=== PATIENT | male | born 1950 | race Caucasian/White ===

== ENCOUNTER 2021-12-21 00:11 | Day surgery (SDC) | payer OTHER, SELFPAY ==
[2021-12-12 15:06] VITALS: BMI 26.6
--- NOTE | 2021-12-12 15:17 | PC.NURSE ---
Report to the Outpatient Waiting Room, entrance under the green pavilion located off [facility], at time _0800_ on date _12/21/21_. OR Time: _1000_. - You and your visitor will be asked a series of questions to screen for COVID 19 for your protection. - A mask is required within the hospital. Preoperative COVID Testing Requirements: NONE Patients may have clear liquids (water, carbonated beverages, clear teas, apple juice) until 3 hours prior to surgery (0700 AM) with a maximum of 20 ounces. - No food from midnight until time of surgery Take the following medications with a SIP of water the morning of surgery: __PAIN PILL IF NEEDED__ Medications to discontinue per ANESTHESIA - _BALANCE OF NATURE 3 DAYS PRIOR TO SURGERY, Date to take last dose_12/17/21__ Please deodorant, or body powder the day of surgery. No jewelry (including any body piercings) or valuables the day of surgery, leave them at home. Please take a shower or bath the night before, or the morning of, surgery with an antibacterial soap. Wear comfortable, loose fitting clothing. - Jewelry must be removed prior to entering the operating room. Rings and piercings that are not removed may be cut off. - The hospital will not accept responsibility for valuables. - Please leave all valuables, including medications, at home the day of surgery. If you are going home after surgery, a licensed gravel truck driver must drive you home. - NO public transportation without another adult. - We recommend that an adult stay with you for 24 hours following discharge. - We also recommend that you do not drive, make important decision, drink alcoholic beverages, or take any drugs that were not prescribed by your health care provider for at least 24 hours after your discharge time. FOLLOW ALL INSTRUCTIONS GIVEN TO YOU BY DR. BURNS One visitor will be allowed to accompany the patient into the hospital. Patients visitor will be instructed to remain with patient at all times or leave the building. We will allow the visitor to come back to the postoperative area when patient is ready. VISITING HOURS 10AM-7PM, ONE VISITOR PER PT PER DAY, VISITORS MUST REMAIN IN PT'S ROOM WHILE VISITING. Telephone instructions given to ____PT and asked if any additional questions and then verbalized understanding. Patient advised to call surgeon office or pre surgery nurse liaisonVANESA [phone] if any additional questions.
--- NOTE | 2021-12-18 07:05 | P.HP_ITS ---
H&P: HPI History of Present Illness Date/Time: 12/18/21 07:05 pleasant 71-year-old male who has been in our practice since November 2019. He has seen an outside urologist in previously undergone [facility] laser prostatectomy. Despite that he continues to have both obstructive and irritable voiding symptoms. He had little response to medical therapy initially. His urinary frequency and urgency have improved with the addition of oxybutynin but he then developed progressive obstructive voiding symptoms. Recent outpatient cystoscopy shows a piece of residual hyperplastic tissue in the right lateral lobe of his prostate that is serving to cause significant outlet obstruction. After discussion of options he has elected to proceed with resection of that area prostate tissue. He is aware of the risk this including, but not limited to, persistent irritable or obstructive voiding symptoms, hematuria, retrograde ejaculation. Chief Complaint: Enlarged prostate Review of Systems Cardiovascular: Cardiovascular: Denies chest pain, Denies lightheadedness, Denies palpitations and Denies dyspnea Respiratory: Respiratory: Denies dyspnea Gastrointestinal: Gastrointestinal: Denies diarrhea, Denies nausea and Denies vomiting Genitourinary: Genitourinary: Denies hematuria and Denies dysuria Endocrine: Endocrine: Denies palpitations PMFSH Social History Social History Smoking packs per day: 0.5 Smoking cigarettes per day: 10.0 Years smoked: 51 Smoking pack-years: 25.50 Smoking status: Current every day smoker Tobacco type: cigarettes Second hand tobacco smoke exposure: Yes Alcohol intake: never Drinks per week: 6 Substance use: current Substance use type: marijuana Other substance usage details: STATES SMOKING AND EDIBLES 4-5 X WEEK Last use: 12/11/21 Living arrangements: with family Spiritual care concerns: No Meds Home Medications and Allergies Home Medications Medication Instructions Recorded Confirmed Type Balance Of Nature 6 tab-cap DAILY 12/12/21 12/12/21 History alprazolam 0.5 mg HS 12/12/21 12/12/21 History diclofenac sodium 75 mg PO QAM 12/12/21 12/12/21 History hydrocodone-acetaminophen 1 tablet Q4H PRN 12/12/21 12/12/21 History vibegron [Gemtesa] 75 mg PO QAM 12/12/21 12/12/21 History Allergies Allergy/AdvReac Type Severity Reaction Status Date / Time No Known Allergies Allergy Verified 12/12/21 15:01 Exam Const: General: no acute distress Resp: Effort & Inspection: normal respiratory effort GI: Inspection: non-distended GI Palp: No abdominal tenderness and No Guarding due to palpation present (GI) Auscultation: normal bowel sounds Assessment and Plan Assessment and plan (1) BPH loc w urin obs/LUTS: Code(s): N40.1 - Benign prostatic hyperplasia with lower urinary tract symptoms Status: Acute Assessment and Plan: * TURP (residual prostate tissue following laser prostatectomy)
[2021-12-21] VITALS (13 sets, daily range): BP systolic 120–155; BP diastolic 50–96; PULSE 75–89; RESP 10–20; TEMP 36.4–37.6; O2SAT 89–100
--- NOTE | 2021-12-21 06:44 | WPDHPUPDATE1 ---
History and Physical Update Update Date/Time: 12/21/21 06:44 History and Physical has been reviewed, including an updated exam of the patient. There are NO changes in the patient's condition. Risks, benefits, and alternatives have been discussed and questions answered. Patient agrees to proceed with procedure.
[2021-12-21] MEDS: LACTATED RINGERS 1,000 ML 30 ML IV CONT ×2 (08:13→09:52)
--- NOTE | 2021-12-21 08:26 | P.PNAN_ITS ---
Anes - Initial Pre Proc Eval Procedure: Operation Date: 12/21/21 10:00 Proposed Procedures p Mini Trans Urethral Resection Prostate - Nomi Crouch MD Date/Time: 12/21/21 08:26 Surgeon: Nomi Crouch MD Pre Op Diagnosis: BPH Patient Data Age: 71 Gender: M Height: 1.73 m Weight: 82 kg Last Vital Signs Temp 36.8 C 12/21/21 07:57 Pulse 84 12/21/21 07:57 Resp 16 12/21/21 07:57 BP 138/72 12/21/21 07:57 Pulse Ox 97 12/21/21 07:57 Allergies Allergy/AdvReac Type Severity Reaction Status Date / Time No Known Allergies Allergy Verified 12/21/21 08:01 Home Medications Medication Instructions Recorded Confirmed Type Balance Of Nature 6 tab-cap DAILY 12/12/21 12/21/21 History alprazolam 0.5 mg HS 12/12/21 12/12/21 History diclofenac sodium 75 mg PO QAM 12/12/21 12/21/21 History hydrocodone-acetaminophen 1 tablet Q4H PRN 12/12/21 12/21/21 History vibegron [Gemtesa] 75 mg PO QAM 12/12/21 12/21/21 History Patient hx anesthesia problems: none Family hx anesthesia problems: none Results Review: All pre-operative results and documents have been reviewed as part of the pre-operative evaluation. [facility] Past Medical History Medical History Anxiety Chronic back pain Marijuana smoker Overweight Smoker Surgical History Surgical History (Updated 12/21/21 @ 08:30 by Jm Escobar MD) H/O lumbosacral spine surgery History of total hip arthroplasty Social History Social History Smoking packs per day: 0.5 Smoking cigarettes per day: 10.0 Years smoked: 51 Smoking pack-years: 25.50 Smoking status: Current every day smoker Tobacco type: cigarettes Second hand tobacco smoke exposure: Yes Alcohol intake: never Drinks per week: 6 Substance use: current Substance use type: marijuana Other substance usage details: STATES SMOKING AND EDIBLES 4-5 X WEEK Last use: 12/11/21 Living arrangements: with family Spiritual care concerns: No Anes - Eval Final PreProcedure Day of Procedure 12/21/21 08:26 Patient weight: overweight Heart: regular rate and rhythm Lungs: clear to auscultation Airway: Mallampati scale class II Neurological: alert and oriented Last oral intake: >/= 8 hours ASA classification: III Emergent: no Anesthetic plan: proceed Anesthesia type and monitoring: general LMA and standard monitoring Results Review: All pre-operative results and documents have been reviewed as part of the pre-operative evaluation. Informed Consent: The patient's anesthetic plan and its attendant risks and benefits were discussed with the patient/family/POA. Questions were solicited and answers provided to the satisfaction of the patient/family/POA.
[2021-12-21] MEDS: ceFAZolin 2 GM/D5W 50 ML 2 GM/50 ML BAG IVPB (09:03)
[2021-12-21] MEDS: LIDOCAINE HCL 2% GEL UROJET 10 ML PKG MUCOUS MEM (09:19)
[2021-12-21] MEDS: fentaNYL CITRATE INJ (*CRX) 100 MCG/2 ML VIAL 25 MCG IV PUSH ×4 (10:27→11:05)
--- NOTE | 2021-12-21 11:41 | ADMGEN ---
This patient, Terry Cherry, was admitted to [facility] Surgery-9. Patient/family oriented to hospital policies and general routines including ID bracelet, bed and alarms, visiting hours, pain management, procedures, bathroom and other care routines, personal items, smoking policy, room service/diet, and visiting hours. Information on how to activate the Rapid Response Team has been discussed. Patient/Family are encouraged to report perceived risks to care and to ask questions if they do not understand what they are told or what they should do.
[2021-12-21] MEDS: DEXTROSE 5%/LACTATED RINGERS 1,000 ML 125 ML IV CONT (11:56)
[2021-12-21] MEDS: DOCUSATE SODIUM 100 MG CAPSULE PO (16:54)
[2021-12-21] MEDS: ALPRAZolam (*CRX) 0.5 MG TABLET PO (20:58)
[2021-12-21] MEDS: HYDROcodone/acetaminophen (*CRX) 5-325 MG TABLET 1 TAB PO (22:24)
[2021-12-22 01:09] VITALS: RESP 20
[2021-12-22 05:00] VITALS: BP 134/71; PULSE 91; RESP 20; TEMP 36.8; O2SAT 95
[2021-12-22] MEDS: HYDROcodone/acetaminophen (*CRX) 5-325 MG TABLET 1 TAB PO (05:58)
[2021-12-22 06:02] LABS: Hematocrit 45.9 % (42.0-52.0); Hemoglobin 15.7 g/dL (14.0-18.0)
[2021-12-22 06:38] LABS: Anion Gap 8 mmol/L (8-16); Blood Urea Nitrogen 14 mg/dL (9-20); Carbon Dioxide 23 mmol/L (22-30); Chloride 106 mmol/L (98-107); Estimated CRCL calculation 51 ml/min; Estimated Glomerular Filt Rate > 60; Glucose 115 mg/dL (65-110); Potassium 4.2 mmol/L (3.4-5.0); Sodium 137 mmol/L (137-145)
--- NOTE | 2021-12-22 07:21 | WPDUROPN2 ---
Progress Note: A&P Assessment and Plan (1) BPH loc w urin obs/LUTS: Code(s): N40.1 - Benign prostatic hyperplasia with lower urinary tract symptoms Status: Acute Assessment and Plan: Doing well POD #1 Stop CBI now / voiding trial later this moring. Anticipate discharge midday. Subjective Subjective Date/Time Seen: 12/22/21 07:21 Comfortable, no complaints. Review of Systems Cardiovascular: Cardiovascular: Denies chest pain, Denies lightheadedness, Denies palpitations and Denies dyspnea Respiratory: Respiratory: Denies dyspnea Gastrointestinal: Gastrointestinal: Denies diarrhea, Denies nausea and Denies vomiting Genitourinary: Genitourinary: Denies hematuria and Denies dysuria Endocrine: Endocrine: Denies palpitations Exam Const: General: no acute distress Resp: Effort & Inspection: normal respiratory effort GI: Inspection: non-distended GI Palp: No abdominal tenderness and No Guarding due to palpation present (GI) Auscultation: normal bowel sounds Objective Data Vital Signs Vital Signs: Vital Signs - 24 hr 12/21/21 07:57 12/21/21 09:58 12/21/21 10:13 Temperature 98.2 F 97.9 F Pulse Rate 84 79 83 Respiratory Rate 16 12 10 L Blood Pressure 138/72 120/78 155/96 H Pulse Oximetry 97 100 100 12/21/21 10:28 12/21/21 10:43 12/21/21 10:58 Temperature Pulse Rate 84 87 75 Respiratory Rate 12 12 12 Blood Pressure 153/88 H 147/76 H 137/91 H Pulse Oximetry 93 92 92 12/21/21 11:13 12/21/21 11:23 12/21/21 11:38 Temperature 97.6 F 97.5 F L Pulse Rate 79 84 80 Respiratory Rate 14 16 14 Blood Pressure 149/79 H 134/65 133/70 Pulse Oximetry 92 93 92 12/21/21 12:08 12/21/21 13:08 12/21/21 17:08 Temperature 97.9 F 99.5 F 98.3 F Pulse Rate 87 88 80 Respiratory Rate 14 16 14 Blood Pressure 132/83 135/76 127/65 Pulse Oximetry 94 94 94 12/21/21 21:00 12/22/21 01:09 12/22/21 05:00 Temperature 99.6 F 98.3 F Pulse Rate 89 91 Respiratory Rate 20 20 20 Blood Pressure 122/50 L 134/71 Pulse Oximetry 89 L 95 Intake/Output Intake/Output: Intake & Output 12/19/21 12/20/21 12/21/21 12/22/21 23:59 23:59 23:59 23:59 Intake Total 2304 6050 Output Total 5775 6000 Balance -3471 50 Meds/Results Medications: Active Medications Generic Name Dose Route Start Last Admin Trade Name Freq PRN Reason Stop Dose Admin Hydrocodone Bitart/Acetaminophen 1 tab 12/21/21 11:23 12/22/21 05:58 Hydrocodone/Acetaminophen (*Crx) 5-325 Mg Tablet PO 1 tab Q4H PRN Administration Pain Rated 1-6 Alprazolam 0.5 mg 12/21/21 21:00 12/21/21 20:58 Alprazolam (*Crx) 0.5 Mg Tablet PO 0.5 mg HS VALENTINA Administration Cephalexin HCl 500 mg 12/22/21 09:00 Cephalexin 500 Mg Capsule PO QID VALENTINA Docusate Sodium 100 mg 12/21/21 17:00 12/21/21 16:54 Docusate Sodium 100 Mg Capsule PO 100 mg BID VALENTINA Administration Hyoscyamine 0.125 mg 12/21/21 11:23 Hyoscyamine Sulfate 0.125 Mg Tablet SUBLINGUAL Q6H PRN Bladder Spasm Morphine Sulfate 2 mg 12/21/21 11:23 Morphine Sulfate (*Crx) 2 Mg/Ml Inj IV PUSH Q2H PRN Pain Rated 7-10 Naloxone HCl 0.1 mg 12/21/21 11:23 Naloxone Hcl 0.4 Mg/Ml Vial IV PUSH Q2M PRN Opiate Reversal Ondansetron HCl 4 mg 12/21/21 11:23 Ondansetron Inj 4 Mg/2 Ml Vial IV PUSH Q12H PRN Nausea And Vomiting Labs Labs: Laboratory Results - last 24 hr 12/22/21 12/22/21 05:51 05:51 Hgb 15.7 Hct 45.9 Sodium 137 Potassium 4.2 Chloride 106 Carbon Dioxide 23 Anion Gap 8 BUN 14 Creatinine 1.10 Estim Creat Clear Calc 51 Estimated GFR > 60 Glucose 115 H Calcium 9.0
[2021-12-22 08:00] VITALS: PULSE 91; RESP 20; O2SAT 95
[2021-12-22] MEDS: DOCUSATE SODIUM 100 MG CAPSULE PO (08:37)
[2021-12-22] MEDS: CEPHALEXIN 500 MG CAPSULE PO (08:37)
[2021-12-22 08:51] VITALS: BP 148/83; PULSE 68; RESP 17; TEMP 37.2; O2SAT 98
--- NOTE | 2021-12-22 11:05 | P.DS_ITS ---
DS: Admitting Diagnosis Discharge Date 12/22/2021 Admitting Diagnosis BPH DS: Discharge Diagnosis Discharge Diagnosis (1) BPH loc w urin obs/LUTS: Code(s): N40.1 - Benign prostatic hyperplasia with lower urinary tract symptoms Status: Acute DS: Summary Hospital Course Hospital Course: This patient with longstanding prostatism refractory for medical management was admitted on the morning of his planned TURP. The procedure was undertaken on that same day in an uneventful fashion. His post- operative course was, likewise, uneventful. On the evening of the procedure he was tolerating a diet. On POD#1 his urine was clear on CBI. The urine remained clear and, therefore, the catheter was removed late morning. The patient was observed for several hours, until he demonstrated he could void effectively without significant hematuria. He was discharged with careful instruction on limiting physical activity x2 weeks and plans to f/ in 2-3 weeks. At discharge he was comfortable and tolerating a diet. Time Spent with Patient Time attestation: Total time spent providing and/or coordinating discharge services: Exam Const: General: no acute distress Resp: Effort & Inspection: normal respiratory effort GI: Inspection: non-distended GI Palp: No abdominal tenderness and No Guarding due to palpation present (GI) Auscultation: normal bowel sounds DS: Data Data Completed and Pending Pending studies at discharge: Pending at discharge 12/21/21 09:34 Surgical [PTH] Routine Labs on day of discharge: Labs from last 24 hours 12/22/21 12/22/21 05:51 05:51 Hgb 15.7 Hct 45.9 Sodium 137 Potassium 4.2 Chloride 106 Carbon Dioxide 23 Anion Gap 8 BUN 14 Creatinine 1.10 Estim Creat Clear Calc 51 Estimated GFR > 60 Glucose 115 H Calcium 9.0 Discharge Plan Discharge Patient Disposition: Home, Self-Care Discharge Instructions: 1) Activity: No lifting/straining >15lbs. x2 weeks. 2) Diet: Resume normal pre-admission diet. 3) Follow-up: 2-3 weeks / call office for appointment ([phone]). Stand Alone Forms: General Discharge Instructions Discharge Orders: Discharge Order (Routine); Ordered 12/22/21 Ordered By: Nomi Crouch Discharge Medications: New sulfamethoxazole-trimethoprim 800-160 mg tablet 1 tablet PO Q12H Qty: 6 RF: 0 hydrocodone-acetaminophen 7.5-325 mg tablet 1 tablet PO Q6H PRN (Reason: pain) Qty: 12 RF: 0 docusate sodium [Colace] 100 mg capsule 100 mg PO DAILY Qty: 30 RF: 0 Continued alprazolam 0.5 mg tablet 0.5 mg HS RF: 0 hydrocodone-acetaminophen 7.5-325 mg tablet 1 tablet Q4H PRN (Reason: Pain) RF: 0 Balance Of Nature 6 tab-cap DAILY RF: 0 Held diclofenac sodium 75 mg tablet,delayed release (DR/EC) 75 mg PO QAM RF: 0 Hold Instructions: Resume on 12/25/21. Discontinued Gemtesa 75 mg Tablet 75 mg PO QAM RF: 0
--- NOTE | 2021-12-27 11:05 | P.OP_ITS ---
Procedure Note - Detailed Date of Procedure 12/27/21 Pre-op Diagnosis BPH Post-op Diagnosis same Procedure Performed TURP Surgeon Nomi Crouch MD Anesthesia general Description of Procedure The patient was brought to the operative suite where he is prepped and draped in routine sterile fashion while in the dorsal lithotomy position after the uneventful induction of a general LMA anesthetic. A 27 Malian resectoscope sheath was placed into his bladder. He had no urethral strictures. The patient had bilobar hyperplasia with no median lobe. The bladder itself was endoscopically normal, showing no mucosal hyperemia, intravesical neoplasm or foreign bodies. There was a single, orthotopic ureteral orifice bilaterally. These orifices were identified and preserved throughout the remainder of the procedure. He patient has evidence of prior laser prostatectomy but a moderate amount of residual tissue that is obstructing the prostatic urethra. The left lateral lobe was resected starting at the 6 o'clock position, working counter clockwise to the 12 o'clock position. Again, resection was carried out from the bladder neck to the verumontanum until the capsular fibers of the prostate were identified. The right lateral lobe was resected in a similar fashion starting at the 6 o'clock position working clockwise to the 12 o'clock position and carried out until the capsular fibers of the prostate were identified. Apical tissue was then circumferentially resected. All chips were evacuated from the bladder using an [employer] evacuator. Hemostasis was obtained with electric cautery. The ureteral orifices were again inspected and found to be without injury. Estimated blood loss throughout this procedure was []cc. The patient was taken to recovery room having tolerated this well. Estimated Blood Loss 50 Urine Output 200 Drains Yes Packing No Pathology yes Complications No immediate complications Condition stable Disposition PACU
== END 2021-12-22 12:05 | disposition home or self-care (01) ==
LOC: ANHSURGERY 10:15 → ANHSUROVER 11:27
PROVIDERS: PCP Internal Medicine; Visit Provider Urology
PROC: 0VT08ZZ Resection of Prostate, Via Natural or Artificial Opening Endoscopic (ICD-10-PCS; CPT 52601; principal; 2021-12-21 10:00)
DX: N40.1 Benign prostatic hyperplasia with lower urinary tract symptoms (principal); R33.8 Other retention of urine; F17.210 Nicotine dependence, cigarettes, uncomplicated; F12.90 Cannabis use, unspecified, uncomplicated; F41.9 Anxiety disorder, unspecified
CPT/HCPCS: 52601; 36415; 80048; 85014; 85018; 88305; A9270; C1758; J0690; J1100; J2250; J2405; J2704; J3010; J7120; J7121

== ENCOUNTER 2023-08-23 00:59 | Day surgery (SDC) | payer OTHER, SELFPAY ==
[2023-08-13 14:50] VITALS: BMI 26.6
--- NOTE | 2023-08-22 16:34 | PM.HPGS ---
History of Present Illness History of Present Illness Consent: Risks, benefits, and alternatives have been discussed and questions answered. Patient agrees to proceed with procedure. Chief complaint: HX colon polyps Narrative: Terry Cherry is a 72 year old male The history of colon polyps referred for colon cancer screening. Review of Systems Review of Systems: All systems reviewed & are unremarkable except as noted in HPI and below PMFSH Past Medical History Medical History Anxiety Chronic back pain Marijuana smoker Overweight Smoker Surgical History Surgical History H/O lumbosacral spine surgery History of total hip arthroplasty Social History Social History Smoking packs per day: 1 Smoking cigarettes per day: 20.0 Years smoked: 53 Smoking pack-years: 53.00 Smoking status: Former smoker Tobacco type: cigarettes Second hand tobacco smoke exposure: Yes Alcohol intake: current Drinks per week: 10 Alcohol use details: BEERS Substance use: current Substance use type: marijuana Other substance usage details: SMOKES AND GUMMIES Last use: 12/20/21 Living arrangements: with family Spiritual care concerns: No Meds Home Medications and Allergies Home Medications Medication Instructions Recorded Confirmed Type Balance Of Nature 6 tab-cap PO DAILY 12/12/21 08/23/23 History alprazolam 0.5 mg tablet 0.5 mg PO TID PRN Anxiety 12/12/21 08/23/23 History diclofenac sodium 75 mg 75 mg PO BID 12/12/21 08/23/23 History tablet,delayed release hydrocodone 7.5 mg-acetaminophen 1 tablet PO Q6H PRN pain #12 tabs 12/21/21 08/23/23 Rx 325 mg tablet Metamucil 2 gummy PO BID 08/13/23 08/23/23 History atorvastatin 40 mg tablet 40 mg PO DAILY 08/13/23 08/23/23 History carvedilol 3.125 mg tablet 3.125 mg PO BID 08/13/23 08/23/23 History nitroglycerin 0.4 mg sublingual 0.4 mg sublingual DIRECTED 08/13/23 08/23/23 History tablet oxybutynin chloride 10 mg 10 mg PO DAILY 08/13/23 08/23/23 History tablet,extended release 24 hr sacubitril 24 mg-valsartan 26 mg 1 tablet PO BID 08/13/23 08/23/23 History tablet (Entresto) spironolactone 25 mg tablet 12.5 mg PO DAILY 08/13/23 08/23/23 History Allergies Allergy/AdvReac Type Severity Reaction Status Date / Time No Known Allergies Allergy Verified 08/23/23 06:11 Exam Const: General: alert Orientation/consciousness: patient oriented x3 Resp: Auscultation: clear to auscultation bilaterally Cardio: Rhythm: regular rhythm GI: GI Palp: Yes Soft to palpation and No Tenderness to palpation present (GI) Neuro: General: patient oriented x3 Assessment and Plan Assessment and plan (1) Colon cancer screening: Code(s): Z12.11 - Encounter for screening for malignant neoplasm of colon Status: Acute Assessment and Plan: Colonoscopy with possible biopsy or polypectomy or cautery or injection of substances.
[2023-08-23 06:12] VITALS: BP 109/70; PULSE 90; RESP 18; TEMP 36.4; O2SAT 98
[2023-08-23] MEDS: LACTATED RINGERS 1,000 ML 150 ML IV CONT (06:14)
--- NOTE | 2023-08-23 07:20 | WPDANESEPPF ---
Anes - Initial Pre Proc Eval Procedure: Operation Date: 08/23/23 07:30 Proposed Procedures p Colonoscopy - Turner Ko MD Date/Time: 08/23/23 07:20 Surgeon: Turner Ko MD Pre Op Diagnosis: HX colon polyps Patient Data Age: 72 Gender: M Height: 1.73 m Weight: 82.2 kg Last Vital Signs Temp 97.6 F 08/23/23 06:12 Pulse 90 08/23/23 06:12 Resp 18 08/23/23 06:12 BP 109/70 08/23/23 06:12 Pulse Ox 98 08/23/23 06:12 O2 Del Method Room Air 08/23/23 06:12 Allergies Allergy/AdvReac Type Severity Reaction Status Date / Time No Known Allergies Allergy Verified 08/23/23 06:11 Home Medications Medication Instructions Recorded Confirmed Type Balance Of Nature 6 tab-cap PO DAILY 12/12/21 08/23/23 History alprazolam 0.5 mg tablet 0.5 mg PO TID PRN Anxiety 12/12/21 08/23/23 History diclofenac sodium 75 mg 75 mg PO BID 12/12/21 08/23/23 History tablet,delayed release hydrocodone 7.5 mg-acetaminophen 1 tablet PO Q6H PRN pain #12 tabs 12/21/21 08/23/23 Rx 325 mg tablet Metamucil 2 gummy PO BID 08/13/23 08/23/23 History atorvastatin 40 mg tablet 40 mg PO DAILY 08/13/23 08/23/23 History carvedilol 3.125 mg tablet 3.125 mg PO BID 08/13/23 08/23/23 History nitroglycerin 0.4 mg sublingual 0.4 mg sublingual DIRECTED 08/13/23 08/23/23 History tablet oxybutynin chloride 10 mg 10 mg PO DAILY 08/13/23 08/23/23 History tablet,extended release 24 hr sacubitril 24 mg-valsartan 26 mg 1 tablet PO BID 08/13/23 08/23/23 History tablet (Entresto) spironolactone 25 mg tablet 12.5 mg PO DAILY 08/13/23 08/23/23 History Patient hx anesthesia problems: none Family hx anesthesia problems: none Results Review: All pre-operative results and documents have been reviewed as part of the pre-operative evaluation. [facility] Past Medical History Medical History Anxiety Chronic back pain Marijuana smoker Overweight Smoker Surgical History Surgical History H/O lumbosacral spine surgery History of total hip arthroplasty Social History Social History Smoking packs per day: 1 Smoking cigarettes per day: 20.0 Years smoked: 53 Smoking pack-years: 53.00 Smoking status: Former smoker Tobacco type: cigarettes Second hand tobacco smoke exposure: Yes Alcohol intake: current Drinks per week: 10 Alcohol use details: BEERS Substance use: current Substance use type: marijuana Other substance usage details: SMOKES AND GUMMIES Last use: 12/20/21 Living arrangements: with family Spiritual care concerns: No Anes - Eval Final PreProcedure Day of Procedure 08/23/23 07:20 Patient weight: normal Heart: regular rate and rhythm Lungs: clear to auscultation Airway: Mallampati scale class II Neurological: alert and oriented Last oral intake: >/= 8 hours ASA classification: III Emergent: no Anesthetic plan: proceed Anesthesia type and monitoring: general GIVS and standard monitoring Results Review: All pre-operative results and documents have been reviewed as part of the pre-operative evaluation. Informed Consent: The patient's anesthetic plan and its attendant risks and benefits were discussed with the patient/family/POA. Questions were solicited and answers provided to the satisfaction of the patient/family/POA.
[2023-08-23 07:40] VITALS: BP 106/64; PULSE 79; RESP 21; O2SAT 94
[2023-08-23 07:50] VITALS: BP 97/64; PULSE 76; RESP 25; O2SAT 96
[2023-08-23 08:00] VITALS: BP 118/69; PULSE 74; RESP 23; O2SAT 94
== END 2023-08-23 08:05 | disposition home or self-care (01) ==
PROVIDERS: PCP Internal Medicine; Visit Provider Internal Medicine Gastroenterology
PROC: 0DJD8ZZ Inspection of Lower Intestinal Tract, Via Natural or Artificial Opening Endoscopic (ICD-10-PCS; CPT 45378; principal; 2023-08-23 07:30)
DX: Z12.11 Encounter for screening for malignant neoplasm of colon (principal); K57.30 Diverticulosis of large intestine without perforation or abscess without bleeding; K64.8 Other hemorrhoids; Z86.010 Personal history of colon polyps; F41.9 Anxiety disorder, unspecified; M54.9 Dorsalgia, unspecified; G89.29 Other chronic pain; F12.90 Cannabis use, unspecified, uncomplicated; Z87.891 Personal history of nicotine dependence; Z79.891 Long term (current) use of opiate analgesic
CPT/HCPCS: 45378; J2704; J7120

== ENCOUNTER 2024-05-01 14:38 | Outpatient (CLI) | payer OTHER, SELFPAY ==
--- NOTE | ~2024-05-01 | US_ITS ---
EXAMINATION: US carotid duplex BI DATE: 05/01/2024 15:30 INDICATION: Amaurosis fugax TECHNIQUE: Grayscale, color Doppler, and pulsed Doppler images of the cervical carotid arteries were obtained. The degree of vessel stenosis is placed in one of the following categories: normal, <50%, 5 0-69%, >=70% but less than near-occlusion, near-occlusion, or total occlusion. Note that percent sten osis relative to normal distal artery lumen diameter is indirectly measured from velocity measurement s as described by Deondre, et al. Radiology 2003; 229:340-346. COMPARISON: None. FINDINGS: RIGHT: The right common carotid artery (CCA) peak systolic velocity (PSV) is 56 cm/s. The right internal car otid artery (ICA) PSV is 64 cm/s. The right ICA end-diastolic velocity (EDV) is 22 cm/s. The right IC A/CCA PSV ratio is 1.1. Grayscale and color Doppler images yield an estimate of <50% diameter reducti on from plaque in the ICA. The external carotid artery (ECA) PSV is 94 cm/s. There is antegrade flow in the right vertebral artery. LEFT: The left CCA PSV is 65 cm/s. The left ICA PSV is 70 cm/s. The left ICA EDV is 25 cm/s. The left ICA/C CA PSV ratio is 1.1. Grayscale and color Doppler images yield an estimate of <50% diameter reduction from plaque in the ICA. The ECA PSV is 58 cm/s. There is antegrade flow in the left vertebral artery. IMPRESSION: 1. <50% stenosis in the right internal carotid artery. 2. <50% stenosis in the left internal carotid artery. 3. Cardiac arrhythmia is present. Correlate with EKG. Reviewed, dictated and finalized at location B.
== END 2024-05-01 14:39 | disposition home or self-care (01) ==
PROVIDERS: PCP Internal Medicine; Visit Provider Internal Medicine
DX: I65.23 Occlusion and stenosis of bilateral carotid arteries (principal)
CPT/HCPCS: 93880

== ENCOUNTER 2025-01-06 00:41 | Day surgery (SDC) | payer OTHER, SELFPAY ==
[2024-12-30 11:00] VITALS: BMI 28.1
--- OUTSIDE RECORDS SUMMARY | 2025-01-06 00:43 | XMS_ITS ---
Author Organization Unknown Medications Medication Instructions Effective Dates (start - stop) Status sacubitril 24 MG / valsartan 26 MG Oral Tablet [Entresto] - Completed spironolactone 25 MG Oral Tablet T00:00:00Z - Completed carvedilol 3.125 MG Oral Tablet 2023-06-29 6T00:00:00Z - Completed 60 ACTUAT testosterone 30 MG/ACTUAT Topical Solution - Completed alprazolam 0.5 MG Oral Tablet 2024-04-27 00:00:00Z - Completed carvedilol 3.125 MG Oral Tablet 2023-10-29 0T00:00:00Z - Completed sacubitril 24 MG / valsartan 26 MG Oral Tablet [Entresto] - Completed acetaminophen 325 MG / hydro codone bitartrate 7.5 MG Oral Tablet - Complet ed sacubitril 24 MG / valsartan 26 MG Oral Tablet [Entresto] - Completed atorvastatin 20 MG Oral Tablet 2024-04-08 T00:00:00Z - Completed 24 HR tolterodine tartrate 4 MG Extended Release Oral Capsule - Complet ed carvedilol 3.125 MG Oral Tablet 2023-05-29 5T00:00:00Z - Completed carvedilol 3.125 MG Oral Tablet 2024-02-26 5T00:00:00Z - Completed alprazolam 0.5 MG Oral Tablet 2023-10-23 00:00:00Z - Completed spironolactone 25 MG Oral Tablet T00:00:00Z - Completed sildenafil 100 MG Oral Tablet 2024-03-15 00:00:00Z - Completed 60 ACTUAT testosterone 30 MG/ACTUAT Topical Solution - Completed 24 HR oxybutynin chloride 10 MG Extended Release Oral Tablet - Complete d carvedilol 3.125 MG Oral Tablet 2024-01-27 5T00:00:00Z - Completed diclofenac sodium 75 MG Claudette yed Release Oral Tablet - Completed sildenafil 100 MG Oral Tablet 2024-04-25 00:00:00Z - Completed pantoprazole 40 MG Delayed R elease Oral Tablet - Completed diclofenac sodium 75 MG Claudette yed Release Oral Tablet - Completed acetaminophen 325 MG / hydro codone bitartrate 7.5 MG Oral Tablet - Complet ed diclofenac sodium 75 MG Claudette yed Release Oral Tablet - Completed 60 ACTUAT testosterone 30 MG/ACTUAT Topical Solution - Completed atorvastatin 40 MG Oral Tablet 2023-08-21 T00:00:00Z - Completed acetaminophen 325 MG / hydro codone bitartrate 7.5 MG Oral Tablet - Complet ed sacubitril 24 MG / valsartan 26 MG Oral Tablet [Entresto] - Completed sacubitril 24 MG / valsartan 26 MG Oral Tablet [Entresto] - Completed diclofenac sodium 75 MG Claudette yed Release Oral Tablet - Completed carvedilol 3.125 MG Oral Tablet 2023-07-29 5T00:00:00Z - Completed 60 ACTUAT testosterone 30 MG/ACTUAT Topical Solution - Completed carvedilol 3.125 MG Oral Tablet 2024-03-28 2T00:00:00Z - Completed sacubitril 24 MG / valsartan 26 MG Oral Tablet [Entresto] - Completed sacubitril 24 MG / valsartan 26 MG Oral Tablet [Entresto] - Completed spironolactone 25 MG Oral Tablet T00:00:00Z - Completed atorvastatin 20 MG Oral Tablet 2023-10-18 T00:00:00Z - Completed alprazolam 0.5 MG Oral Tablet 2023-12-26 00:00:00Z - Completed diclofenac sodium 75 MG Claudette yed Release Oral Tablet - Completed alprazolam 0.5 MG Oral Tablet 2023-06-21 00:00:00Z - Completed sacubitril 24 MG / valsartan 26 MG Oral Tablet [Entresto] - Completed spironolactone 25 MG Oral Tablet 00:00:00Z - Completed 60 ACTUAT testosterone 30 MG/ACTUAT Topical Solution - Completed carvedilol 3.125 MG Oral Tablet 2023-11-28 7T00:00:00Z - Completed 24 HR oxybutynin chloride 10 MG Extended Release Oral Tablet - Complete d alprazolam 0.5 MG Oral Tablet 2024-03-26 00:00:00Z - Completed 60 ACTUAT testosterone 30 MG/ACTUAT Topical Solution - Completed carvedilol 3.125 MG Oral Tablet 2023-08-29 2T00:00:00Z - Completed 24 HR oxybutynin chloride 10 MG Extended Release Oral Tablet - Complete d trazodone hydrochloride 50 M G Oral Tablet - Completed carvedilol 3.125 MG Oral Tablet 2023-12-27 6T00:00:00Z - Completed acetaminophen 325 MG / hydro codone bitartrate 7.5 MG Oral Tablet - Complet ed spironolactone 25 MG Oral Tablet 00:00:00Z - Completed sacubitril 24 MG / valsartan 26 MG Oral Tablet [Entresto] - Completed atorvastatin 20 MG Oral Tablet 2024-01-11 T00:00:00Z - Completed acetaminophen 325 MG / hydro codone bitartrate 7.5 MG Oral Tablet - Complet ed diclofenac sodium 75 MG Claudette yed Release Oral Tablet - Completed trazodone hydrochloride 50 M G Oral Tablet - Completed acetaminophen 325 MG / hydro codone bitartrate 7.5 MG Oral Tablet - Complet ed spironolactone 25 MG Oral Tablet :00:00Z - Completed alprazolam 0.5 MG Oral Tablet 2023-07-23 00:00:00Z - Completed diclofenac sodium 75 MG Claudette yed Release Oral Tablet - Completed acetaminophen 325 MG / hydro codone bitartrate 7.5 MG Oral Tablet - Complet ed diclofenac sodium 75 MG Claudette yed Release Oral Tablet - Completed pantoprazole 40 MG Delayed R elease Oral Tablet - Completed acetaminophen 325 MG / hydro codone bitartrate 7.5 MG Oral Tablet - Complet ed atorvastatin 40 MG Oral Tablet 2023-12-21 T00:00:00Z - Completed carvedilol 3.125 MG Oral Tablet 2023-09-28 1T00:00:00Z - Completed carvedilol 3.125 MG Oral Tablet 9T00:00:00Z - Completed trazodone hydrochloride 50 M G Oral Tablet - Completed sacubitril 24 MG / valsartan 26 MG Oral Tablet [Entresto] - Completed alprazolam 0.5 MG Oral Tablet 2023-09-23 00:00:00Z - Completed 60 ACTUAT testosterone 30 MG/ACTUAT Topical Solution - Completed 60 ACTUAT testosterone 30 MG/ACTUAT Topical Solution - Completed acetaminophen 325 MG / hydro codone bitartrate 7.5 MG Oral Tablet - Complet ed trazodone hydrochloride 50 M G Oral Tablet - Completed sacubitril 24 MG / valsartan 26 MG Oral Tablet [Entresto] - Completed atorvastatin 40 MG Oral Tablet 2024-03-15 T00:00:00Z - Completed acetaminophen 325 MG / hydro codone bitartrate 7.5 MG Oral Tablet - Complet ed 60 ACTUAT testosterone 30 MG/ACTUAT Topical Solution - Completed 60 ACTUAT testosterone 30 MG/ACTUAT Topical Solution - Completed 60 ACTUAT testosterone 30 MG/ACTUAT Topical Solution - Completed pantoprazole 40 MG Delayed R elease Oral Tablet - Completed diclofenac sodium 75 MG Claudette yed Release Oral Tablet - Completed sildenafil 100 MG Oral Tablet 2024-01-03 00:00:00Z - Completed diclofenac sodium 75 MG Claudette yed Release Oral Tablet - Completed alprazolam 0.5 MG Oral Tablet 2023-08-21 00:00:00Z - Completed Patient Care team information Name Category Status Period Participants - - Proposed period not known -
--- OUTSIDE RECORDS SUMMARY | 2025-01-06 00:44 | XMS_ITS ---
Author Organization [facility] Address [address] [place] [address] Phone Care Team Providers Care Transportation Design Engineer Name Role Phone REMA FERRARI Primary Care Provider Plan of Treatment Findings Encounter Date Discussed the importance of supportive shoe gear and limited barefoot walking. Discussed conservative management and potential for formal PT. Discussed possible steroid injection. Injection series:_ Discussed possible oral steroids if patient is not diabetic, otherwise use of NSAIDS if no history of GERD or stomach upset. Recommend cryotherapy/icing. Discussed the importance of rest and the need for immobilization. Rx: for patient to have _ dispensed from Physical therapy department written this date. Recommend use of compression stockings vs. ELIGIO wrap to control edema/swelling. Discussed potential need to order MRI if conservative management fails to resolve symptoms. Discussed potential need for surgical intervention if conservative management fails to resolve symptoms. Discussed potential need for surgical intervention if conservative management fails to resolve symptoms. Clinical findings were discussed with the patient and the proposed surgical treatment was a first MPJ fusion with second metatarsal head resection and PIPJ arthroplasty with possible pinning to the second toe. We discussed the recovery time would be approximately 6 to 8 weeks. Patient reports that he thinks it would be easier to just remove the second toe and would like to proceed with a right second toe amputation as he says most of his troubles from his second toe rubbing in the shoe. Patient would like to proceed with this once the weather warms up because he relies on use of firewood to heat his home and his has cancer and requires him to do most of the moving avoid. In the meantime I have dispensed a silicone toe pad to help with the rubbing to see if this gives him some relief. We also discussed cutting the end of the insert to make a little more room in his shoe. Patient is going to proceed with these options in the meantime. We will plan for surgery when patient calls back in the spring unless patient is doing well then he can just continue with conservative methods CHECK UP with ALEXEI DA SILVA DPM 12/04/2022 Last Documented On 3 10:28AM ; [facility] Discussed the importance of supportive shoe gear and limited barefoot walking. Discussed conservative management and potential for formal PT. Discussed possible steroid injection. Injection series:_ Discussed possible oral steroids if patient is not diabetic, otherwise use of NSAIDS if no history of GERD or stomach upset. Recommend cryotherapy/icing. Discussed the importance of rest and the need for immobilization. Rx: for patient to have _ dispensed from Physical therapy department written this date. Recommend use of compression stockings vs. ELIGIO wrap to control edema/swelling. Discussed potential need to order MRI if conservative management fails to resolve symptoms. Discussed potential need for surgical intervention if conservative management fails to resolve symptoms. Discussed potential need for surgical intervention if conservative management fails to resolve symptoms. Patient elects to try new inserts and new shoes at this time. Patient will give this a try and return to clinic in 6 to 8 weeks for reevaluation CHECK UP with ALEXEI DA SILVA DPM 11/06/2022 Last Documented On 3 8:42AM ; [facility] Instructions to patient Intervention and counseling on cessation of tobacco use Last Documented On 3 11:14AM ; [facility] Intervention and counseling on cessation of tobacco use Last Documented On 3 1:45PM ; [facility] Intervention and counseling on cessation of tobacco use Last Documented On 2 1:00PM ; [facility] Assessments Includes: Assessments for all patient encounters Findings Encounter Date [M20.40 - Other hammer toe(s ) (acquired), unspecified foot] hammer toe CHECK UP with ALEXEI DA SILVA DPM 12/04/2022 Last Documented On 3 10:28AM ; [facility] Arthralgia of right foot CHECK UP with ALEXEI DA SILVA DPM 12/04/2022 Last Documented On 3 10:28AM ; [facility] Bunion of the right foot CHECK UP with ALEXEI DA SILVA DPM 12/04/2022 Last Documented On 3 10:28AM ; [facility] [M20.40 - Other hammer toe(s ) (acquired), unspecified foot] hammer toe CHECK UP with ALEXEI DA SILVA DPM 11/06/2022 Last Documented On 3 8:42AM ; [facility] Arthralgia of right foot CHECK UP with ALEXEI BASILIOY DPM 11/06/2022 Last Documented On 3 8:42AM ; [facility] Bunion of the right foot CHECK UP with ALEXEI BASILIOY DPM 11/06/2022 Last Documented On 3 8:42AM ; [facility] [M79.674 - Pain in right toe (s)] pain in right toe CHECK UP with ALEXEI BASILIOY DPM 07/24/2022 Last Documented On 2 1:33PM ; [facility] Ingrowing nail CHECK UP with ALEXEI DA SILVA DPM 07/24/2022 Last Documented On 2 1:33PM ; [facility] [L03.031 - Cellulitis of rig ht toe] paronychia PODIATRY CONSULTATION- ESTABLISHED PATIENT with ALEXEI DA SILVA DPM 07/10/2022 Last Documented On 2 10:06AM ; [facility] [M79.674 - Pain in right toe (s)] pain in right toe PODIATRY CONSULTATION- ESTABLISHED PATIENT with ALEXEI BASILIOY DPM 07/10/2022 Last Documented On 2 10:06AM ; [facility] Ingrowing nail PODIATRY CONSULTATIO N- ESTABLISHED PATIENT with ALEXEI BASILIOY DPM 07/10/2022 Last Documented On 2 10:06AM ; [facility] Instructions Includes: Instructions for all patient encounters Instructions to patient Intervention and counseling on cessation of tobacco use Last Documented On 3 11:14AM ; [facility] Intervention and counseling on cessation of tobacco use Last Documented On 3 1:45PM ; [facility] Intervention and counseling on cessation of tobacco use Last Documented On 2 1:00PM ; [facility] Medical Equipment - Implanted Devices Includes: Current and historical Devices No Medical Equipment Recorded Medications Includes: Current and historical Medications Current Medications (continue as prescribed) Testosterone 30 MG/ACT Transdermal Solution 11/12/2022 Provider: GRECIA FERRARI Diagnosis: Last Documented On 3 11:13AM By Zahida RUIZ ; [facility] Atorvastatin Calcium 20 MG Oral Tablet 11/11/2022 Pr ovider: GRECIA FERRARI Diagnosis: Last Documented On 3 11:13AM By Zahida RUIZ ; [facility] Oxybutynin Chloride ER 10 MG Oral Tablet Extended Release 24 Hour 11/04/2022 Provider: Diagnosis: Last Documented On 3 1:43PM By Zahida RUIZ ; [facility] ALPRAZolam 0.5 MG Oral Tablet 07/13/2022 Provider: GRECIA FERRARI Diagnosis: Last Documented On 07/24/2022 12:59PM By Johnny RUIZ ; [facility] HYDROcodone-Acetaminophen 7.5-325 MG Oral Tablet 07/13 Provider: GRECIA FERRARI Diagnosis: Last Documented On 07/24/2022 12:59PM By Johnny RUIZ ; [facility] Testosterone 30 MG/ACT Transdermal Solution 07/12/2022 Provider: GRECIA FERRARI Diagnosis: Last Documented On 07/24/2022 12:59PM By Johnny RUIZ ; [facility] Diclofenac Sodium 75 MG Oral Tablet Delayed Release 07/09/2022 Provider: GRECIA FERRARI Diagnosis: Last Documented On 07/24/2022 12:59PM By Johnny RUIZ ; [facility] traZODone HCl 50 MG Oral Tablet 06/29/2022 Provider: GRECIA FERRARI Diagnosis: Last Documented On 07/24/2022 12:59PM By Johnny RUIZ ; [facility] Medications Administered Includes: Administered Medications in patient's chart No Administered Medications Recorded Results Includes: Results from 01/07/2024 through 01/06/2025 No Results Recorded For Specified Dates History of Present Illness History of Present Illness not supported for this document type No History of Present Illness Recorded Social History Description Last Updated Current smoker 11/06/2022 Last Documented On 3 8:42AM ; [facility] Not a job-related injury 07/10/2022 Last Documented On 2 10:06AM ; [facility] Smoking Status Unknown Medical History Includes: Medical History in patient's chart Description Last Updated Pain/condition occurs when weight-bearin g 07/10/2022 Last Documented On 2 10:06AM ; [facility] Family History Includes: Family History in patient's chart No Family History Recorded Review of Systems Review of Systems not supported for this document type No Review of Systems Recorded Mental Status No Mental Status Recorded Functional Status No Functional Status Recorded Physical Exam Physical Exam not supported for this document type No Physical Exam Recorded Allergies Includes: Active, inactive, and resolved Allergies No Known Allergies Insurance Includes: Active Insurance Policies Plan Name Member ID Group # Subscriber Relationship Effect elia Dates 1 - [facility] [id number] PEPITO MONGE Self Clinical Notes Includes: Signed Clinical Notes starting from 11/16/2022 No Clinical Notes Recorded
--- OUTSIDE RECORDS SUMMARY | 2025-01-06 00:44 | XMS_ITS | CONTINUITY OF CARE DOCUMENT ---
Author Name marcelokashkarina Address Unknown Organization [facility] Address [address] [place] [address] Phone [phone] Care Team Providers Care Professional Wrestler Name Role Phone Gabriela WHEELER, Beni Unavailable VEGA WHEELER, GRECIA Unavailable GRECIA FERRARI MD Unavailable PROBLEMS Condition Status Date Provider Notes Hypertension active Beni Ochoa MD Abnormal nuclear stress test active Go Garcia medkirstin Cardiomyopathy active Go Tapia CAD active Go Tapia Hyperglycemia active Beni Ochoa MD Elevated blood pressure active Beni mahoney MD Former smoker active Beni Ochoa MD Dyspnea on exertion active Beni lacey MD Fatigue active Beni Ochoa MD Chest pain active Beni Ochoa MD COPD active Beni Ochoa MD Hyperlipidemia active Beni Ochoa MD ENCOUNTERS Date Type Provider Location Encounter Diag nosis 6 - 6 In-person encounter Office Visit Beni Ochoa MD [facility] 8 - 1 In-person encounter Office Visit Beni Ochoa MD [facility] 9 - 9 In-person encounter Office Visit Beni Ochoa MD [facility] Abnormal nuclear stress testCADCardiomyopathy 1 - 2 In-person encounter Office Visit Beni Ochoa MD [facility] HyperlipidemiaCOPDChest painFatigueDyspnea on exertionFormer smokerElevated blood pressureHypertensionHyperglycemia VITAL SIGNS Date Observation Value Provider Body Mass Index (Ratio) 30.10 kg/m2 Seamus as Justyn blood pressure, cuff size regular Ke rri Gruenenfelder blood pressure, diastolic 96 mm[Hg] Ke rri Gruenenfelder blood pressure, systolic 156 mm[Hg] Ker ri Gruenenfelder oxygen saturation, oximetry 96 % Alexa Gruenenfelder pulse rate 78 /min Alexa Gruenenfe lder weight E&M 198 [lb_av] Alexa Gruenenfe lder height E&M 68 [in_i] Alexa Gruenenfe lder Body Mass Index (Ratio) 28.28 kg/m2 Go Ahmedzai blood pressure, cuff size regular Ke rri Gruenenfelder blood pressure, diastolic 72 mm[Hg] Ke rri Gruenenfelder blood pressure, systolic 122 mm[Hg] Ker ri Gruenenfelder oxygen saturation, oximetry 96 % Alexa Gruenenfelder respiratory rate E&M 12 /min Alexa G ruenenfelder pulse rate 66 /min Alexa Gruenenfe lder weight E&M 186 [lb_av] Alexa Gruenenfe lder height E&M 68 [in_i] Alexa Gruenenfe lder Body Mass Index (Ratio) 29.19 kg/m2 Go Ahmedzai blood pressure, cuff size regular Ke rri Gruenenfelder blood pressure, diastolic 80 mm[Hg] Ke rri Gruenenfelder blood pressure, systolic 122 mm[Hg] Nathalia ri Gruenenfelder oxygen saturation, oximetry 95 % Alexa Grhieunekendraelder respiratory rate E&M 12 /min Alexa G ruenenfelder pulse rate 75 /min Alexa Grbesse lder weight E&M 192 [lb_av] Alexa Grhieunenfe lder height E&M 68 [in_i] Alexa Rosa Iselanenfe lder Body Mass Index (Ratio) 29.80 kg/m2 Robert Ochoa MD blood pressure, cuff size regular Ke rri Gruenenfelder blood pressure, diastolic 76 mm[Hg] Ke rri Gruenenfelder blood pressure, systolic 164 mm[Hg] Nathalia ri Silvestreuenekendraelder oxygen saturation, oximetry 96 % Alexa Shaheenelder respiratory rate E&M 14 /min Alexa G brandienenfelder pulse rate 73 /min Alexa Shaheene lder weight E&M 196 [lb_av] Alexa Shaheene lder height E&M 68 [in_i] Alexa Rosa Iselanenfe er ALLERGIES No Known Drug Allergies HISTORY OF MEDICATION USE Medication Status Instructions Dates Provider Indications Com ments spironolactone 25 mg tablet active TAKE 1/2 TABLET BY MOUTH EVERY DAY Alexa Ruben carvedilol 3.125 mg tablet active TAKE 1 TABLET BY MOUTH TWICE A DAY [place] Entresto 24-26 mg tablet active TAKE 1 TABLET BY MOUTH TWICE A DAY Alejandro carvedilol 3.125 mg tablet completed Take 1 tablet by mouth twice a day - Alejandro spironolactone 25 mg tablet completed Take 1/2 tablet by mouth once a day - [place] Entresto 24-26 mg tablet completed 1 tablet by mouth twice a day - Gabby Robert nitroglycerin 0.4 mg tablet, sublingual active 1 tablet under tongue as directed as needed 1 tablet under tongue for chest pain. May repeat every 5 minutes if still having chest pain- to max of 3 tablets per episode.If no relief after 3rd dose, go to ER Go Tapia alprazolam 0.5 mg tablet active DAILY Jo-Ann Moreira NP diclofenac sodium 75 mg tablet,delayed release (DR/EC) active twice a day Jo-Ann Moreira NP testosterone 30 mg/actuation (1.5 mL) solution in metered pump w/robby active Alexa Miranda omeprazole 20 mg capsule,delayed release(DR/EC) completed - Jo-Ann Moreira NP trazodone 50 mg tablet active AT BEDTIME Jo-Ann Moreira NP atorvastatin 40 mg tablet active Take 1 tablet by mouth every evening Jo-Ann Moreira NP hydrocodone-aceta minophen 7.5-325 mg tablet active DAILY NEEDED Jo-Ann Moreira NP SOCIAL HISTORY Date Observation Value Provider smoking, year quit 2021 Jo-Ann Moreira NP number of years as a smoker 53 a Jo-Ann Moreira NP smoking history, tot al pack/day 2 ppd Jo-Ann Moreira NP cigarette use yes 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 Go Medinabrenda social history reviewed E&M revi ewed - no changes required Go Medinabrenda number of years as a smoker 53 a Alexa Miranda smoking history, tot al pack/day 2 ppd Alexa Miranda smoking, year quit 2021 Alexa robertser cigarette use yes Alexa eagle smoking status Former smoker Alexa geiger FUNCTIONAL STATUS Date Observation Value Provider HRA, CV Assess/Plan, Angina (inactive) Management Plan continue current therapy Jo-Ann Moreiar NP HRA, CV Assess/Plan, Angina (inactive) Management Plan continue current therapy Goodalys Medinabrenda HRA, CV Assess/Plan, Angina (inactive) Management Plan continue current therapy Go Tapia INSURANCE PROVIDERS Payer name Policy type / Coverage type [place] [employer] Other [id number] ADVANCE DIRECTIVES Name Date DISCUSSED - NO DECISION MADE TREATMENT PLAN Date Name Performer [id number],C, R educed EF 30-35% by cath on 02/2023, he has been started on Entresto and is tolerating. optimize medical therapy Go Carolbrenda [id number],C, n o chest pain n on obstructive CAD Go Carolbrenda [id number],C,m ultifactorial, likely due to cardiomypathy, CHF, his EF is 30-35, will optimize medical therapy Go Carolbrenda [id number],C, B P today: 122/72 P rior BP: 122/80 (03/15/2023) Go Carolbrenda [id number],C, M ild to moderate three vessel CAD with no significant obstructive disease by cath 02/2023 I reviewed the importance of lifestyle and dietary modification with the patient. o ptimize medical therapy [facility] [id number],C,R educed EF 30-35% by cath on 02/2023, he has been started on Entresto and is tolerating. optimize medical therapy W ill start Carvedilol 3.125 mg BID S tart Spironolactone 12.5 mg [facility] [id number],C,l ikley multifactorial, most likely due to cardiomypathy, possible CHF, his EF is 30-35, will optimize medical therapy [facility] [id number],S,non obstructi ve CAD [facility] [id number],C,B P is satisfactory. BP today: 122/80 P rior BP: 164/76 (02/15/2023) [facility] [id number],C,M ild to moderate three vessel CAD with no significant obstructive disease by cath 02/2023 I reviewed the importance of lifestyle and dietary modification with the patient. o ptimize medical therapy [facility] [id number],C, Beni mahoney MD [id number],C, Beni mahoney MD [id number],C, H is updated medication list for this problem includes: Atorvastatin 20 Mg Tablet (Atorvastatin) [facility] [id number],W, will check echo and stress nuclear to rule out ischemia. 20512 HIGH 60-74 min (CPT-99708) [facility] [id number],W, will check echo and stress nuclear to rule out ischemia. Take Nitro as needed for your chest pain O rders: C omplete Echo (CPT-96070) S tress Regadenoson (CPT-53516) C OMPREHENSIVE METABOLIC PANEL, W/EGFR (23378) L IPID PANEL (8090) H EMOGLOBIN A1c (496) C BC (INCLUDES DIFF/PLT) (6399) T SH, free T4, total T3 (7444) 9 9205 HIGH 60-74 min (CPT-77376) Go jakeyi [id number],N,c omplains of exertional chest pain, increased fatigue and exertional SOB, he has noticed a decrease in his exertional capapcity, will check echo and stress nuclear to rule out ischemia. Take Nitro as needed for your chest pain O rders: C omplete Echo (CPT-42096) S tress Regadenoson (CPT-58585) C OMPREHENSIVE METABOLIC PANEL, W/EGFR (84247) L IPID PANEL (7600) H EMOGLOBIN A1c (496) C BC (INCLUDES DIFF/PLT) (6399) T SH, free T4, total T3 (7444) 9 9205 HIGH 60-74 min (CPT-73227) Go tobias [id number],C,B P is elevated today but better at home, will have him monitor for now. Go tobias [facility]: n o chest pain n on obstructive CAD [facility]: H is updated medication list for this problem includes: Carvedilol 3.125 Mg Tablet (Carvedilol) ..... Take 1 tablet by mouth twice a day Spironolactone 25 Mg Tablet (Spironolactone) ..... Take 1/2 tablet by mouth every day [facility]: R educed EF 30-35% by cath on 02/2023, he has been started on Entresto and is tolerating. optimize medical therapy ECHO: 08/28/24 impaired LV relaxation, EF 45%, mild-mod MR, mild TR [facility]: M ild to moderate three vessel CAD with no significant obstructive disease by cath 02/2023 His updated medication list for this problem includes: Carvedilol 3.125 Mg Tablet (Carvedilol) ..... Take 1 tablet by mouth twice a day Nitroglycerin 0.4 Mg Tablet, Sublingual (Nitroglycerin) ..... 1 tablet under tongue as directed as needed 1 tablet under tongue for chest pain. may repeat every 5 minutes if still having chest pain- to max of 3 tablets per episode.if no relief after 3rd dose, go to er Go Tapia Electrophysiology: H is updated medication list for this problem includes: Atorvastatin 40 Mg Tablet (Atorvastatin) ..... Take 1 tablet by mouth every evening Jo-Ann Moreira NP Electrophysiology: B P today: 156/96 P rior BP: 122/72 (06/14/2023) His updated medication list for this problem includes: Spironolactone 25 Mg Tablet (Spironolactone) ..... Take 1/2 tablet by mouth every day Carvedilol 3.125 Mg Tablet (Carvedilol) ..... Take 1 tablet by mouth twice a day Jo-Ann Moreira NP Electrophysiology:cath 02/2023 se e #2 Jo-Ann Moreira NP Electrophysiology: M ild to moderate three vessel CAD with no significant obstructive disease by cath 02/2023 I reviewed the importance of lifestyle and dietary modification with the patient. o ptimize medical therapy Jo-Ann Moreira NP Electrophysiology: R educed EF 30-35% by cath on 02/2023, he has been started on Entresto and is tolerating. optimize medical therapy ECHO: 08/28/24 impaired LV relaxation, EF 45%, mild-mod MR, mild TR will repeat ECHO in 1 year Jo-Ann Moreira NP Electrophysiology: R educed EF 30-35% by cath on 02/2023, he has been started on Entresto and is tolerating. optimize medical therapy [facility] Elect[facility]: n o chest pain n on obstructive CAD [facility] Electrophysiology:mu ltifactorial, likely due to cardiomypathy, CHF, his EF is 30-35, will optimize medical therapy Goodalys Tapia Electrophysiology: B P today: 122/72 P rior BP: 122/80 (03/15/2023) [facility] Electrophysiology: M ild to moderate three vessel CAD with no significant obstructive disease by cath 02/2023 I reviewed the importance of lifestyle and dietary modification with the patient. o ptimize medical therapy [facility] Electrophysiology:Re duced EF 30-35% by cath on 02/2023, he has been started on Entresto and is tolerating. optimize medical therapy W ill start Carvedilol 3.125 mg BID S tart Spironolactone 12.5 mg [facility] Electrophysiology:jackie russell multifactorial, most likely due to cardiomypathy, possible CHF, his EF is 30-35, will optimize medical [facility] Electrophys[facility]:non obstructiv e CAD [facility] Electrophysiology:BP is satisfactory. BP today: 122/80 P rior BP: 164/76 (02/15/2023) [facility] Elect[facility]:Mi ld to moderate three vessel CAD with no significant obstructive disease by cath 02/2023 I reviewed the importance of lifestyle and dietary modification with the patient. o ptimize medical therapy Go [facility] Cardiology Beni lacey MD Cardiology Beni lacey MD Cardiology: H is updated medication list for this problem includes: Atorvastatin 20 Mg Tablet (Atorvastatin) Beni Ochoa MD Cardiology: will se ck echo and stress nuclear to rule out ischemia. 74043 HIGH 60-74 min (CPT-58325) Beni Ochoa MD Cardiology: will se ck echo and stress nuclear to rule out ischemia. Take Nitro as needed for your chest pain O rders: C omplete Echo (CPT-74200) S tress Regadenoson (CPT-42640) C OMPREHENSIVE METABOLIC PANEL, W/EGFR (22787) L IPID PANEL (7600) H EMOGLOBIN A1c (496) C BC (INCLUDES DIFF/PLT) (6399) T SH, free T4, total T3 (7444) 9 9205 HIGH 60-74 min (CPT-85698) Beni Ochoa MD Cardiology:complains of exertional chest pain, increased fatigue and exertional SOB, he has noticed a decrease in his exertional capapcity, will check echo and stress nuclear to rule out ischemia. T reid Nitro as needed for your chest pain O rders: C omplete Echo (CPT-85899) S tress Regadenoson (CPT-44863) C OMPREHENSIVE METABOLIC PANEL, W/EGFR (13071) L IPID PANEL (7600) HEMOGLOBIN A1c (496) C BC (INCLUDES DIFF/PLT) (6399) T SH, free T4, total T3 (7444) 9 9205 HIGH 60-74 min (CPT-19332) Beni Ochoa MD Cardiology:BP is chey[place] vated today but better at home, will have him monitor for now. Goodalys Tapia Date Name RPM (remote patient monitoring) Complete Echo Carotid Duplex Bilat eral Complete Echo Aorta Duplex Ultraso und TSH, free T4, total T3 CBC (INCLUDES DIFF/P LT) HEMOGLOBIN A1c LIPID PANEL COMPREHENSIVE METABO LIC PANEL, W/EGFR Stress Regadenoson Complete Echo HISTORY OF PROCEDURES Procedure Date Procedure Name Provider Procedure Notes S tatus Schedule Followup Beni Ochoa MD 1 YEAR Lamont OCHOA completed EKG Beni Ochoa MD comp leted EKG Beni Ochoa MD comp leted EKG Beni Ochoa MD comp leted
--- OUTSIDE RECORDS SUMMARY | 2025-01-06 00:44 | XMS_ITS | Clinical Summary ---
Author Organization [facility] Address [address] [place] [address] Phone Care Team Providers Care Board Certified Arts Therapist Name Role Phone REMA FERRARI A Primary Care Provider Reason for Visit and Chief Complaint The Chief Complaint is: F/U FOOT PAIN, PT STATES HES STILL IN PAIN AND CAN ONLY BE ON HIS FEET FOR ABOUT 3 OR 4 HOURS Plan of Treatment Discussed the importance of supportive shoe gear [...] then he can just continue with conservative methods. - Last Documented On 12/09/2022 10:28AM ; [facility] X-rays were reviewed and patient does reveal subchondral sclerosis to the first MPJ as well as some mild osteophyte from formation at the level of the first MPJ. There is decreased joint space noted. There is an increased intermetatarsal angle appreciated to the right foot. There is hammertoe contractures evident on the lateral view of the lesser digits. - Last Documented On 12/09/2022 10:28AM ; [facility] The patient has been advised of the approximate disability involved for these procedures. In addition, the patient has been advised as to the alternatives of care, including continued conservative care as well as surgical procedures. The patient has failed all conservative treatment at this point. The patient understands that if surgical procedures are performed, there are risks and complications that could occur, including but not limited to: hematoma formation, damage to the nervous system, seroma formation, development of a DVT or phlebitis, infection, painful scar tissue formation, stiffness, limited motion, delayed-union, non-union, mal- union, impaired healing, increased chance of swelling, swelling, reaction to implanted biomaterials, over-correction, under-correction with recurrence of the deformities, continued pain, loss of limb, loss of life, and the possibility that future surgery may need to be performed. The patient was given the opportunity to ask questions which were answered. The patient voiced no concerns and will consider all these options. Patient desires surgical intervention. No guarantees were given or implied. Pt consented freely to surgical intervention. I spent approximately 30 minutes discussing the surgical procedures at length. I reviewed in detail the procedure to be performed, postoperative course, disability to be expected, healing time, prognosis and the importance of their following the recommended postoperative care. Possible complications discussed included but not limited to recurrence of deformity, postoperative pain, swelling, stiffness, rejection of the implant if utilized, return to surgery, infection, residual pain, possible blood clot formation, bleeding, etc. Possible complications relating to over activity and limitations during the postoperative period were reviewed. The patient has responsibilities to help insure successful outcome of the surgery. Postoperative oral and written instructions were reviewed and postoperative course of treatment discussed in detail. Management of postoperative pain was discussed. All questions related to preoperative, operative and postoperative course of treatment were answered to their understanding and satisfaction. RTO and follow up after surgery is necessary and expected and agreed to by the patient. The patient acknowledged understanding of the above and agrees to follow all instructions and protocols. No guarantee or warranty was given or implied as to the results of the surgery. Consent was reviewed. - Last Documented On 12/09/2022 10:28AM ; [facility] Instructions to patient Intervention and counseling on cessation of tobacco use Last Documented On 3 11:14AM ; [facility] Assessments Includes: Assessments from this encounter Findings - [M25.571 - Pain in right ankle and joints of right foot] Arthralgia of right foot - Last Documented On 12/09/2022 10:28AM ; [facility] - [M21.611 - Bunion of right foot] Bunion of the right foot - Last Documented On 12/09/2022 10:28AM ; [facility] - [M20.40 - Other hammer toe(s) (acquired), unspecified foot] Hammer toe - Last Documented On 12/09/2022 10:28AM ; [facility] Instructions Includes: Instructions from this encounter Instructions to patient Intervention and counseling on cessation of tobacco use Last Documented On 3 11:14AM ; [facility] Medical Equipment - Implanted Devices Includes: Current Devices No Medical Equipment Recorded Medications Includes: Medications discussed during this encounter and other current Medications Current Medications (continue as prescribed) Testosterone 30 MG/ACT Transdermal Solution 11/12/2022 Provider: GRECIA FERRARI Diagnosis: Last Documented On 3 11:13AM By Zahida RUIZ ; [facility] Atorvastatin Calcium 20 MG Oral Tablet 11/11/2022 Pr ovider: GRECIA FERRARI Diagnosis: Last Documented On 3 11:13AM By Zahida RUIZ ; [facility] Oxybutynin Chloride ER 10 MG Oral Tablet Extended Release 24 Hour 11/04/2022 Provider: Diagnosis: Last Documented On 3 1:43PM By Zahida RUIZ ; [facility] ALPRAZolam 0.5 MG Oral Tablet 07/13/2022 Provider: GRECIA FERRARI Diagnosis: Last Documented On 07/24/2022 12:59PM By Johnny RUIZ ; [facility] HYDROcodone-Acetaminophen 7.5-325 MG Oral Tablet 07/13 Provider: GRECIA FERRARI Diagnosis: Last Documented On 07/24/2022 12:59PM By Johnny RUIZ ; [facility] Testosterone 30 MG/ACT Transdermal Solution 07/12/2022 Provider: GRECIA FERRARI Diagnosis: Last Documented On 07/24/2022 12:59PM By Johnny RUIZ ; [facility] Diclofenac Sodium 75 MG Oral Tablet Delayed Release 07/09/2022 Provider: GRECIA FERRARI Diagnosis: Last Documented On 07/24/2022 12:59PM By Johnny RUIZ ; [facility] traZODone HCl 50 MG Oral Tablet 06/29/2022 Provider: GRECIA FERRARI Diagnosis: Last Documented On 07/24/2022 12:59PM By Johnny RUIZ ; [facility] Medications Administered Includes: Administered Medications from this encounter No Administered Medications Recorded Vital Signs Includes: Vital Signs from this encounter Vital Name 12/04/2022 11:14A Blood Pressure Sitting R 138/84 Pulse Rate-Sitting (bpm) 63 Respiration Rate (breaths/min) 20 Height (in) 69 Weight (lb) 198 Body Mass Index 29.2 Body Surface Area 2.1 Oxygen Saturation (%) 95 Last Documented: On 12/04/2022 11:15A M ; [facility] Results Includes: Results discussed during this encounter No Results Recorded For Specified Dates History of Present Illness Includes: History of Present Illness from this encounter VERONICA MONGE is a 72 year old male. - Allergy list reviewed - Problem list reviewed - Medication reconciliation performed - Medication list reviewed - Primary Care Provider: GRECIA FERRARI - Sharp pain - Stabbing - Pain lasts for hours - Pain is shooting - Foot or ankle problem is new - Right foot pain dorsal aspect over the forefoot pain/condition location: toe pain/condition started gradually - Pain/condition started months ago Patient is a pleasant 72-year-old male that presents to clinic today For evaluation of his bunion pain as well as ball the foot pain to the right foot. He reports that he does like the insert for his left foot however he feels that he cannot have enough room in the right shoe to accommodate this and notices that the left second toe is rubbing on the top of his shoe causing him significant discomfort. Social History Description Last Updated Current smoker 11/06/2022 Last Documented On 3 11:13AM ; [facility] Smoking Status Unknown Procedures and Surgical History Includes: Procedures from this encounter Procedures Code Diagnosis Performing Provider Service L ocation Service Date intervention and counseling on cessation of tobacco use 4000F Last Documented On 3 11:14AM ; [facility] use of tobacco assessment performed 1000F Last Documented On 3 10:27AM ; [facility] patient screened for future fall risk: documentation of any fall with injury in past year 1100F Last Documented On 3 11:14AM ; [facility] review of medications documented 1160F Last Documented On 3 10:27AM ; [facility] encouragement to exercise Last Documented On 3 10:27AM ; [facility] Clinical summary provided to patient Last Documented On 3 10:27AM ; [facility] Medical History Includes: Medical History addressed during this encounter Description Last Updated Pain/condition occurs when weight-bearin g 07/10/2022 Last Documented On 3 11:13AM ; [facility] Family History Includes: Family History addressed during this encounter No Family History Recorded Review of Systems Includes: Review of Systems from this encounter Neurological: No ataxia. Psychological: No fear of falling. Past Medical: No fall in the past 6 months. Mental Status Includes: Mental Status from this encounter No Mental Status Recorded Functional Status Includes: Functional Status from this encounter No Functional Status Recorded Physical Exam Includes: Physical Exam from this encounter Allergies Includes: Active Allergies No Known Allergies Encounters Encounter Provider Location Date Check-In Time Check-Out Time Diagnosis CHECK UP ALEXEI DA SILVA DPM [facility] 3 11:02AM 11:23AM Bunion Right,Acquire d Deformity of Toe - Hammer Toe,Arthralgi a - Right Foot Insurance Includes: Active Insurance Policies Plan Name Member ID Group # Subscriber Relationship Effect elia Dates 1 - [employer] [id number] PEPITO MONGE Self Clinical Notes Includes: Clinical Notes from this encounter * Progress note Date Encounter Last Documented by 12/04/2022 CHECK UP Last documented on 12/09/2022; 10:28 AM, ALEXEI DA SILVA DPM; [facility] Chief Complaint The Chief Complaint is: F/U FOOT PAIN, PT STATES HES STILL IN PAIN AND CAN ONLY BE ON HIS FEET FOR ABOUT 3 OR 4 HOURS. History of Present Illness PEPITO MONGE is a 72 year old male. - Allergy list reviewed - Problem list reviewed - Medication reconciliation performed - Medication list reviewed - Primary Care Provider: GRECIA FERRARI - Sharp pain - Stabbing - Pain lasts for hours - Pain is shooting - Foot or ankle problem is new - Right foot pain dorsal aspect over the forefoot pain/condition location: toe pain/condition started gradually - Pain/condition started months ago Patient is a pleasant 72-year-old male that presents to clinic today For evaluation of his bunion pain as well as ball the foot pain to the right foot. He reports that he does like the insert for his left foot however he feels that he cannot have enough room in the right shoe to accommodate this and notices that the left second toe is rubbing on the top of his shoe causing him significant discomfort. Current Medication - ALPRAZolam 0.5 MG Oral Tablet 30 days, 0 refills - Atorvastatin Calcium 20 MG Oral Tablet 90 days, 0 refills - Diclofenac Sodium 75 MG Oral Tablet Delayed Release 30 days, 0 refills - HYDROcodone-Acetaminophen 7.5-325 MG Oral Tablet 30 days, 0 refills - Oxybutynin Chloride ER 10 MG Oral Tablet Extended Release 24 Hour 90 days, 0 refills - Testosterone 30 MG/ACT Transdermal Solution 30 days, 0 refills - Testosterone 30 MG/ACT Transdermal Solution 30 days, 0 refills - traZODone HCl 50 MG Oral Tablet 30 days, 0 refills Past Medical/Surgical History Reported: Medical: Pain/condition occurs when weight-bearing. Social History Tobacco use: Current smoker. Allergies - No Known Allergies Review Of Systems Neurological: No ataxia. Psychological: No fear of falling. Past Medical: No fall in the past 6 months. Physical Findings - Vitals taken 12/04/2022 11:14 am BP-Sitting R 138/84 mmHg Pulse Rate-Sitting 63 bpm Respiration Rate 20 per min Height 69 in Weight 198 lbs Body Mass Index 29.2 kg/m2 Body Surface Area 2.1 m2 Oxygen Saturation 95 % Constitution: Well-developed and well-nourished. Gait appears normal. No apparent distress. Alert and oriented to person, place, and time. Integument: There are no varicosities. Skin appears moist, warm, and supple with positive hair growth. There are no color changes. No open lesions. No macerations, No Hyperkeratotic lesions. Vascular: Dorsalis pedis and posterior tibial pulses are strong bilaterally with capillary filling time less than 3 seconds to all digits. There is no peripheral edema. Neurological: Grossly intact to sharp/dull. Vibratory: Intact. Musculoskeletal: minimal pain on palpation to the second metatarsal head, right foot. There is a negative anterior drawer to the right second digit. He does have lateral deviation to the right hallux with a significant medial prominence noted. There is no erythema noted to the bunion. There is decreased range of motion appreciated to the first MPJ without crepitus evident. There is mild pain with end range of motion mostly in plantarflexion, right. Pain mostly with the dorsal aspect of the left second toe. Assessment - [M25.571 - Pain in right ankle and joints of right foot] Arthralgia of right foot - [M21.611 - Bunion of right foot] Bunion of the right foot - [M20.40 - Other hammer toe(s) (acquired), unspecified foot] Hammer toe Therapy - Encouragement to exercise. - Intervention and counseling on cessation of tobacco use. - Clinical summary provided to patient. Plan Discussed the importance of supportive shoe gear [...] then he can just continue with conservative methods. X-rays were reviewed and patient does reveal subchondral sclerosis to the first MPJ as well as some mild osteophyte from formation at the level of the first MPJ. There is decreased joint space noted. There is an increased intermetatarsal angle appreciated to the right foot. There is hammertoe contractures evident on the lateral view of the lesser digits. The patient has been advised of the approximate disability involved for these procedures. In addition, the patient has been advised as to the alternatives of care, including continued conservative care as well as surgical procedures. The patient has failed all conservative treatment at this point. The patient understands that if surgical procedures are performed, there are risks and complications that could occur, including but not limited to: hematoma formation, damage to the nervous system, seroma formation, development of a DVT or phlebitis, infection, painful scar tissue formation, stiffness, limited motion, delayed-union, non-union, mal- union, impaired healing, increased chance of swelling, swelling, reaction to implanted biomaterials, over-correction, under-correction with recurrence of the deformities, continued pain, loss of limb, loss of life, and the possibility that future surgery may need to be performed. The patient was given the opportunity to ask questions which were answered. The patient voiced no concerns and will consider all these options. Patient desires surgical intervention. No guarantees were given or implied. Pt consented freely to surgical intervention. I spent approximately 30 minutes discussing the surgical procedures at length. I reviewed in detail the procedure to be performed, postoperative course, disability to be expected, healing time, prognosis and the importance of their following the recommended postoperative care. Possible complications discussed included but not limited to recurrence of deformity, postoperative pain, swelling, stiffness, rejection of the implant if utilized, return to surgery, infection, residual pain, possible blood clot formation, bleeding, etc. Possible complications relating to over activity and limitations during the postoperative period were reviewed. The patient has responsibilities to help insure successful outcome of the surgery. Postoperative oral and written instructions were reviewed and postoperative course of treatment discussed in detail. Management of postoperative pain was discussed. All questions related to preoperative, operative and postoperative course of treatment were answered to their understanding and satisfaction. RTO and follow up after surgery is necessary and expected and agreed to by the patient. The patient acknowledged understanding of the above and agrees to follow all instructions and protocols. No guarantee or warranty was given or implied as to the results of the surgery. Consent was reviewed. Practice Management Use of tobacco assessment performed and patient screened for future fall risk documentation of any fall with injury in past year Review of medications documented. Health Reminders - Assess BMI satisfied 12/04/2022. - Assess Screening for Fall Risk satisfied 12/04/2022. - Assess Tobacco Use satisfied 12/09/2022. - Smoking & Tobacco Cessation Intervention and Counseling satisfied 12/04/2022.
--- OUTSIDE RECORDS SUMMARY | 2025-01-06 00:44 | XMS_ITS ---
Care Plan - [facility] Created on: January 06, 2025 PEPITO MONGE : 1950 Sex: Male Author Organization [facility] Address [address] [place] [address] Phone Care Team Providers Care Associate Faculty Name Role Phone REMA FERRARI Primary Care Provider [phone]
--- OUTSIDE RECORDS SUMMARY | 2025-01-06 00:44 | XMS_ITS | Clinical Summary ---
Author Organization [facility] Address [address] [place] [address] Phone Care Team Providers Care Dental Therapist Name Role Phone FERRARIREMA A Primary Care Provider Reason for Visit and Chief Complaint visit for: right foot pain - The Chief Complaint is: PT C/O RIGHT FOOT PAIN IN THE BALL OF THE FOOT Plan of Treatment Discussed the importance of [...] clinic in 6 to 8 weeks for reevaluation. - Last Documented On 11/09/2022 8:42AM ; [facility] Patient seen and evaluated. Clinical and radiographic findings were discussed. Ultimately we discussed treatment for bunion options including conservative and surgical means. Patient would like to proceed conservatively at this time. X-rays were reviewed and patient does reveal subchondral sclerosis to the first MPJ as well as some mild osteophyte from formation at the level of the first MPJ. There is decreased joint space noted. There is an increased intermetatarsal angle appreciated to the right foot. There is hammertoe contractures evident on the lateral view of the lesser digits. - Last Documented On 11/09/2022 8:42AM ; [facility] Instructions to patient Intervention and counseling on cessation of tobacco use Last Documented On 3 1:45PM ; [facility] Assessments Includes: Assessments from this encounter Findings - [M25.571 - Pain in right ankle and joints of right foot] Arthralgia of right foot - Last Documented On 11/09/2022 8:42AM ; [facility] - [M21.611 - Bunion of right foot] Bunion of the right foot - Last Documented On 11/09/2022 8:42AM ; [facility] - [M20.40 - Other hammer toe(s) (acquired), unspecified foot] Hammer toe - Last Documented On 11/09/2022 8:42AM ; [facility] Instructions Includes: Instructions from this encounter Instructions to patient Intervention and counseling on cessation of tobacco use Last Documented On 3 1:45PM ; [facility] Medical Equipment - Implanted Devices Includes: Current Devices No Medical Equipment Recorded Medications Includes: Medications discussed during this encounter and other current Medications Current Medications (continue as prescribed) Testosterone 30 MG/ACT Transdermal Solution 11/12/2022 Provider: GRECIA FERRARI Diagnosis: Last Documented On 3 11:13AM By Zahida RUIZ ; [facility] Atorvastatin Calcium 20 MG Oral Tablet 11/11/2022 Pr ovider: GRECIA FERRARI Diagnosis: Last Documented On 3 11:13AM By Zahida RUIZ ; [facility] Oxybutynin Chloride ER 10 MG Oral Tablet Extended Release 24 Hour 11/04/2022 Provider: Diagnosis: Last Documented On 3 1:43PM By Zahida RUIZ ; [facility] ALPRAZolam 0.5 MG Oral Tablet 07/13/2022 Provider: GRECIA FERRARI Diagnosis: Last Documented On 07/24/2022 12:59PM By Johnny RUIZ ; [facility] HYDROcodone-Acetaminophen 7.5-325 MG Oral Tablet 07/13 Provider: GRECIA FERRARI Diagnosis: Last Documented On 07/24/2022 12:59PM By Johnny RUIZ ; [facility] Testosterone 30 MG/ACT Transdermal Solution 07/12/2022 Provider: GRECIA FERRARI Diagnosis: Last Documented On 07/24/2022 12:59PM By Johnny RUIZ ; [facility] Diclofenac Sodium 75 MG Oral Tablet Delayed Release 07/09/2022 Provider: GRECIA FERRARI Diagnosis: Last Documented On 07/24/2022 12:59PM By Johnny RUIZ ; [facility] traZODone HCl 50 MG Oral Tablet 06/29/2022 Provider: GRECIA FERRARI Diagnosis: Last Documented On 07/24/2022 12:59PM By Johnny RUIZ ; [facility] Medications Administered Includes: Administered Medications from this encounter No Administered Medications Recorded Vital Signs Includes: Vital Signs from this encounter Vital Name 11/06/2022 01:45P Blood Pressure Sitting R 158/100 Pulse Rate-Sitting (bpm) 87 Respiration Rate (breaths/min) 20 Height (in) 69 Weight (lb) 192 Body Mass Index 28.4 Body Surface Area (m2) 2.0 Oxygen Saturation (%) 95 Last Documented: On 11/06/2022 1:52PM ; [facility] Results Includes: Results discussed during this encounter No Results Recorded For Specified Dates History of Present Illness Includes: History of Present Illness from this encounter VERONICA MONGE is a 71 year old male. - Allergy list reviewed - Allergy list reviewed - Problem list [...] started months ago Patient is a pleasant 71-year-old male that presents to clinic today For evaluation of his bunion pain as well as ball the foot pain to the right foot. He reports that his shoes have been getting old and he has been noticing more discomfort. He reports that he does have a hard time finding shoes because his bunion makes his foot so wide. He denies any history of trauma or injury. Social History Description Last Updated Current smoker 11/06/2022 Last Documented On 3 8:42AM ; [facility] Smoking Status Unknown Procedures and Surgical History Includes: Procedures from this encounter Procedures Code Diagnosis Performing Provider Service L ocation Service Date intervention and counseling on cessation of tobacco use 4000F Last Documented On 3 1:45PM ; [facility] use of tobacco assessment performed 1000F Last Documented On 3 8:41AM ; [facility] review of medications documented 1160F Last Documented On 3 8:41AM ; [facility] encouragement to exercise Last Documented On 3 8:41AM ; [facility] Clinical summary provided to patient Last Documented On 3 8:41AM ; [facility] Medical History Includes: Medical History addressed during this encounter Description Last Updated Pain/condition occurs when weight-bearin g 07/10/2022 Last Documented On 3 1:44PM ; [facility] Family History Includes: Family History addressed during [...] Diagnosis CHECK UP ALEXEI DA SILVA DPM [facility] 3 1:35PM 1:53PM Bunion Right,Acquire d Deformity of Toe - Hammer Toe,Arthralgi a - Right Foot Insurance Includes: Active Insurance Policies Plan Name Member ID Group # Subscriber Relationship Effect elia Dates 1 - [employer] [id number] PEPITO MONGE Self Clinical Notes Includes: Clinical Notes from this encounter No Clinical Notes Recorded
--- OUTSIDE RECORDS SUMMARY | 2025-01-06 00:44 | XMS_ITS | Clinical Summary ---
Author Organization [facility] Address [address] [place] [address] Phone Care Team Providers Care Hay Baler Name Role Phone REMA FERRARI Primary Care Provider Reason for Visit and Chief Complaint The Chief Complaint is: Ingrown F/U Plan of Treatment Healing well. No further care needed RTC PRN - Last Documented On 07/24/2022 1:33PM ; [facility] Instructions to patient Intervention and counseling on cessation of tobacco use Last Documented On 2 1:00PM ; [facility] Assessments Includes: Assessments from this encounter Findings - [L60.0 - Ingrowing nail] Ingrowing nail - Last Documented On 07/24/2022 1:33PM ; [facility] - [M79.674 - Pain in right toe(s)] Pain in right toe - Last Documented On 07/24/2022 1:33PM ; [facility] Instructions Includes: Instructions from this encounter Instructions to patient Intervention and counseling on cessation of tobacco use Last Documented On 2 1:00PM ; [facility] Medical Equipment - Implanted Devices Includes: Current Devices No Medical Equipment Recorded Medications Includes: Medications discussed during this encounter and other current Medications Current Medications (continue as prescribed) Testosterone 30 MG/ACT Transdermal Solution 11/12/2022 Provider: GRECIA FERRARI Diagnosis: Last Documented On 3 11:13AM By Zahida RUIZ ; [facility] Atorvastatin Calcium 20 MG Oral Tablet 11/11/2022 Pr ovider: GRECIA FERRARI Diagnosis: Last Documented On 3 11:13AM By Zahida RUIZ ; [facility] Oxybutynin Chloride ER 10 MG Oral Tablet Extended Release 24 Hour 11/04/2022 Provider: Diagnosis: Last Documented On 1:43PM By Zahida RUIZ ; [facility] ALPRAZolam 0.5 MG Oral Tablet 07/13/2022 Provider: GRECIA FERRARI Diagnosis: Last Documented On 07/24/2022 12:59PM By Johnny RUIZ ; [facility] HYDROcodone-Acetaminophen 7.5-325 MG Oral Tablet 07/13 Provider: GRECIA FERRARI Diagnosis: Last Documented On 07/24/2022 12:59PM By Johnny RUIZ ; [facility] Testosterone 30 MG/ACT Transdermal Solution 07/12/2022 Provider: GRECIA FERRARI Diagnosis: Last Documented On 07/24/2022 12:59PM By Johnny RUIZ ; [facility] Diclofenac Sodium 75 MG Oral Tablet Delayed Release 07/09/2022 Provider: GRECIA FERRARI Diagnosis: Last Documented On 07/24/2022 12:59PM By Johnny RUIZ ; [facility] traZODone HCl 50 MG Oral Tablet 06/29/2022 Provider: GRECIA FERRARI Diagnosis: Last Documented On 07/24/2022 12:59PM By Johnny RUIZ ; [facility] Medications Administered Includes: Administered Medications from this encounter No Administered Medications Recorded Vital Signs Includes: Vital Signs from this encounter Vital Name 07/24/2022 01:00P Blood Pressure Sitting L 126/80 BP Cuff Size Large Pulse Rate-Sitting (bpm) 21 Respiration Rate (breaths/min) 21 Temp-Tympanic (F) 96.4 Oxygen Saturation (%) 97 Last Documented: On 07/24/2022 1:00PM ; [facility] Results Includes: Results discussed during this encounter No Results Recorded For Specified Dates History of Present Illness Includes: History of Present Illness from this encounter VERONICA MONGE is a 71 year old male. - Allergy list reviewed - Allergy list reviewed - Problem list reviewed - Medication reconciliation performed - Medication list reviewed - Sharp pain - Stabbing - Pain lasts for hours - Pain is shooting - Foot or ankle problem is new - Right foot pain dorsal aspect over the forefoot pain/condition location: toe pain/condition started gradually - Pain/condition started months ago Patient is a pleasant 71-year-old male that presents to clinic today for f/u evaluation after partial matrixectomy to the right great toe medial border. He reports no pain and it is doing well. Social History Description Last Updated Tobacco non-user 07/24/2022 Last Documented On 2 1:33PM ; [facility] Smoking Status Unknown Procedures and Surgical History Includes: Procedures from this encounter Procedures Code Diagnosis Performing Provider Service L ocation Service Date intervention and counseling on cessation of tobacco use 4000F Last Documented On 2 1:00PM ; [facility] use of tobacco assessment performed 1000F Last Documented On 2 1:00PM ; [facility] patient screened for future fall risk: documentation of any fall with injury in past year 1100F Last Documented On 2 1:00PM ; [facility] review of medications documented 1160F Last Documented On 2 1:32PM ; [facility] encouragement to exercise Last Documented On 2 1:32PM ; [facility] Clinical summary provided to patient Last Documented On 2 1:32PM ; [facility] Medical History Includes: Medical History addressed during this encounter Description Last Updated Pain/condition occurs when weight-bearin g 07/10/2022 Last Documented On 2 12:59PM ; [facility] Family History Includes: Family History addressed [...] Diagnosis CHECK UP ALEXEI DA SILVA DPM [facility] 2 12:46PM 12:59PM Ingrowing Nail,Limb Pain Right Toe Insurance Includes: Active Insurance Policies Plan Name Member ID Group # Subscriber Relationship Effect elia Dates 1 - [employer] [id number] PEPITO MONGE Self Clinical Notes Includes: Clinical Notes from this encounter No Clinical Notes Recorded
--- OUTSIDE RECORDS SUMMARY | 2025-01-06 00:44 | XMS_ITS | Clinical Summary ---
Author Organization [facility] Address [address] [place] [address] Phone Care Team Providers Care Rn Liaison Name Role Phone REMA FERRARI Primary Care Provider Reason for Visit and Chief Complaint The Chief Complaint is: INGROWN TOENAIL ON BIG TOE, RIGHT FOOT Plan of Treatment Treatment options reviewed with the patient related to condition/diagnosis. Discussed advantages and disadvantages as well as risks/potential complications related to nail surgery. Risk of recurrence explained. All questions answered, informed consent reviewed and pt agrees to proceed. PROCEDURE: [id number] hallux medial border Local infiltration was given consisting of 6 cc of a 1:1 mixture of 0.5% marcaine plain and 1% lidocaine plain Betadine prep was preformed to the affected toe followed by proper sterile draping. After confirming full anesthetic effect to the proper site, the nail fold was released from the medial border of the toe. An croatian anvil was used to initiate the linear splitting of the nail border and completed with a #62 blade. The hemostat was used to completely resect the offending nail border. Curettage was performed to the nail bed and exposed nail matrix. At that time, 3 - 30 second applications of Phenol was applied to the exposed nail matrix using cotton tip applicators. The site was lightly irrigated and a moist sterile dressing was applied. Pt tolerated procedure well with no complications encountered. Written instructions have been given and reviewed with pt regarding after care. Follow up in 2 weeks - Last Documented On 07/10/2022 10:06AM ; [facility] Assessments Includes: Assessments from this encounter Findings - [L60.0 - Ingrowing nail] Ingrowing nail - Last Documented On 07/10/2022 10:06AM ; [facility] - [L03.031 - Cellulitis of right toe] Paronychia - Last Documented On 07/10/2022 10:06AM ; [facility] - [M79.674 - Pain in right toe(s)] Pain in right toe - Last Documented On 07/10/2022 10:06AM ; [facility] Medical Equipment - Implanted Devices Includes: Current Devices No Medical Equipment Recorded Medications Includes: Medications discussed during this encounter and other current Medications Current Medications (continue as prescribed) Testosterone 30 MG/ACT Transdermal Solution 11/12/2022 Provider: GRECIA FERRARI Diagnosis: Last Documented On 3 11:13AM By Zahida RUIZ ; [facility] Atorvastatin Calcium 20 MG Oral Tablet 11/11/2022 Pr ovider: GRECIA FERRARI Diagnosis: Last Documented On 3 11:13AM By Zahida RUIZ ; [facility] Oxybutynin Chloride ER 10 MG Oral Tablet Extended Release 24 Hour 11/04/2022 Provider: Diagnosis: Last Documented On 3 1:43PM By Zahida RUIZ ; [facility] ALPRAZolam 0.5 MG Oral Tablet 07/13/2022 Provider: GRECIA FERRARI Diagnosis: Last Documented On 07/24/2022 12:59PM By Johnny RUIZ ; [facility] HYDROcodone-Acetaminophen 7.5-325 MG Oral Tablet 07/13 Provider: GRECIA FERRARI Diagnosis: Last Documented On 07/24/2022 12:59PM By Johnny RUIZ ; [facility] Testosterone 30 MG/ACT Transdermal Solution 07/12/2022 Provider: GRECIA FERRARI Diagnosis: Last Documented On 07/24/2022 12:59PM By Johnny RUIZ ; [facility] Diclofenac Sodium 75 MG Oral Tablet Delayed Release 07/09/2022 Provider: GRECIA FERRARI Diagnosis: Last Documented On 07/24/2022 12:59PM By Johnny RUIZ ; [facility] traZODone HCl 50 MG Oral Tablet 06/29/2022 Provider: GRECIA FERRARI Diagnosis: Last Documented On 07/24/2022 12:59PM By Johnny RUIZ ; [facility] Medications Administered Includes: Administered Medications from this encounter No Administered Medications Recorded Vital Signs Includes: Vital Signs from this encounter Vital Name 07/10/2022 08:43A Blood Pressure Sitting L 120/80 Pulse Rate-Sitting (bpm) 65 Temp-Tympanic (F) 96.1 Weight (lb) 187 Oxygen Saturation (%) 95 Last Documented: On 07/10/2022 8:44AM ; [facility] Results Includes: Results discussed during this encounter No Results Recorded For Specified Dates History of Present Illness Includes: History of Present Illness from this encounter VERONICA MONGE is a 71 year old male. - Allergy list reviewed - Problem list reviewed - Medication reconciliation performed - Sharp pain - Stabbing - Pain lasts for hours - Pain is shooting - Foot or ankle problem is new - Right foot pain dorsal aspect over the forefoot pain/condition location: toe pain/condition started gradually - Pain/condition started months ago Patient is a pleasant 71-year-old male that presents to clinic today for evaluation of an ingrown toenail to the right great toe medial border. He reports that he thinks he got some of it out and that did stop it from having pus. He has been soaking it in Epson salts and warm water which has helped with the pain but he still very tender. Social History Description Last Updated Not a job-related injury 07/10/2022 Last Documented On 2 10:06AM ; [facility] Smoking Status Unknown Procedures and Surgical History Includes: Procedures from this encounter Procedures Code Diagnosis Performing Provider Service L ocation Service Date use of tobacco assessment performed 1000F Last Documented On 2 10:05AM ; [facility] review of medications documented 1160F Last Documented On 2 10:05AM ; [facility] encouragement to exercise Last Documented On 2 10:05AM ; [facility] Clinical summary provided to patient Last Documented On 2 10:05AM ; [facility] Medical History Includes: Medical History addressed during this encounter Description Last Updated Pain/condition occurs when weight-bearin g 07/10/2022 Last Documented On 2 10:06AM ; [facility] Family History Includes: Family History addressed during this encounter No Family History Recorded Review of Systems Includes: Review of Systems from this encounter No Review of Systems Recorded Mental Status Includes: Mental Status from this encounter No Mental Status Recorded Functional Status Includes: Functional Status from this encounter No Functional Status Recorded Physical Exam Includes: Physical Exam from this encounter Allergies Includes: Active Allergies No Known Allergies Encounters Encounter Provider Location Date Check-In Time Check-Out Time Diagnosis PODIATRY CONSULTATION- ESTABLISHED PATIENT ALEXEI DA SILVA DPM [facility] 07/10/20 22 8:34AM 9:13AM Ingrowing Nail,Limb Pain Right Toe,Paronychi a Insurance Includes: Active Insurance Policies Plan Name Member ID Group # Subscriber Relationship Effect elia Dates 1 - [employer] [id number] PEPITO MONGE Self Clinical Notes Includes: Clinical Notes from this encounter No Clinical Notes Recorded
--- OUTSIDE RECORDS SUMMARY | 2025-01-06 00:44 | XMS_ITS | Clinical Summary ---
Author Organization [facility] Address [address] [place] [address] Phone Care Team Providers Care Research Soil Scientist Name Role Phone REMA FERRARI Primary Care Provider Reason for Visit and Chief Complaint PODIATRY CONSULTATION- ESTABLISHED PATIENT Plan of Treatment No Plan of Treatment Recorded Assessments Includes: Assessments from this encounter No Assessments Recorded Medical Equipment - Implanted Devices Includes: Current Devices No Medical Equipment Recorded Medications Includes: Medications discussed during this encounter and other current Medications Current Medications (continue as prescribed) Testosterone 30 MG/ACT Transdermal Solution 11/12/2022 Provider: GRECIA FERRARI Diagnosis: Last Documented On 3 11:13AM By Zahida RUIZ ; [facility] Atorvastatin Calcium 20 MG Oral Tablet 11/11/2022 Pr ovider: GRECIA FERRARI Diagnosis: Last Documented On 3 11:13AM By Zahida RUIZ ; [facility] Oxybutynin Chloride ER 10 MG Oral Tablet Extended Release 24 Hour 11/04/2022 Provider: Diagnosis: Last Documented On 3 1:43PM By Zahida RUIZ ; [facility] ALPRAZolam 0.5 MG Oral Tablet 07/13/2022 Provider: GRECIA FERRARI Diagnosis: Last Documented On 07/24/2022 12:59PM By Johnny RUIZ ; [facility] HYDROcodone-Acetaminophen 7.5-325 MG Oral Tablet 07/13 Provider: GRECIA FERRARI Diagnosis: Last Documented On 07/24/2022 12:59PM By Johnny RUIZ ; [facility] Testosterone 30 MG/ACT Transdermal Solution 07/12/2022 Provider: GRECIA FERRARI Diagnosis: Last Documented On 07/24/2022 12:59PM By Johnny RUIZ ; [facility] Diclofenac Sodium 75 MG Oral Tablet Delayed Release 07/09/2022 Provider: GRECIA FERRARI Diagnosis: Last Documented On 07/24/2022 12:59PM By Johnny RUIZ ; [facility] traZODone HCl 50 MG Oral Tablet 06/29/2022 Provider: GRECIA FERRARI Diagnosis: Last Documented On 07/24/2022 12:59PM By Johnny RUIZ ; [facility] Medications Administered Includes: Administered Medications from this encounter No Administered Medications Recorded Results Includes: Results discussed during this encounter No Results Recorded For Specified Dates History of Present Illness Includes: History of Present Illness from this encounter No History of Present Illness Recorded Social History No Social History Recorded - Smoking Status Unknown Medical History Includes: Medical History addressed during this encounter No Medical History Recorded Family History Includes: Family History addressed during this encounter No Family History Recorded Review of Systems Includes: Review of Systems from this encounter No Review of Systems Recorded Mental Status Includes: Mental Status from this encounter No Mental Status Recorded Functional Status Includes: Functional Status from this encounter No Functional Status Recorded Physical Exam Includes: Physical Exam from this encounter No Physical Exam Recorded Allergies Includes: Active Allergies No Known Allergies Insurance Includes: Active Insurance Policies Plan Name Member ID Group # Subscriber Relationship Effect elia Dates 1 - [facility] [id number] PEPITO MONGE Self Clinical Notes Includes: Clinical Notes from this encounter No Clinical Notes Recorded
[2025-01-06 13:32] VITALS: BP 119/86; PULSE 82; RESP 18; TEMP 36; O2SAT 98; BMI 29.0
--- NOTE | 2025-01-06 13:40 | P.PNAN_ITS ---
Anes - Initial Pre Proc Eval Procedure: Operation Date: 01/06/25 14:00 Proposed Procedures p Esophagogastroduodenoscopy - Asim Martinez MD Date/Time: 01/06/25 13:40 Surgeon: Asim Martinez MD Pre Op Diagnosis: GERD,Early satiety,Abdominal distension Patient Data Age: 74 Gender: M Height: 1.73 m Weight: 86.8 kg Last Vital Signs Temp 36.0 C L 01/06/25 13:32 Pulse 82 01/06/25 13:32 Resp 18 01/06/25 13:32 BP 119/86 01/06/25 13:32 Pulse Ox 98 01/06/25 13:32 O2 Del Method Room Air 01/06/25 13:32 Allergies Allergy/AdvReac Type Severity Reaction Status Date / Time No Known Allergies Allergy Verified 01/06/25 13:30 Home Medications ?Medication ?Instructions ?Recorded ?Confirmed ?Type Balance Of Nature 6 tab-cap PO DAILY 12/12/21 01/06/25 History alprazolam 0.5 mg tablet 0.5 mg PO TID PRN Anxiety 12/12/21 12/30/24 History diclofenac sodium 75 mg 75 mg PO BID 12/12/21 01/06/25 History tablet,delayed release hydrocodone 7.5 mg-acetaminophen 1 tablet PO Q6H PRN pain #12 tabs 12/21/21 12/30/24 Rx 325 mg tablet Metamucil 2 gummy PO BID 08/13/23 01/06/25 History atorvastatin 40 mg tablet 40 mg PO DAILY 08/13/23 01/06/25 History carvedilol 3.125 mg tablet 3.125 mg PO BID 08/13/23 01/06/25 History nitroglycerin 0.4 mg sublingual 0.4 mg sublingual DIRECTED 08/13/23 12/30/24 History tablet oxybutynin chloride 10 mg 10 mg PO DAILY 08/13/23 01/06/25 History tablet,extended release 24 hr sacubitril 24 mg-valsartan 26 mg 1 tablet PO BID 08/13/23 01/06/25 History tablet (Entresto) spironolactone 25 mg tablet 12.5 mg PO DAILY 08/13/23 01/06/25 History lactulose 20 gram/30 mL oral 20 g (30 mL) PO BID #3,000 mL 10/29/24 01/06/25 Rx solution pantoprazole 40 mg tablet,delayed 40 mg PO BID #60 tabs 10/29/24 01/06/25 Rx release sildenafil 100 mg tablet 100 mg PO DAILY PRN sexual activity 10/29/24 12/30/24 History testosterone 30 mg/actuation (1.5 2 pump topical DAILY 10/29/24 01/06/25 History mL) transderm solution metered pump trazodone 50 mg tablet 50 mg PO QHS PRN insomnia 10/29/24 12/30/24 History Patient hx anesthesia problems: none Family hx anesthesia problems: none Results Review: All pre-operative results and documents have been reviewed as part of the pre- operative evaluation. [facility] Past Medical History Medical History Overweight Anxiety Chronic back pain Smoker Marijuana smoker Surgical History Surgical History H/O lumbosacral spine surgery History of total hip arthroplasty Social History Social History Smoking packs per day: 1 Smoking cigarettes per day: 20.0 Years smoked: 53 Smoking pack-years: 53.00 Smoking status: Former smoker Tobacco type: cigarettes Second hand tobacco smoke exposure: Yes Alcohol intake: current Drinks per week: 10 Alcohol use details: BEERS Substance use: current Substance use type: marijuana Other substance usage details: SMOKES AND GUMMIES Last use: 12/20/21 Living arrangements: with family Spiritual care concerns: No Anes - Eval Final PreProcedure Day of Procedure 01/06/25 13:40 Patient weight: overweight Heart: regular rate and rhythm Lungs: clear to auscultation Airway: Mallampati scale class II Neurological: alert and oriented Last oral intake: >/= 8 hours ASA classification: III Emergent: no Anesthetic plan: proceed Anesthesia type and monitoring: general GIVS and standard monitoring Results Review: All pre-operative results and documents have been reviewed as part of the pre- operative evaluation. Informed Consent: The patient's anesthetic plan and its attendant risks and benefits were discussed with the patient/family/POA. Questions were solicited and answers provided to the satisfaction of the patient/family/POA.
[2025-01-06] MEDS: LACTATED RINGERS 1,000 ML 150 ML IV CONT (13:41)
--- NOTE | 2025-01-06 14:50 | PM.HPGS ---
History of Present Illness History of Present Illness Consent: Risks, benefits, and alternatives have been discussed and questions answered. Patient agrees to proceed with procedure. Chief complaint: GERD,Early satiety,Abdominal distension Narrative: Terry Cherry is a 74 year old male here for first egd, c/o bloating and early satiety, never had GES Review of Systems Review of Systems: All systems reviewed & are unremarkable except as noted in HPI and below PMFSH Past Medical History Medical History Overweight Anxiety Chronic back pain Smoker Marijuana smoker Surgical History Surgical History H/O lumbosacral spine surgery History of total hip arthroplasty Social History Social History Smoking packs per day: 1 Smoking cigarettes per day: 20.0 Years smoked: 53 Smoking pack-years: 53.00 Smoking status: Former smoker Tobacco type: cigarettes Second hand tobacco smoke exposure: Yes Alcohol intake: current Drinks per week: 10 Alcohol use details: BEERS Substance use: current Substance use type: marijuana Other substance usage details: SMOKES AND GUMMIES Last use: 12/20/21 Living arrangements: with family Spiritual care concerns: No Meds Home Medications and Allergies Home Medications ?Medication ?Instructions ?Recorded ?Confirmed ?Type Balance Of Nature 6 tab-cap PO DAILY 12/12/21 01/06/25 History alprazolam 0.5 mg tablet 0.5 mg PO TID PRN Anxiety 12/12/21 12/30/24 History diclofenac sodium 75 mg 75 mg PO BID 12/12/21 01/06/25 History tablet,delayed release hydrocodone 7.5 mg-acetaminophen 1 tablet PO Q6H PRN pain #12 tabs 12/21/21 12/30/24 Rx 325 mg tablet Metamucil 2 gummy PO BID 08/13/23 01/06/25 History atorvastatin 40 mg tablet 40 mg PO DAILY 08/13/23 01/06/25 History carvedilol 3.125 mg tablet 3.125 mg PO BID 08/13/23 01/06/25 History nitroglycerin 0.4 mg sublingual 0.4 mg sublingual DIRECTED 08/13/23 12/30/24 History tablet oxybutynin chloride 10 mg 10 mg PO DAILY 08/13/23 01/06/25 History tablet,extended release 24 hr sacubitril 24 mg-valsartan 26 mg 1 tablet PO BID 08/13/23 01/06/25 History tablet (Entresto) spironolactone 25 mg tablet 12.5 mg PO DAILY 08/13/23 01/06/25 History lactulose 20 gram/30 mL oral 20 g (30 mL) PO BID #3,000 mL 10/29/24 01/06/25 Rx solution pantoprazole 40 mg tablet,delayed 40 mg PO BID #60 tabs 10/29/24 01/06/25 Rx release sildenafil 100 mg tablet 100 mg PO DAILY PRN sexual activity 10/29/24 12/30/24 History testosterone 30 mg/actuation (1.5 2 pump topical DAILY 10/29/24 01/06/25 History mL) transderm solution metered pump trazodone 50 mg tablet 50 mg PO QHS PRN insomnia 10/29/24 12/30/24 History Allergies Allergy/AdvReac Type Severity Reaction Status Date / Time No Known Allergies Allergy Verified 01/06/25 13:30 Vital Signs Vital Signs - 24 hr 01/06/25 13:32 Temperature 96.8 F L Pulse Rate 82 Respiratory Rate 18 Blood Pressure 119/86 Pulse Oximetry 98 Oxygen Delivery Room Air Exam Const: General: comfortable and no acute distress HENMT: Face/Nose/Sinus: Normal nares present Eyes: General: appearance normal, both eyes and all related structures Neck: Neck: no JVD Resp: Auscultation: clear to auscultation bilaterally Cardio: Rate: regular rate Rhythm: regular rhythm GI: Inspection: non-distended GI Palp: Yes Soft to palpation Skin: General skin exam: normal color Neuro: Speech: normal speech Extrem: General: normal to inspection Psych: Mental Status: mental status grossly normal Assessment and Plan Assessment and plan (1) Bloating: Code(s): R14.0 - Abdominal distension (gaseous) Status: Acute Assessment and Plan: egd with bx if negative then consider GES as outpatient to assess for dysmotility (2) Early satiety: Code(s): R68.81 - Early satiety Status: Acute
[2025-01-06 15:04] VITALS: BP 116/72; PULSE 87; RESP 22; O2SAT 97
[2025-01-06 15:14] VITALS: BP 114/72; PULSE 82; RESP 19; O2SAT 94
[2025-01-06 15:24] VITALS: BP 110/72; PULSE 78; RESP 20; O2SAT 95
== END 2025-01-06 15:28 | disposition home or self-care (01) ==
PROVIDERS: PCP Internal Medicine; Referring Provider Nurse Practitioner; Visit Provider Internal Medicine Gastroenterology
PROC: 0DJ08ZZ Inspection of Upper Intestinal Tract, Via Natural or Artificial Opening Endoscopic (ICD-10-PCS; CPT 43239; principal; 2025-01-06 14:00)
DX: K21.00 Gastro-esophageal reflux disease with esophagitis, without bleeding (principal); K29.70 Gastritis, unspecified, without bleeding; K44.9 Diaphragmatic hernia without obstruction or gangrene; F41.9 Anxiety disorder, unspecified; G89.29 Other chronic pain; M54.9 Dorsalgia, unspecified; F12.90 Cannabis use, unspecified, uncomplicated; Z79.891 Long term (current) use of opiate analgesic; Z98.890 Other specified postprocedural states; Z98.1 Arthrodesis status; Z87.891 Personal history of nicotine dependence
CPT/HCPCS: 43239; 88305; J2003; J2704; J7120

== ENCOUNTER 2025-02-04 09:57 | Outpatient (CLI) | payer OTHER, SELFPAY ==
--- NOTE | ~2025-02-04 | NM_ITS ---
EXAM: NM gastric emptying study DATE: 02/04/2025 14:40 INDICATION: Abdominal distention TECHNIQUE: A gastric emptying study was performed using the methodology of Steve LAUGHLIN, et al. J Nucl Med 2007; 48:568-572. The patient was given a meal consisting of 2 scrambled eggs labeled with 0.935 mCi Tc-99m sulfur colloid, 2 slices of toast, two packages of jam, and approximately 120 mL of water . Simultaneous anterior and posterior 1-min images of the abdomen were obtained with the patient supi ne at multiple time points over a total period of 4 hours. The geometric mean of anterior and posteri or views was determined, and the percentage retention was calculated for each time point. COMPARISON: None. FINDINGS: Gastric retention of the radiotracer-labeled meal was 51%, 22%, and 2% at the 1-hour, 2-hour, and 4-h our time points, respectively. With this technique, apparent rapid gastric emptying is suggested by < 30% gastric retention at 1 hour. Delayed gastric emptying is defined by gastric retention of >90% at 1 hour, >60% retention at 2 hours, or >10% retention at 4 hours. IMPRESSION: 1. Normal gastric emptying. Reviewed, dictated and finalized at location B. IMPRESSION: 1. Normal gastric emptying.
--- OUTSIDE RECORDS SUMMARY | 2025-02-04 10:36 | XMS_ITS | Clinical Summary ---
Author Organization [facility] Address [address] [place] [address] Phone Care Team Providers Care Furniture Painter Name Role Phone REMA FERRARI Primary Care [...] reviewed and pt agrees to proceed. PROCEDURE: [id number] hallux medial border Local infiltration was given consisting of 6 cc of a 1:1 mixture of 0.5% marcaine plain and 1% lidocaine plain Betadine prep was preformed to the affected toe followed by proper sterile draping. After confirming full anesthetic effect to the proper site, the nail fold was released from the medial border of the toe. An panamanian anvil was used to initiate the linear [...] - Last Documented On 07/10/2022 10:06AM ; [facility] Assessments Includes: Assessments from this encounter Findings - [L60.0 - Ingrowing nail] Ingrowing nail - Last Documented On 07/10/2022 10:06AM ; [facility] - [L03.031 - Cellulitis of right toe] Paronychia - Last Documented On 07/10/2022 10:06AM ; [facility] - [M79.674 - Pain in right toe(s)] Pain in right toe - Last Documented On 07/10/2022 10:06AM ; [facility] Medical Equipment - Implanted Devices Includes: Current Devices No Medical Equipment Recorded Medications Includes: Medications discussed during this encounter and other current Medications Current Medications (continue as prescribed) Testosterone 30 MG/ACT Transdermal Solution 11/12/2022 Provider: GRECIA FERRARI Diagnosis: Last Documented On 3 11:13AM By Zahida RUIZ ; [facility] Atorvastatin Calcium 20 MG Oral Tablet 11/11/2022 Pr ovider: GRECIA FERRARI Diagnosis: Last Documented On 3 11:13AM By Zahida RUIZ ; [facility] Oxybutynin Chloride ER 10 MG Oral Tablet Extended Release 24 Hour 11/04/2022 Provider: Diagnosis: Last Documented On 3 1:43PM By Zahida RUIZ ; [facility] ALPRAZolam 0.5 MG Oral Tablet 07/13/2022 Provider: GRECIA FERRARI Diagnosis: Last Documented On 07/24/2022 12:59PM By Johnny RUIZ ; [facility] HYDROcodone-Acetaminophen 7.5-325 MG Oral Tablet 07/13 Provider: GRECIA FERRARI Diagnosis: Last Documented On 07/24/2022 12:59PM By Johnny RUIZ ; [facility] Testosterone 30 MG/ACT Transdermal Solution 07/12/2022 Provider: GRECIA FERRARI Diagnosis: Last Documented On 07/24/2022 12:59PM By Johnny RUIZ ; [facility] Diclofenac Sodium 75 MG Oral Tablet Delayed Release 07/09/2022 Provider: GRECIA FERRARI Diagnosis: Last Documented On 07/24/2022 12:59PM By Johnny RUIZ ; [facility] traZODone HCl 50 MG Oral Tablet 06/29/2022 Provider: GRECIA FERRARI Diagnosis: Last Documented On 07/24/2022 12:59PM By Johnny RUIZ ; [facility] Medications Administered Includes: Administered Medications from this encounter No Administered Medications Recorded Vital Signs Includes: Vital Signs from this encounter Vital Name 07/10/2022 08:43A Blood Pressure Sitting L 120/80 Pulse Rate-Sitting (bpm) 65 Temp-Tympanic (F) 96.1 Weight (lb) 187 Oxygen Saturation (%) 95 Last Documented: On 07/10/2022 8:44AM ; [facility] Results Includes: Results discussed during this encounter [...] 07/10/2022 Last Documented On 2 10:06AM ; [facility] Smoking Status Unknown Procedures and Surgical History Includes: Procedures from this encounter Procedures Code Diagnosis Performing Provider Service L ocation Service Date use of tobacco assessment performed 1000F Last Documented On 2 10:05AM ; [facility] review of medications documented 1160F Last Documented On 2 10:05AM ; [facility] encouragement to exercise Last Documented On 2 10:05AM ; [facility] Clinical summary provided to patient Last Documented On 2 10:05AM ; [facility] Medical History Includes: Medical History addressed during this encounter Description Last Updated Pain/condition occurs when weight-bearin g 07/10/2022 Last Documented On 2 10:06AM ; [facility] Family History Includes: Family [...] CONSULTATION- ESTABLISHED PATIENT ALEXEI DA SILVA DPM [facility] 07/10/20 22 8:34AM 9:13AM Ingrowing Nail,Limb Pain Right Toe,Paronychi a Insurance Includes: Active Insurance Policies Plan Name Member ID Group # Subscriber Relationship Effect elia Dates 1 - [employer] [id number] PEPITO MONGE Self Clinical Notes Includes: Clinical Notes from this encounter No Clinical Notes Recorded
--- OUTSIDE RECORDS SUMMARY | 2025-02-04 10:36 | XMS_ITS ---
Care Plan - [facility] Created on: February 04, 2025 PEPITO MONGE : [id number] Sex: Male Author Organization [facility] Address [address] [address] Phone Care Team Providers Care Fiber Optics Technician Name Role Phone REMA FERRARI Primary Care Provider [phone]
--- OUTSIDE RECORDS SUMMARY | 2025-02-04 10:36 | XMS_ITS | Clinical Summary ---
Author Organization [facility] Address [address] [place] [address] Phone Care Team Providers Care Station Manager Name Role Phone FERRARIREMA A Primary Care [...] - Last Documented On 11/09/2022 8:42AM ; [facility] Patient seen and evaluated. Clinical and radiographic [...] - Last Documented On 11/09/2022 8:42AM ; [facility] Instructions to patient Intervention and counseling on cessation of tobacco use Last Documented On 3 1:45PM ; [facility] Assessments Includes: Assessments from this encounter Findings - [M25.571 - Pain in right ankle and joints of right foot] Arthralgia of right foot - Last Documented On 11/09/2022 8:42AM ; [facility] - [M21.611 - Bunion of right foot] Bunion of the right foot - Last Documented On 11/09/2022 8:42AM ; [facility] - [M20.40 - Other hammer toe(s) (acquired), unspecified foot] Hammer toe - Last Documented On 11/09/2022 8:42AM ; [facility] Instructions Includes: Instructions from this encounter Instructions to patient Intervention and counseling on cessation of tobacco use Last Documented On 3 1:45PM ; [facility] Medical Equipment - Implanted Devices Includes: Current Devices No Medical Equipment Recorded Medications Includes: Medications discussed during this encounter and other current Medications Current Medications (continue as prescribed) Testosterone 30 MG/ACT Transdermal Solution 11/12/2022 Provider: GRECIA FERRARI Diagnosis: Last Documented On 3 11:13AM By Zahida RUIZ ; [facility] Atorvastatin Calcium 20 MG Oral Tablet 11/11/2022 Pr ovider: GRECIA FERRARI Diagnosis: Last Documented On 3 11:13AM By Zahida RUIZ ; [facility] Oxybutynin Chloride ER 10 MG Oral Tablet Extended Release 24 Hour 11/04/2022 Provider: Diagnosis: Last Documented On 3 1:43PM By Zahida RUIZ ; [facility] ALPRAZolam 0.5 MG Oral Tablet 07/13/2022 Provider: GRECIA FERRARI Diagnosis: Last Documented On 07/24/2022 12:59PM By Johnny RUIZ ; [facility] HYDROcodone-Acetaminophen 7.5-325 MG Oral Tablet 07/13 Provider: GRECIA FERRARI Diagnosis: Last Documented On 07/24/2022 12:59PM By Johnny RUIZ ; [facility] Testosterone 30 MG/ACT Transdermal Solution 07/12/2022 Provider: GRECIA FERRARI Diagnosis: Last Documented On 07/24/2022 12:59PM By Johnny RUIZ ; [facility] Diclofenac Sodium 75 MG Oral Tablet Delayed Release 07/09/2022 Provider: GRECIA FERRARI Diagnosis: Last Documented On 07/24/2022 12:59PM By Johnny RUIZ ; [facility] traZODone HCl 50 MG Oral Tablet 06/29/2022 Provider: GRECIA FERRARI Diagnosis: Last Documented On 07/24/2022 12:59PM By Johnny RUIZ ; [facility] Medications Administered Includes: Administered Medications from this encounter No Administered Medications Recorded Vital Signs Includes: Vital Signs from this encounter Vital Name 11/06/2022 01:45P Blood Pressure Sitting R 158/100 Pulse Rate-Sitting (bpm) 87 Respiration Rate (breaths/min) 20 Height (in) 69 Weight (lb) 192 Body Mass Index 28.4 Body Surface Area (m2) 2.0 Oxygen Saturation (%) 95 Last Documented: On 11/06/2022 1:52PM ; [facility] Results Includes: Results discussed during this [...] 11/06/2022 Last Documented On 3 8:42AM ; [facility] Smoking Status Unknown Procedures and Surgical History Includes: Procedures from this encounter Procedures Code Diagnosis Performing Provider Service L ocation Service Date intervention and counseling on cessation of tobacco use 4000F Last Documented On 3 1:45PM ; [facility] use of tobacco assessment performed 1000F Last Documented On 3 8:41AM ; [facility] review of medications documented 1160F Last Documented On 3 8:41AM ; [facility] encouragement to exercise Last Documented On 3 8:41AM ; [facility] Clinical summary provided to patient Last Documented On 3 8:41AM ; [facility] Medical History Includes: Medical History addressed during this encounter Description Last Updated Pain/condition occurs when weight-bearin g 07/10/2022 Last Documented On 3 1:44PM ; [facility] Family History Includes: Family History addressed during [...] Diagnosis CHECK UP ALEXEI DA SILVA DPM [facility] 3 1:35PM 1:53PM Bunion Right,Acquire d Deformity of Toe - Hammer Toe,Arthralgi a - Right Foot Insurance Includes: Active Insurance Policies Plan Name Member ID Group # Subscriber Relationship Effect elia Dates 1 - [employer] [id number] PEPITO MONGE Self Clinical Notes Includes: Clinical Notes from this encounter No Clinical Notes Recorded
--- OUTSIDE RECORDS SUMMARY | 2025-02-04 10:36 | XMS_ITS | Clinical Summary ---
Author Organization [facility] Address [address] [place] [address] Phone Care Team Providers Care Plunger Scoop Operator Name Role Phone REMA FERRARI A Primary [...] - Last Documented On 12/09/2022 10:28AM ; [facility] X-rays were reviewed and patient does reveal [...] - Last Documented On 12/09/2022 10:28AM ; [facility] The patient has been advised of the [...] - Last Documented On 12/09/2022 10:28AM ; [facility] Instructions to patient Intervention and counseling on cessation of tobacco use Last Documented On 3 11:14AM ; [facility] Assessments Includes: Assessments from this encounter Findings - [M25.571 - Pain in right ankle and joints of right foot] Arthralgia of right foot - Last Documented On 12/09/2022 10:28AM ; [facility] - [M21.611 - Bunion of right foot] Bunion of the right foot - Last Documented On 12/09/2022 10:28AM ; [facility] - [M20.40 - Other hammer toe(s) (acquired), unspecified foot] Hammer toe - Last Documented On 12/09/2022 10:28AM ; [facility] Instructions Includes: Instructions from this encounter Instructions to patient Intervention and counseling on cessation of tobacco use Last Documented On 3 11:14AM ; [facility] Medical Equipment - Implanted Devices Includes: Current Devices No Medical Equipment Recorded Medications Includes: Medications discussed during this encounter and other current Medications Current Medications (continue as prescribed) Testosterone 30 MG/ACT Transdermal Solution 11/12/2022 Provider: GRECIA FERRARI Diagnosis: Last Documented On 3 11:13AM By Zahida RUIZ ; [facility] Atorvastatin Calcium 20 MG Oral Tablet 11/11/2022 Pr ovider: GRECIA FERRARI Diagnosis: Last Documented On 3 11:13AM By Zahida RUIZ ; [facility] Oxybutynin Chloride ER 10 MG Oral Tablet Extended Release 24 Hour 11/04/2022 Provider: Diagnosis: Last Documented On 3 1:43PM By Zahida RUIZ ; [facility] ALPRAZolam 0.5 MG Oral Tablet 07/13/2022 Provider: GRECIA FERRARI Diagnosis: Last Documented On 07/24/2022 12:59PM By Johnny RUIZ ; [facility] HYDROcodone-Acetaminophen 7.5-325 MG Oral Tablet 07/13 Provider: GRECIA FERRARI Diagnosis: Last Documented On 07/24/2022 12:59PM By Johnny RUIZ ; [facility] Testosterone 30 MG/ACT Transdermal Solution 07/12/2022 Provider: GRECIA FERRARI Diagnosis: Last Documented On 07/24/2022 12:59PM By Johnny RUIZ ; [facility] Diclofenac Sodium 75 MG Oral Tablet Delayed Release 07/09/2022 Provider: GRECIA FERRARI Diagnosis: Last Documented On 07/24/2022 12:59PM By Johnny RUIZ ; [facility] traZODone HCl 50 MG Oral Tablet 06/29/2022 Provider: GRECIA FERRARI Diagnosis: Last Documented On 07/24/2022 12:59PM By Johnny RUIZ ; [facility] Medications Administered Includes: Administered Medications from this encounter No Administered Medications Recorded Vital Signs Includes: Vital Signs from this encounter Vital Name 12/04/2022 11:14A Blood Pressure Sitting R 138/84 Pulse Rate-Sitting (bpm) 63 Respiration Rate (breaths/min) 20 Height (in) 69 Weight (lb) 198 Body Mass Index 29.2 Body Surface Area 2.1 Oxygen Saturation (%) 95 Last Documented: On 12/04/2022 11:15A M ; [facility] Results Includes: Results discussed during this encounter [...] 11/06/2022 Last Documented On 3 11:13AM ; [facility] Smoking Status Unknown Procedures and Surgical History Includes: Procedures from this encounter Procedures Code Diagnosis Performing Provider Service L ocation Service Date intervention and counseling on cessation of tobacco use 4000F Last Documented On 3 11:14AM ; [facility] use of tobacco assessment performed 1000F Last Documented On 3 10:27AM ; [facility] patient screened for future fall risk: documentation of any fall with injury in past year 1100F Last Documented On 3 11:14AM ; [facility] review of medications documented 1160F Last Documented On 3 10:27AM ; [facility] encouragement to exercise Last Documented On 3 10:27AM ; [facility] Clinical summary provided to patient Last Documented On 3 10:27AM ; [facility] Medical History Includes: Medical History addressed during this encounter Description Last Updated Pain/condition occurs when weight-bearin g 07/10/2022 Last Documented On 3 11:13AM ; [facility] Family History Includes: Family History addressed during [...] Diagnosis CHECK UP ALEXEI DA SILVA DPM [facility] 3 11:02AM 11:23AM Bunion Right,Acquire d Deformity of Toe - Hammer Toe,Arthralgi a - Right Foot Insurance Includes: Active Insurance Policies Plan Name Member ID Group # Subscriber Relationship Effect elia Dates 1 - [employer] [id number] PEPITO MONGE Self Clinical Notes Includes: Clinical Notes from this encounter * Progress note Date Encounter Last Documented by 12/04/2022 CHECK UP Last documented on 12/09/2022; 10:28 AM, ALEXEI DA SILVA DPM; [facility] Chief Complaint The Chief Complaint [...]
--- OUTSIDE RECORDS SUMMARY | 2025-02-04 10:36 | XMS_ITS ---
Author Organization [facility] Address [address] [place] [address] Phone Care Team Providers Care Contract Paralegal Name Role Phone REMA FERRARI Primary Care [...] 12/04/2022 Last Documented On 3 10:28AM ; [facility] Discussed the importance of [...] 11/06/2022 Last Documented On 3 8:42AM ; [facility] Instructions to patient Intervention and counseling on cessation of tobacco use Last Documented On 3 11:14AM ; [facility] Intervention and counseling on cessation of tobacco use Last Documented On 3 1:45PM ; [facility] Intervention and counseling on cessation of tobacco use Last Documented On 2 1:00PM ; [facility] Assessments Includes: Assessments for all patient encounters Findings Encounter Date [M20.40 - Other hammer toe(s ) (acquired), unspecified foot] hammer toe CHECK UP with ALEXEI DA SILVA DPM 12/04/2022 Last Documented On 3 10:28AM ; [facility] Arthralgia of right foot CHECK UP with ALEXEI DA SILVA DPM 12/04/2022 Last Documented On 3 10:28AM ; [facility] Bunion of the right foot CHECK UP with ALEXEI DA SILVA DPM 12/04/2022 Last Documented On 3 10:28AM ; [facility] [M20.40 - Other hammer toe(s ) (acquired), unspecified foot] hammer toe CHECK UP with ALEXEI DA SILVA DPM 11/06/2022 Last Documented On 3 8:42AM ; [facility] Arthralgia of right foot CHECK UP with ALEXEI BASILIOY DPM 11/06/2022 Last Documented On 3 8:42AM ; [facility] Bunion of the right foot CHECK UP with ALEXEI BASILIOY DPM 11/06/2022 Last Documented On 3 8:42AM ; [facility] [M79.674 - Pain in right toe (s)] pain in right toe CHECK UP with ALEXEI BASILIOY DPM 07/24/2022 Last Documented On 2 1:33PM ; [facility] Ingrowing nail CHECK UP with ALEXEI DA SILVA DPM 07/24/2022 Last Documented On 2 1:33PM ; [facility] [L03.031 - Cellulitis of rig ht toe] paronychia PODIATRY CONSULTATION- ESTABLISHED PATIENT with ALEXEI DA SILVA DPM 07/10/2022 Last Documented On 2 10:06AM ; [facility] [M79.674 - Pain in right toe (s)] pain in right toe PODIATRY CONSULTATION- ESTABLISHED PATIENT with ALEXEI BASILIOY DPM 07/10/2022 Last Documented On 2 10:06AM ; [facility] Ingrowing nail PODIATRY CONSULTATIO N- ESTABLISHED PATIENT with ALEXEI BASILIOY DPM 07/10/2022 Last Documented On 2 10:06AM ; [facility] Instructions Includes: Instructions for all patient encounters Instructions to patient Intervention and counseling on cessation of tobacco use Last Documented On 3 11:14AM ; [facility] Intervention and counseling on cessation of tobacco use Last Documented On 3 1:45PM ; [facility] Intervention and counseling on cessation of tobacco use Last Documented On 2 1:00PM ; [facility] Medical Equipment - Implanted Devices Includes: Current and historical Devices No Medical Equipment Recorded Medications Includes: Current and historical Medications Current Medications (continue as prescribed) Testosterone 30 MG/ACT Transdermal Solution 11/12/2022 Provider: GRECIA FERRARI Diagnosis: Last Documented On 3 11:13AM By Zahida RUIZ ; [facility] Atorvastatin Calcium 20 MG Oral Tablet 11/11/2022 Pr ovider: GRECIA FERRARI Diagnosis: Last Documented On 3 11:13AM By Zahida RUIZ ; [facility] Oxybutynin Chloride ER 10 MG Oral Tablet Extended Release 24 Hour 11/04/2022 Provider: Diagnosis: Last Documented On 3 1:43PM By Zahida RUIZ ; [facility] ALPRAZolam 0.5 MG Oral Tablet 07/13/2022 Provider: GRECIA FERRARI Diagnosis: Last Documented On 07/24/2022 12:59PM By Johnny RUIZ ; [facility] HYDROcodone-Acetaminophen 7.5-325 MG Oral Tablet 07/13 Provider: GRECIA FERRARI Diagnosis: Last Documented On 07/24/2022 12:59PM By Johnny RUIZ ; [facility] Testosterone 30 MG/ACT Transdermal Solution 07/12/2022 Provider: GRECIA FERRARI Diagnosis: Last Documented On 07/24/2022 12:59PM By Johnny RUIZ ; [facility] Diclofenac Sodium 75 MG Oral Tablet Delayed Release 07/09/2022 Provider: GRECIA FERRARI Diagnosis: Last Documented On 07/24/2022 12:59PM By Johnny RUIZ ; [facility] traZODone HCl 50 MG Oral Tablet 06/29/2022 Provider: GRECIA FERRARI Diagnosis: Last Documented On 07/24/2022 12:59PM By Johnny RUIZ ; [facility] Medications Administered Includes: Administered Medications in patient's chart No Administered Medications Recorded Results Includes: Results from 02/05/2024 through 02/04/2025 No Results Recorded For Specified Dates History of Present Illness History of Present Illness not supported for this document type No History of Present Illness Recorded Social History Description Last Updated Current smoker 11/06/2022 Last Documented On 3 8:42AM ; [facility] Not a job-related injury 07/10/2022 Last Documented On 2 10:06AM ; [facility] Smoking Status Unknown Medical History Includes: Medical History in patient's chart Description Last Updated Pain/condition occurs when weight-bearin g 07/10/2022 Last Documented On 2 10:06AM ; [facility] Family History Includes: Family [...] Subscriber Relationship Effect elia Dates 1 - [facility] [id number] PEPITO MONGE Self Clinical Notes Includes: Signed Clinical Notes starting from 11/16/2022 No Clinical Notes Recorded
--- OUTSIDE RECORDS SUMMARY | 2025-02-04 10:36 | XMS_ITS | Clinical Summary ---
Author Organization [facility] Address [address] [place] [address] Phone Care Team Providers Care Oracle Hrms Developer Name Role Phone REMA FERRARI Primary Care [...] On 3 11:13AM By Zahida RUIZ ; [facility] Atorvastatin Calcium 20 MG Oral Tablet 11/11/2022 Pr ovider: GRECIA FERRARI Diagnosis: Last Documented On 3 11:13AM By Zahida RUIZ ; [facility] Oxybutynin Chloride ER 10 MG Oral Tablet Extended Release 24 Hour 11/04/2022 Provider: Diagnosis: Last Documented On 3 1:43PM By Zahida RUIZ ; [facility] ALPRAZolam 0.5 MG Oral Tablet 07/13/2022 Provider: GRECIA FERRARI Diagnosis: Last Documented On 07/24/2022 12:59PM By Johnny RUIZ ; [facility] HYDROcodone-Acetaminophen 7.5-325 MG Oral Tablet 07/13 Provider: GRECIA FERRARI Diagnosis: Last Documented On 07/24/2022 12:59PM By Johnny RUIZ ; [facility] Testosterone 30 MG/ACT Transdermal Solution 07/12/2022 Provider: GRECIA FERRARI Diagnosis: Last Documented On 07/24/2022 12:59PM By Johnny RUIZ ; [facility] Diclofenac Sodium 75 MG Oral Tablet Delayed Release 07/09/2022 Provider: GRECIA FERRARI Diagnosis: Last Documented On 07/24/2022 12:59PM By Johnny RUIZ ; [facility] traZODone HCl 50 MG Oral Tablet 06/29/2022 Provider: GRECIA FERRARI Diagnosis: Last Documented On 07/24/2022 12:59PM By Johnny RUIZ ; [facility] Medications Administered Includes: Administered Medications from this [...] Subscriber Relationship Effect elia Dates 1 - [facility] [id number] PEPITO MONGE Self Clinical Notes Includes: Clinical Notes from this encounter No Clinical Notes Recorded
--- OUTSIDE RECORDS SUMMARY | 2025-02-04 10:37 | XMS_ITS | Data Portability ---
Author Organization [facility] [employer], Main Office Address [address] [place] [address] Assessment No assessment recorded. Plan of Treatment Reminders Order Date Submit Date Provider Last Modified By Organization Details Last Modified Time Details Appointments None recorded. Lab PSA, serum or plasma 2024 025 [facility] Outpatient Lab, [address] [place], [address], 5 15:57:46 vitamin B12, serum 2024 025 [facility] Out[facility] Lab, [address] [place], [address], 5 12:44:32 magnesium, serum or plasma 2024 025 [facility], [address] [place], [address], 5 12:00:27 CBC w/ auto diff 2024 025 [facility] Out[facility], [address] [place], [address], 5 11:52:15 CMP, serum or plasma 2024 025 [facility], [address] [place], [address], 5 12:00:18 lipid panel, serum 2024 025 [facility], [address] [place], [address], 5 12:00:22 TSH, serum or plasma 2024 [facility], [address] [place], [address], 5 12:43:51 T4, free, serum 2024 [facility], [address] [place], [address], 5 12:30:34 lipase, serum or plasma 2023 [facility], [address] [place], [address], 4 13:01:11 amylase, serum or plasma 2023 [facility] Lab, [address] [place], [address], 4 13:01:13 vitamin B12, serum 2023 [facility] Lab, [address] [place], [address], 4 13:58:08 magnesium, serum or plasma 2023 [facility] Lab, [address] [place], [address], 4 13:01:07 CBC w/ auto diff 2023 [facility] Lab, [address] [place], [address], 4 12:52:25 CMP, serum or plasma 2023 [facility] Lab, [address] [place], [address], 4 13:01:01 lipid panel, serum 2023 [facility] Out[facility] Lab, [address] [place], [address], 4 13:01:04 TSH, serum or plasma 2023 024 [facility] Lab, [address] [place], [address], 4 13:39:28 T4, free, serum 2023 024 [facility] Out[facility] Lab, [address] [place], [address], 4 13:03:54 lipid panel, serum 2023 024 [facility] Lab, [address] [place], [address], 4 14:29:06 CMP, serum or plasma 2023 024 [facility] Out[facility] Lab, [address] [place], [address], 4 14:29:12 TSH, serum or plasma 2023 024 [facility] Lab, [address] [place], [address], 4 14:53:49 T4, free, serum 2023 024 [facility] Out[facility] Lab, [address] [place], [address], 4 14:39:16 CBC w/ auto diff 2023 024 [facility] Outpatient Lab, [address] [place], [address], 4 14:23:33 PSA, serum or plasma [email or web address] [place] [address] Outpatient Lab, [address] [place], [address], 4 11:41:37 lipid panel, serum 2022 023 [facility] Outpatient Lab, [address] [place], [address], 3 11:10:05 CMP, serum or plasma 2022 023 [facility] Outpatient Lab, [address] [place], [address], 3 11:10:04 TSH, serum or plasma 2022 023 [facility] Lab, [address] [place], [address], 3 11:10:04 T4, free, serum 2022 023 [email or web address] [facility] Out[facility] Lab, [address] [place], [address], 3 09:59:50 CBC w/ auto diff 2022 023 [facility] Lab, [address] [place], [address], 3 11:10:04 vitamin B12, serum 2022 023 [email or web address] [facility] Out[facility], [address] [place], [address], 3 09:59:50 magnesium, serum or plasma 2022 023 [email or web address] [facility] Outpatient Lab, [address] [place], [address], 3 09:59:50 Referral None recorded. Procedures None recorded. Surgeries None recorded. Imaging None recorded. Medication Orders pantoprazol e 40 mg tablet,toya yed release 2023 024 [facility] #[id number], [address] [place] [address], [address], 12:23:07 Patient TargetsNo targets recorded. Patient Instructions Encounter Date Encounter Id Patient Instructions Last Modified By Organization Details Last Modified Time 08/01/2023 [id number] Cardiomyopathy -hyperlipidemia -GERD -chronic obstructive lung disease all clinically stable. Will check blood work in the form of CBC, CMP, lipid, thyroid, B12 and magnesium level. Continue on current Rx follow-up in four months Portions of the record may have been created with voice recognition software. Occasional wrong-word or s ound-a-like substitutions may have occurred due to the inherent limitations of voice recognition software. Read the chart carefully and recognize, using context, where substitutions have occurred. Needs a follow-up colonoscopy up at [facility] for a previous small polyp found by Dr. Ochoa. Next Appt: 4 Months Approximate Date: 11/29/2023 Not available 08/01/2023 11:42:06 12/05/2023 [id number] Follow-up cardiomyopathy, hyperlipidemia, male hypogonadism, GERD and chronic pain syndrome all clinically stable. Check blood work consisting of CBC, CMP, lipid, thyroid and PSA. Follow-up four months Portions of the record may have been created with voice recognition software. Occasional wrong-word or s ound-a-like substitutions may have occurred due to the inherent limitations of voice recognition software. Read the chart carefully and recognize, using context, where substitutions have occurred. [email or web address] Not available 12/05/2023 12:23:27 04/20/2024 [id number] Cardiomyopathy, hyperlipidemia, GERD, chronic pain syndrome and recent history of visual disturbance possible variant of amaurosis fugax. Will continue on current medications. Will check a carotid ultrasound for further evaluation. Instructed patient he should be on an aspirin once daily. Carotid ultrasound for amaurosis fugax Next Appointment: 4 Months Approximate Date: 08/18/2024 Portions of the record may have been created with voice recognition software. Occasional wrong-word or s ound-a-like substitutions may have occurred due to the inherent limitations of voice recognition software. Read the chart carefully and recognize, using context, where substitutions have occurred. [email or web address] Not available 04/20/2024 12:32:07 08/24/2024 [id number] risk assessment* [email or web address] Not availabl e 08/24/2024 11:59:23 Personalized a [facility] Plan and Screening Recommendations Advance Directives - Do you have one? No Advance Directives - Do we have your advance directive on file in your health record? Primary Prevention/Interven tion (prevents or decreases the chance of common diseases from occurring) Smoking Risk: Non Smoker Alcohol Misuse Screening: Negative Weight: Appropriate Overwei ght continue your current weight loss efforts try to lose 5% of your body weight try to lose 10% of your body weight Physical activity: Need more exercise/physical activity Nutrition: Good Average Fall Risk (screened today): Low Vaccines Pneumococcal: Ordered Recommended today Recommended today, but you have declined No further needed Influenza: Ordered Recommended today Chronic Disease Risks Stroke: Low Risk Intermediate Risk I have no recommendations Act leonela diagnosis, Continue current treatment plan Heart Attack: Low risk Intermediate Risk I have no recommendations Act leonela diagnosis, Continue current treatment plan Clogging of the Arteries: Low risk Intermediate Risk I have no recommendations Act leonela diagnosis, Continue current treatment plan Diabetes: Low Risk I have no recommendations Secondary Prevention/Interven tion (detects treatable diseases before they may cause symptoms, disability, or ) Prostate Cancer Screening: Colon Cancer Screening: Colonoscopy Date Screening Last Performed: __2022____ Eye Disease Screening: Dementia Risk: Low I have no recommendations Depression Screening: Negative [email or web address] Not available 08/24/2024 11:35:00 Wellness evaluat ion risk assessment stable. Follow-up for cardiomyopathy, essential hypertension, hyperlipidemia, GERD as well as intermittent abdominal pain in the midepigastric area. Will check blood work consisting of CBC, CMP, lipid, lipase and a CT scan of the abdomen and pelvis. Proceed accordingly. May need upper endoscopy or further diagnostic evaluation pending those results Additional Orders - Directives - Recommendations 1. CT scan of the abdomen and pelvis four intermittent postprandial abdominal pain with contrast. Follow Up: 4 Months Approximate Date: 12/22/2024 Portions of the record may have been created with voice recognition software. Occasional wrong-word or s ound-a-like substitutions may have occurred due to the inherent limitations of voice recognition software. Read the chart carefully and recognize, using context, where substitutions have occurred. [email or web address] Not available 08/24/2024 11:53:12 12/23/2024 [id number] Follow-up cardiomyopathy, essential hypertension, GERD and hyperlipidemia. All clinically stable. Will continue on current medications. Will check blood work consisting of CBC, CMP, lipid, thyroid, PSA,B12 and magnesium.. Is scheduled for an upper endoscopy for dysphagia. Otherwise doing well. Follow-up in six months Follow Up: 6 Months Approximate Date: 06/21/2025 Portions of record are template driven. When necessary additional context will be provided. Additionally some portions have been created with voice recognition software. Occasional wrong-word or s ound-a-like substitutions may have occurred due to the inherent limitations of voice recognition software. Read the chart carefully and recognize, using context, where substitutions may have occurred. Created: Grecia Joy M.D. 12.23.2024 09:39 AM [email or web address] Not available 12/23/2024 10:40:05 Reason for Referral None Reported. Results Created Date Observation Date Name Description Value Unit Range Abnormal Flag Note LastModifiedBy Organization Detail LastModifiedTime 12/05/1912/05/2023 CBC/C OMPLE TE BLD COUNT W/DIF F white blood cells 6.7 x10'3 /uL 4.2-10 .8 Not Available [facility] (Lab) [address] [place], [address], 12/05/2023 14:23:33 12/05/19 24 12/05/2023 CBC/C OMPLE TE BLD COUNT W/DIF F red blood cells 4.89 x10'6 /uL 4.10-5 .80 Not Available [facility] (Lab) [address] [place], [address], 12/05/2023 14:23:33 12/05/19 24 12/05/2023 CBC/C OMPLE TE BLD COUNT W/DIF F hemoglobin 15.1 g/dL 13.2-1 7.0 Not Available [facility] (Lab) [address] [place], [address], 12/05/2023 14:23:33 12/05/19 24 12/05/2023 CBC/C OMPLE TE BLD COUNT W/DIF F hematocrit 45.1 % 39.3-5 0.0 Not Available [facility] (Lab) [address] [place], [address], 12/05/2023 14:23:33 12/05/19 24 12/05/2023 CBC/C OMPLE TE BLD COUNT W/DIF F mean red cell volume 92.2 fL 80.0-9 7.0 Not Available [facility] (Lab) [address] [place], [address], 12/05/2023 14:23:33 12/05/19 24 12/05/2023 CBC/C OMPLE TE BLD COUNT W/DIF F mean red cell hemoglobin 30.9 pg 27.0-3 3.0 Not Available [facility] (Lab) [address] [place], [address], 12/05/2023 14:23:33 12/05/19 24 12/05/2023 CBC/C OMPLE TE BLD COUNT W/DIF F mean RBC HGB concentratio n 33.5 g/dL 31.0-3 6.0 Not Available [facility] (Lab) [address] [place], [address], 12/05/2023 14:23:33 12/05/19 24 12/05/2023 CBC/C OMPLE TE BLD COUNT W/DIF F red cell distribution width 13.3 % 11.8-1 5.5 Not Available [facility] (Lab) [address] [place], [address], 12/05/2023 14:23:33 12/05/19 24 12/05/2023 CBC/C OMPLE TE BLD COUNT W/DIF F platelets 180 x10'3 /uL 150-40 0 Not Available [facility] (Lab) [address] [place], [address], 12/05/2023 14:23:33 12/05/19 24 12/05/2023 CBC/C OMPLE TE BLD COUNT W/DIF F mean platelet volume 11.8 fL 9.0-12 .4 Not Available [facility] (Lab) [address] [place], [address], 12/05/2023 14:23:33 12/05/19 24 12/05/2023 CBC/C OMPLE TE BLD COUNT W/DIF F neutrophils 57.7 % 39.0-7 2.0 Not Available [facility] (Lab) [address] [place], [address], 12/05/2023 14:23:33 12/05/19 24 12/05/2023 CBC/C OMPLE TE BLD COUNT W/DIF F lymphocytes 32.0 % 16.0-4 7.0 Not Available [facility] (Lab) [address] [place], [address], 12/05/2023 14:23:33 12/05/19 24 12/05/2023 CBC/C OMPLE TE BLD COUNT W/DIF F monocytes 6.3 % 5.0-12 .0 Not Available [facility] (Lab) [address] [place], [address], 12/05/2023 14:23:33 12/05/19 24 12/05/2023 CBC/C OMPLE TE BLD COUNT W/DIF F eosinophils 2.6 % 1.0-7. 0 Not Available [facility] (Lab) [address] [place], [address], 12/05/2023 14:23:33 12/05/19 24 12/05/2023 CBC/C OMPLE TE BLD COUNT W/DIF F basophils 0.9 % 0.0-2. 0 Not Available [facility] (Lab) [address] [place], [address], 12/05/2023 14:23:33 12/05/19 24 12/05/2023 CBC/C OMPLE TE BLD COUNT W/DIF F immature granulocytes 0.5 % 0.00-0 .50 Not Available [facility] (Lab) [address] [place], [address], 12/05/2023 14:23:33 12/05/19 24 12/05/2023 CBC/C OMPLE TE BLD COUNT W/DIF F neutrophils, absolute count 3.84 x10'3 /uL 1.5-8. 0 Not Available [facility] (Lab) [address] [place], [address], 12/05/2023 14:23:33 12/05/19 24 12/05/2023 CBC/C OMPLE TE BLD COUNT W/DIF F lymphocytes, absolute count 2.13 x10'3 /uL 1.07-3 .43 Not Available [facility] (Lab) [address] [place], [address], 12/05/2023 14:23:33 12/05/19 24 12/05/2023 CBC/C OMPLE TE BLD COUNT W/DIF F monocytes, absolute count 0.42 x10'3 /uL 0.29-0 .99 Not Available [facility] (Lab) [address] [place], [address], 12/05/2023 14:23:33 12/05/19 24 12/05/2023 CBC/C OMPLE TE BLD COUNT W/DIF F eosinophils, absolute count 0.17 x10'3 /uL 0.02-0 .53 Not Available [facility] (Lab) [address] [place], [address], 12/05/2023 14:23:33 12/05/19 24 12/05/2023 CBC/C OMPLE TE BLD COUNT W/DIF F basophils, absolute count 0.06 x10'3 /uL 0.01-0 .08 Not Available [facility] (Lab) [address] [place], [address], 12/05/2023 14:23:33 12/05/19 24 12/05/2023 CBC/C OMPLE TE BLD COUNT W/DIF F immature granulocytes ,absolute 0.03 x10'3 /uL 0.00-0 .05 Not Available [facility] (Lab) [address] [place], [address], 12/05/2023 14:23:33 12/05/19 24 12/05/2023 CBC/C OMPLE TE BLD COUNT W/DIF F nucleated red blood cells 0.0 % -0 Not Available [facility] (Lab) [address] [place], [address], 12/05/2023 14:23:33 12/05/19 24 12/05/2023 CBC/C OMPLE TE BLD COUNT W/DIF F NRBC# 0.00 x10'3 /uL Not Available [facility] (Lab) [address] [place], [address], 12/05/2023 14:23:33 12/05/19 24 12/05/2023 LIPID PANEL cholesterol 160 mg/dL 140-19 9 [facility] NSUS RECOM MENDA TION FOR RAMA STERO L: ADULT CHILD LOW RISK: <200 <170 BORDE RLINE : <200- 239 ----- HIGH RISK: >240 >200 Not Available [facility] (Lab) [address] [place], [address], 12/05/2023 14:29:06 12/05/19 24 12/05/2023 LIPID PANEL triglyceride s 95 mg/dL 0-150 [facility] NSUS REPOR T RECOM MENDA TION FOR TRIGL YCERI RAVEN: ADULT CHILD LOW RISK: <150 ----- BODER LINE: 150-1 99 ----- HIGH RISK: >200 ----- Not Available [facility] (Lab) [address] [place], [address], 12/05/2023 14:29:06 12/05/19 24 12/05/2023 LIPID PANEL HDL cholesterol 80 mg/dL 40- Not Available [facility] (Lab) [address] [place], [address], 12/05/2023 14:29:06 12/05/19 24 12/05/2023 LIPID PANEL LDL cholesterol, calculated 61 mg/dL 0-130 [facility] NSUS REPOR T RECOM MENDA TIONS FOR LDL: ADULT CHILD LOW RISK <130 <110 (OPTI MAL LDL) <100 ----- BORDE RLINE : 130-1 59 ----- HIGH RISK: >160 >130 A TRIGL YCERI DE RESUL T >400 INVAL IDATE S THE CALCU LATIO N FOR LDL FRACT IONAT ION - THE LDL RESUL T WILL NOT BE REPOR LILIAM. Not Available [facility] (Lab) [address] [place], [address], 12/05/2023 14:29:06 12/05/19 24 12/05/2023 COMPR EHENS LEONELA METAB OLIC PANEL sodium 139 mmol/ L 137-14 5 Not Available [facility] (Lab) [address] [place], [address], 12/05/2023 14:29:12 12/05/19 24 12/05/2023 COMPR EHENS LEONELA METAB OLIC PANEL potassium 4.7 mmol/ L 3.5-5. 1 Not Available [facility] (Lab) [address] [place], [address], 12/05/2023 14:29:12 12/05/19 24 12/05/2023 COMPR EHENS LEONELA METAB OLIC PANEL chloride 106 mmol/ L 98-107 Not Available [facility] (Lab) [address] [place], [address], 12/05/2023 14:29:12 12/05/19 24 12/05/2023 COMPR EHENS LEONELA METAB OLIC PANEL carbon dioxide 28 mmol/ L 22-30 Not Available [facility] (Lab) [address] [place], [address], 12/05/2023 14:29:12 12/05/19 24 12/05/2023 COMPR EHENS LEONELA METAB OLIC PANEL anion gap 9.7 mmol/ L 14-22 low Not Available [facility] (Lab) [address] [place], [address], 12/05/2023 14:29:12 12/05/19 24 12/05/2023 COMPR EHENS LEONELA METAB OLIC PANEL glucose 91 mg/dL 70-99 Not Available [facility] (Lab) [address] [place], [address], 12/05/2023 14:29:12 12/05/19 24 12/05/2023 COMPR EHENS LEONELA METAB OLIC PANEL BUN 22 mg/dL 8-19 high Not Available [facility] (Lab) [address] [place], [address], 12/05/2023 14:29:12 12/05/19 24 12/05/2023 COMPR EHENS LEONELA METAB OLIC PANEL creatinine 1.29 mg/dL 0.66-1 .25 high Not Available [facility] (Lab) [address] [place], [address], 12/05/2023 14:29:12 12/05/19 24 12/05/2023 COMPR EHENS LEONELA METAB OLIC PANEL GFR 54 Refer ence Range : [place] ge GFR Healt hy Adult : >60 mL/mi n/1.7 3 m2 Chron ic Kidne y Disea se: 15-60 mL/mi n/1.7 3 m2 Kidne y Failu re: <15/m L/min /1.73 m2 www.n iddk. nih.g ov The MDRD study equat ion has not been valid ated in child gina <18 years of age; pregn ant women ; the elder ly >85 years of age; or in some racia l or ethni c subgr oups, such as Hispa nics. Outsi de the valid ated kori eters , estim ated GFR is less accur ate, requi ring clini anais judgm ent on a case- by-ca se basis . Clini anais inter preta tion for other races and ages must be made by the clini marcelo. The MDRD study equat ion has not been valid ated for the evalu ation of serum creat inine relat ed to nutri eloy l statu s or medic ation usage . For perso ns <18 years of age, a pedia tric GFR calcu lator is avail able on the [facility] websi te: https ://ww w.kid leah.o rg/pr ofess ional s/kdo qi/gf r_cal culat or Not Available [facility] (Lab) [address] [place], [address], 12/05/2023 14:29:12 12/05/19 24 12/05/2023 COMPR EHENS LEONELA METAB OLIC PANEL alkaline phosphatase 79 U/L 38-126 Not Available [facility] (Lab) [address] [place], [address], 12/05/2023 14:29:12 12/05/19 24 12/05/2023 COMPR EHENS LEONELA METAB OLIC PANEL alanine aminotransfe rase 30 U/L 0-50 Not Available [facility] (Lab) [address] [place], [address], 12/05/2023 14:29:12 12/05/19 24 12/05/2023 COMPR EHENS LEONELA METAB OLIC PANEL aspartate aminotransfe rase 28 U/L 15-46 Not Available [facility] (Lab) [address] [place], [address], 12/05/2023 14:29:12 12/05/19 24 12/05/2023 COMPR EHENS LEONELA METAB OLIC PANEL bilirubin, total 0.40 mg/dL 0.20-1 .30 Not Available [facility] (Lab) [address] [place], [address], 12/05/2023 14:29:12 12/05/19 24 12/05/2023 COMPR EHENS LEONELA METAB OLIC PANEL calcium 9.7 mg/dL 8.4-10 .2 Not Available [facility] (Lab) [address] [place], [address], 12/05/2023 14:29:12 12/05/19 24 12/05/2023 COMPR EHENS LEONELA METAB OLIC PANEL total protein 6.9 g/dL 6.3-8. 2 Not Available [facility] (Lab) [address] [place], [address], 12/05/2023 14:29:12 12/05/19 24 12/05/2023 COMPR EHENS LEONELA METAB OLIC PANEL albumin 4.1 g/dL 3.0-4. 4 Not Available [facility] (Lab) [address] [place], [address], 12/05/2023 14:29:12 12/05/19 24 12/05/2023 COMPR EHENS LEONELA METAB OLIC PANEL globulin 2.8 g/dL 2.6-4. 2 Not Available [facility] (Lab) [address] [place], [address], 12/05/2023 14:29:12 12/05/19 24 12/05/2023 COMPR EHENS LEONELA METAB OLIC PANEL A/G ratio 1.5 ratio 1.0-2. 0 Not Available [facility] (Lab) [address] [place], [address], 12/05/2023 14:29:12 12/05/19 24 12/05/2023 T4 FREE free T4 1.21 NG/dL 0.78-2 .19 Not Available [facility] (Lab) [address] [place], [address], 12/05/2023 14:39:16 12/05/19 24 12/05/2023 TSH thyroid-stim ulating hormone 1.090 uIU/m L 0.465- 4.680 Not Available [facility] (Lab) [address] [place], [address], 12/05/2023 14:53:49 12/05/19 24 12/05/2023 PSA, TOTAL PSA, total 1.82 NG/mL 0.00-4 .00 Not Available [facility] (Lab) [address] [place], [address], 12/05/2023 14:53:52 08/24/20 24 08/24/2024 CBC/C OMPLE TE BLD COUNT W/DIF F white blood cells 8.4 x10'3 /uL 4.2-10 .8 Not Available [facility] (Lab) [address] [place], [address], 08/24/2024 12:52:25 08/24/20 24 08/24/2024 CBC/C OMPLE TE BLD COUNT W/DIF F red blood cells 5.32 x10'6 /uL 4.10-5 .80 Not Available [facility] (Lab) [address] [place], [address], 08/24/2024 12:52:25 08/24/2008/24/2024 CBC/C OMPLE TE BLD COUNT W/DIF F hemoglobin 16.5 g/dL 13.2-1 7.0 Not Available [facility] (Lab) [address] [place], [address], 08/24/2024 12:52:25 08/24/20 24 08/24/2024 CBC/C OMPLE TE BLD COUNT W/DIF F hematocrit 50.1 % 39.3-5 0.0 high Not Available [facility] (Lab) [address] [place], [address], 08/24/2024 12:52:25 08/24/2008/24/2024 CBC/C OMPLE TE BLD COUNT W/DIF F mean red cell volume 94.2 fL 80.0-9 7.0 Not Available [facility] (Lab) [address] [place], [address], 08/24/2024 12:52:25 08/24/2008/24/2024 CBC/C OMPLE TE BLD COUNT W/DIF F mean red cell hemoglobin 31.0 pg 27.0-3 3.0 Not Available [facility] (Lab) [address] [place], [address], 08/24/2024 12:52:25 08/24/2008/24/2024 CBC/C OMPLE TE BLD COUNT W/DIF F mean RBC HGB concentratio n 32.9 g/dL 31.0-3 6.0 Not Available [facility] (Lab) [address] [place], [address], 08/24/2024 12:52:25 08/24/2008/24/2024 CBC/C OMPLE TE BLD COUNT W/DIF F red cell distribution width 13.1 % 11.8-1 5.5 Not Available [facility] (Lab) [address] [place], [address], 08/24/2024 12:52:25 08/24/2008/24/2024 CBC/C OMPLE TE BLD COUNT W/DIF F platelets 201 x10'3 /uL 150-40 0 Not Available [facility] (Lab) [address] [place], [address], 08/24/2024 12:52:25 08/24/2008/24/2024 CBC/C OMPLE TE BLD COUNT W/DIF F mean platelet volume 11.6 fL 9.0-12 .4 Not Available [facility] (Lab) [address] [place], [address], 08/24/2024 12:52:25 08/24/2008/24/2024 CBC/C OMPLE TE BLD COUNT W/DIF F neutrophils 67.7 % 39.0-7 2.0 Not Available [facility] (Lab) [address] [place], [address], 08/24/2024 12:52:25 08/24/2008/24/2024 CBC/C OMPLE TE BLD COUNT W/DIF F lymphocytes 23.9 % 16.0-4 7.0 Not Available [facility] (Lab) [address] [place], [address], 08/24/2024 12:52:25 08/24/2008/24/2024 CBC/C OMPLE TE BLD COUNT W/DIF F monocytes 6.1 % 5.0-12 .0 Not Available [facility] (Lab) [address] [place], [address], 08/24/2024 12:52:25 08/24/2008/24/2024 CBC/C OMPLE TE BLD COUNT W/DIF F eosinophils 1.1 % 1.0-7. 0 Not Available [facility] (Lab) [address] [place], [address], 08/24/2024 12:52:25 08/24/2008/24/2024 CBC/C OMPLE TE BLD COUNT W/DIF F basophils 0.7 % 0.0-2. 0 Not Available [facility] (Lab) [address] [place], [address], 08/24/2024 12:52:25 08/24/2008/24/2024 CBC/C OMPLE TE BLD COUNT W/DIF F immature granulocytes 0.5 % 0.00-0 .50 Not Available [facility] (Lab) [address] [place], [address], 08/24/2024 12:52:25 08/24/2008/24/2024 CBC/C OMPLE TE BLD COUNT W/DIF F neutrophils, absolute count 5.69 x10'3 /uL 1.5-8. 0 Not Available [facility] (Lab) [address] [place], [address], 08/24/2024 12:52:25 08/24/2008/24/2024 CBC/C OMPLE TE BLD COUNT W/DIF F lymphocytes, absolute count 2.01 x10'3 /uL 1.07-3 .43 Not Available [facility] (Lab) [address] [place], [address], 08/24/2024 12:52:25 08/24/2008/24/2024 CBC/C OMPLE TE BLD COUNT W/DIF F monocytes, absolute count 0.51 x10'3 /uL 0.29-0 .99 Not Available [facility] (Lab) [address] [place], [address], 08/24/2024 12:52:25 08/24/20 24 08/24/2024 CBC/C OMPLE TE BLD COUNT W/DIF F eosinophils, absolute count 0.09 x10'3 /uL 0.02-0 .53 Not Available [facility] (Lab) [address] [place], [address], 08/24/2024 12:52:25 08/24/20 24 08/24/2024 CBC/C OMPLE TE BLD COUNT W/DIF F basophils, absolute count 0.06 x10'3 /uL 0.01-0 .08 Not Available [facility] (Lab) [address] [place], [address], 08/24/2024 12:52:25 08/24/20 24 08/24/2024 CBC/C OMPLE TE BLD COUNT W/DIF F immature granulocytes ,absolute 0.04 x10'3 /uL 0.00-0 .05 Not Available [facility] (Lab) [address] [place], [address], 08/24/2024 12:52:25 08/24/20 24 08/24/2024 CBC/C OMPLE TE BLD COUNT W/DIF F nucleated red blood cells 0.0 % -0 Not Available [facility] (Lab) [address] [place], [address], 08/24/2024 12:52:25 08/24/2008/24/2024 CBC/C OMPLE TE BLD COUNT W/DIF F NRBC# 0.00 x10'3 /uL Not Available [facility] (Lab) [address] [place], [address], 08/24/2024 12:52:25 08/24/2008/24/2024 COMPR EHENS LEONELA METAB OLIC PANEL sodium 139 mmol/ L 137-14 5 Not Available [facility] (Lab) [address] [place], [address], 08/24/2024 13:01:01 08/24/20 24 08/24/2024 COMPR EHENS LEONELA METAB OLIC PANEL potassium 4.9 mmol/ L 3.5-5. 1 Not Available [facility] (Lab) [address] [place], [address], 08/24/2024 13:01:01 08/24/20 24 08/24/2024 COMPR EHENS LEONELA METAB OLIC PANEL chloride 103 mmol/ L 98-107 Not Available [facility] (Lab) [address] [place], [address], 08/24/2024 13:01:01 08/24/20 24 08/24/2024 COMPR EHENS LEONELA METAB OLIC PANEL carbon dioxide 27 mmol/ L 22-30 Not Available [facility] (Lab) [address] [place], [address], 08/24/2024 13:01:01 08/24/2008/24/2024 COMPR EHENS LEONELA METAB OLIC PANEL anion gap 13.9 mmol/ L 14-22 low Not Available [facility] (Lab) [address] [place], [address], 08/24/2024 13:01:01 08/24/2008/24/2024 COMPR EHENS LEONELA METAB OLIC PANEL glucose 105 mg/dL 70-99 high Not Available [facility] (Lab) [address] [place], [address], 08/24/2024 13:01:01 08/24/2008/24/2024 COMPR EHENS LEONELA METAB OLIC PANEL BUN 24 mg/dL 8-19 high Not Available [facility] (Lab) [address] [place], [address], 08/24/2024 13:01:01 08/24/2008/24/2024 COMPR EHENS LEONELA METAB OLIC PANEL creatinine 1.52 mg/dL 0.66-1 .25 high Not Available [facility] (Lab) [address] [place], [address], 08/24/2024 13:01:01 08/24/2008/24/2024 COMPR EHENS LEONELA METAB OLIC PANEL GFR 45 Refer ence Range : [place] ge GFR Healt hy Adult : >60 mL/mi n/1.7 3 m2 Chron ic Kidne y Disea se: 15-60 mL/mi n/1.7 3 m2 Kidne y Failu re: <15/m L/min /1.73 m2 www.n iddk. nih.g ov The MDRD study equat ion has not been valid ated in child gina <18 years of age; pregn ant women ; the elder ly >85 years of age; or in some racia l or ethni c subgr oups, such as Hispa nics. Outsi de the valid ated kori eters , estim ated GFR is less accur ate, requi ring clini anais judgm ent on a case- by-ca se basis . Clini anais inter preta tion for other races and ages must be made by the clini marcelo. The MDRD study equat ion has not been valid ated for the evalu ation of serum creat inine relat ed to nutri eloy l statu s or medic ation usage . For perso ns <18 years of age, a pedia tric GFR calcu lator is avail able on the F websi te: https ://ww w.kid leah.o rg/pr ofess ional s/kdo qi/gf r_cal culat or Not Available [facility] (Lab) [address] [place], [address], 08/24/2024 13:01:01 08/24/2008/24/2024 COMPR EHENS LEONELA METAB OLIC PANEL alkaline phosphatase 67 U/L 38-126 Not Available [facility] (Lab) [address] [place], [address], 08/24/2024 13:01:01 08/24/20 24 08/24/2024 COMPR EHENS LEONELA METAB OLIC PANEL alanine aminotransfe rase 60 U/L 0-50 high Not Available [facility] (Lab) [address] [place], [address], 08/24/2024 13:01:01 08/24/20 24 08/24/2024 COMPR EHENS LEONELA METAB OLIC PANEL aspartate aminotransfe rase 38 U/L 15-46 Not Available [facility] (Lab) [address] [place], [address], 08/24/2024 13:01:01 08/24/20 24 08/24/2024 COMPR EHENS LEONELA METAB OLIC PANEL bilirubin, total 0.60 mg/dL 0.20-1 .30 Not Available [facility] (Lab) [address] [place], [address], 08/24/2024 13:01:01 08/24/2008/24/2024 COMPR EHENS LEONELA METAB OLIC PANEL calcium 10.5 mg/dL 8.4-10 .2 high Not Available [facility] (Lab) [address] [place], [address], 08/24/2024 13:01:01 08/24/2008/24/2024 COMPR EHENS LEONELA METAB OLIC PANEL total protein 7.4 g/dL 6.3-8. 2 Not Available [facility] (Lab) [address] [place], [address], 08/24/2024 13:01:01 08/24/2008/24/2024 COMPR EHENS LEONELA METAB OLIC PANEL albumin 4.6 g/dL 3.0-4. 4 high Not Available [facility] (Lab) [address] [place], [address], 08/24/2024 13:01:01 08/24/2008/24/2024 COMPR EHENS LEONELA METAB OLIC PANEL globulin 2.8 g/dL 2.6-4. 2 Not Available [facility] (Lab) [address] [place], [address], 08/24/2024 13:01:01 08/24/2008/24/2024 COMPR EHENS LEONELA METAB OLIC PANEL A/G ratio 1.6 ratio 1.0-2. 0 Not Available [facility] (Lab) [address] [place], [address], 08/24/2024 13:01:01 08/24/2008/24/2024 LIPID PANEL cholesterol 182 mg/dL 140-19 9 [facility] NSUS RECOM MENDA TION FOR RAMA STERO L: ADULT CHILD LOW RISK: <200 <170 BORDE RLINE : <200- 239 ----- HIGH RISK: >240 >200 Not Available [facility] (Lab) [address] [place], [address], 08/24/2024 13:01:04 08/24/2008/24/2024 LIPID PANEL triglyceride s 130 mg/dL 0-150 [facility] NSUS REPOR T RECOM MENDA TION FOR TRIGL YCERI RAVEN: ADULT CHILD LOW RISK: <150 ----- BODER LINE: 150-1 99 ----- HIGH RISK: >200 ----- Not Available [facility] (Lab) [address] [place], [address], 08/24/2024 13:01:04 08/24/2008/24/2024 LIPID PANEL HDL cholesterol 82 mg/dL 40- Not Available [facility] (Lab) [address] [place], [address], 08/24/2024 13:01:04 08/24/2008/24/2024 LIPID PANEL LDL cholesterol, calculated 74 mg/dL 0-130 [facility] NSUS REPOR T RECOM MENDA TIONS FOR LDL: ADULT CHILD LOW RISK <130 <110 (OPTI MAL LDL) <100 ----- BORDE RLINE : 130-1 59 ----- HIGH RISK: >160 >130 A TRIGL YCERI DE RESUL T >400 INVAL IDATE S THE CALCU LATIO N FOR LDL FRACT IONAT ION - THE LDL RESUL T WILL NOT BE REPOR LILIMA. Not Available [facility] (Lab) [address] [place], [address], 08/24/2024 13:01:04 08/24/2008/24/2024 MAGNE SIUM magnesium 2.1 mg/dL 1.6-2. 3 Not Available [facility] (Lab) [address] [place], [address], 08/24/2024 13:01:07 08/24/2008/24/2024 LIPAS E SERUM lipase 65 U/L 23-300 Not Available [facility] (Lab) [address] [place], [address], 08/24/2024 13:01:11 08/24/2008/24/2024 AMYLA SE SERUM amylase 59 U/L 30-110 Not Available [facility] (Lab) [address] [place], [address], 08/24/2024 13:01:13 08/24/2008/24/2024 T4 FREE free T4 1.21 NG/dL 0.78-2 .19 Not Available [facility] (Lab) [address] [place], [address], 08/24/2024 13:39:44 08/24/2008/24/2024 TSH thyroid-stim ulating hormone 2.410 uIU/m L 0.465- 4.680 Not Available [facility] (Lab) [address] [place], [address], 08/24/2024 13:39:28 08/24/2008/24/2024 VITAM IN B12 (PASTOR CHRISTINA ) vb12 436 pg/mL 239-93 1 Not Available [facility] (Lab) [address] [place], [address], 08/24/2024 13:58:08 12/23/19 25 12/23/2024 CBC/C OMPLE TE BLD COUNT W/DIF F white blood cells 7.1 x10'3 /uL 4.2-10 .8 Not Available [facility] (Lab) [address] [place], [address], 12/23/2024 11:52:15 12/23/19 25 12/23/2024 CBC/C OMPLE TE BLD COUNT W/DIF F red blood cells 4.78 x10'6 /uL 4.10-5 .80 Not Available [facility] (Lab) [address] [place], [address], 12/23/2024 11:52:15 12/23/19 25 12/23/2024 CBC/C OMPLE TE BLD COUNT W/DIF F hemoglobin 15.0 g/dL 13.2-1 7.0 Not Available [facility] (Lab) [address] [place], [address], 12/23/2024 11:52:15 12/23/19 25 12/23/2024 CBC/C OMPLE TE BLD COUNT W/DIF F hematocrit 44.7 % 39.3-5 0.0 Not Available [facility] (Lab) [address] [place], [address], 12/23/2024 11:52:15 12/23/19 25 12/23/2024 CBC/C OMPLE TE BLD COUNT W/DIF F mean red cell volume 93.5 fL 80.0-9 7.0 Not Available [facility] (Lab) [address] [place], [address], 12/23/2024 11:52:15 12/23/19 25 12/23/2024 CBC/C OMPLE TE BLD COUNT W/DIF F mean red cell hemoglobin 31.4 pg 27.0-3 3.0 Not Available [facility] (Lab) [address] [place], [address], 12/23/2024 11:52:15 12/23/19 25 12/23/2024 CBC/C OMPLE TE BLD COUNT W/DIF F mean RBC HGB concentratio n 33.6 g/dL 31.0-3 6.0 Not Available [facility] (Lab) [address] [place], [address], 12/23/2024 11:52:15 12/23/19 25 12/23/2024 CBC/C OMPLE TE BLD COUNT W/DIF F red cell distribution width 13.3 % 11.8-1 5.5 Not Available [facility] (Lab) [address] [place], [address], 12/23/2024 11:52:15 12/23/1912/23/2024 CBC/C OMPLE TE BLD COUNT W/DIF F platelets 183 x10'3 /uL 150-40 0 Not Available [facility] (Lab) [address] [place], [address], 12/23/2024 11:52:15 12/23/19 25 12/23/2024 CBC/C OMPLE TE BLD COUNT W/DIF F mean platelet volume 11.9 fL 9.0-12 .4 Not Available [facility] (Lab) [address] [place], [address], 12/23/2024 11:52:15 12/23/19 25 12/23/2024 CBC/C OMPLE TE BLD COUNT W/DIF F neutrophils 55.9 % 39.0-7 2.0 Not Available [facility] (Lab) [address] [place], [address], 12/23/2024 11:52:15 12/23/1912/23/2024 CBC/C OMPLE TE BLD COUNT W/DIF F lymphocytes 33.5 % 16.0-4 7.0 Not Available [facility] (Lab) [address] [place], [address], 12/23/2024 11:52:15 12/23/1912/23/2024 CBC/C OMPLE TE BLD COUNT W/DIF F monocytes 7.1 % 5.0-12 .0 Not Available [facility] (Lab) [address] [place], [address], 12/23/2024 11:52:15 12/23/19 25 12/23/2024 CBC/C OMPLE TE BLD COUNT W/DIF F eosinophils 2.1 % 1.0-7. 0 Not Available [facility] (Lab) [address] [place], [address], 12/23/2024 11:52:15 12/23/1912/23/2024 CBC/C OMPLE TE BLD COUNT W/DIF F basophils 1.0 % 0.0-2. 0 Not Available [facility] (Lab) [address] [place], [address], 12/23/2024 11:52:15 12/23/1912/23/2024 CBC/C OMPLE TE BLD COUNT W/DIF F immature granulocytes 0.4 % 0.00-0 .50 Not Available [facility] (Lab) [address] [place], [address], 12/23/2024 11:52:15 12/23/1912/23/2024 CBC/C OMPLE TE BLD COUNT W/DIF F neutrophils, absolute count 3.95 x10'3 /uL 1.5-8. 0 Not Available [facility] (Lab) [address] [place], [address], 12/23/2024 11:52:15 12/23/1912/23/2024 CBC/C OMPLE TE BLD COUNT W/DIF F lymphocytes, absolute count 2.37 x10'3 /uL 1.07-3 .43 Not Available [facility] (Lab) [address] [place], [address], 12/23/2024 11:52:15 12/23/1912/23/2024 CBC/C OMPLE TE BLD COUNT W/DIF F monocytes, absolute count 0.50 x10'3 /uL 0.29-0 .99 Not Available [facility] (Lab) [address] [place], [address], 12/23/2024 11:52:15 12/23/19 25 12/23/2024 CBC/C OMPLE TE BLD COUNT W/DIF F eosinophils, absolute count 0.15 x10'3 /uL 0.02-0 .53 Not Available [facility] (Lab) [address] [place], [address], 12/23/2024 11:52:15 12/23/19 25 12/23/2024 CBC/C OMPLE TE BLD COUNT W/DIF F basophils, absolute count 0.07 x10'3 /uL 0.01-0 .08 Not Available [facility] (Lab) [address] [place], [address], 12/23/2024 11:52:15 12/23/19 25 12/23/2024 CBC/C OMPLE TE BLD COUNT W/DIF F immature granulocytes ,absolute 0.03 x10'3 /uL 0.00-0 .05 Not Available [facility] (Lab) [address] [place], [address], 12/23/2024 11:52:15 12/23/19 25 12/23/2024 CBC/C OMPLE TE BLD COUNT W/DIF F nucleated red blood cells 0.0 % -0 Not Available [facility] (Lab) [address] [place], [address], 12/23/2024 11:52:15 12/23/19 25 12/23/2024 CBC/C OMPLE TE BLD COUNT W/DIF F NRBC# 0.00 x10'3 /uL Not Available [facility] (Lab) [address] [place], [address], 12/23/2024 11:52:15 12/23/19 25 12/23/2024 COMPR EHENS LEONELA METAB OLIC PANEL sodium 137 mmol/ L 137-14 5 Not Available [facility] (Lab) [address] [place], [address], 12/23/2024 12:00:18 12/23/19 25 12/23/2024 COMPR EHENS LEONELA METAB OLIC PANEL potassium 4.8 mmol/ L 3.5-5. 1 Not Available [facility] (Lab) [address] [place], [address], 12/23/2024 12:00:18 12/23/19 25 12/23/2024 COMPR EHENS LEONELA METAB OLIC PANEL chloride 106 mmol/ L 98-107 Not Available [facility] (Lab) [address] [place], [address], 12/23/2024 12:00:18 12/23/19 25 12/23/2024 COMPR EHENS LEONELA METAB OLIC PANEL carbon dioxide 26 mmol/ L 22-30 Not Available [facility] (Lab) [address] [place], [address], 12/23/2024 12:00:18 12/23/19 25 12/23/2024 COMPR EHENS LEONELA METAB OLIC PANEL anion gap 9.8 mmol/ L 14-22 low Not Available [facility] (Lab) [address] [place], [address], 12/23/2024 12:00:18 12/23/19 25 12/23/2024 COMPR EHENS LEONELA METAB OLIC PANEL glucose 97 mg/dL 70-99 Not Available [facility] (Lab) [address] [place], [address], 12/23/2024 12:00:18 12/23/19 25 12/23/2024 COMPR EHENS LEONELA METAB OLIC PANEL BUN 24 mg/dL 8-19 high Not Available [facility] (Lab) [address] [place], [address], 12/23/2024 12:00:18 12/23/19 25 12/23/2024 COMPR EHENS LEONELA METAB OLIC PANEL creatinine 1.32 mg/dL 0.66-1 .25 high Not Available [facility] (Lab) [address] [place], [address], 12/23/2024 12:00:18 12/23/19 25 12/23/2024 COMPR EHENS LEONELA METAB OLIC PANEL GFR 53 Refer ence Range : [place] ge GFR Healt hy Adult : >60 mL/mi n/1.7 3 m2 Chron ic Kidne y Disea se: 15-60 mL/mi n/1.7 3 m2 Kidne y Failu re: <15/m L/min /1.73 m2 www.n iddk. nih.g ov The MDRD study equat ion has not been valid ated in child gina <18 years of age; pregn ant women ; the elder ly >85 years of age; or in some racia l or ethni c subgr oups, such as Hispa nics. Outsi de the valid ated kori eters , estim ated GFR is less accur ate, requi ring clini anais judgm ent on a case- by-ca se basis . Clini anais inter preta tion for other races and ages must be made by the clini marcelo. The MDRD study equat ion has not been valid ated for the evalu ation of serum creat inine relat ed to nutri eloy l statu s or medic ation usage . For perso ns <18 years of age, a pedia tric GFR calcu lator is avail able on the [facility] websi te: https ://aliyah w.brunilda lynn.o rg/pr ofess ional s/kdo qi/gf r_cal culat or Not Available [facility] (Lab) [address] [place], [address], 12/23/2024 12:00:18 12/23/1912/23/2024 COMPR EHENS LEONELA METAB OLIC PANEL alkaline phosphatase 62 U/L 38-126 Not Available [facility] (Lab) [address] [place], [address], 12/23/2024 12:00:18 12/23/19 25 12/23/2024 COMPR EHENS LEONELA METAB OLIC PANEL alanine aminotransfe rase 48 U/L 0-50 Not Available [facility] (Lab) [address] [place], [address], 12/23/2024 12:00:18 12/23/1912/23/2024 COMPR EHENS LEONELA METAB OLIC PANEL aspartate aminotransfe rase 32 U/L 15-46 Not Available [facility] (Lab) [address] [place], [address], 12/23/2024 12:00:18 12/23/1912/23/2024 COMPR EHENS LEONELA METAB OLIC PANEL bilirubin, total 0.90 mg/dL 0.20-1 .30 Not Available [facility] (Lab) [address] [place], [address], 12/23/2024 12:00:18 12/23/1912/23/2024 COMPR EHENS LEONELA METAB OLIC PANEL calcium 9.6 mg/dL 8.4-10 .2 Not Available [facility] (Lab) [address] [place], [address], 12/23/2024 12:00:18 12/23/1912/23/2024 COMPR EHENS LEONELA METAB OLIC PANEL total protein 7.2 g/dL 6.3-8. 2 Not Available [facility] (Lab) [address] [place], [address], 12/23/2024 12:00:18 12/23/1912/23/2024 COMPR EHENS LEONELA METAB OLIC PANEL albumin 4.6 g/dL 3.0-4. 4 high Not Available [facility] (Lab) [address] [place], [address], 12/23/2024 12:00:18 12/23/1912/23/2024 COMPR EHENS LEONELA METAB OLIC PANEL globulin 2.6 g/dL 2.6-4. 2 Not Available [facility] (Lab) [address] [place], [address], 12/23/2024 12:00:18 12/23/1912/23/2024 COMPR EHENS LEONELA METAB OLIC PANEL A/G ratio 1.8 ratio 1.0-2. 0 Not Available [facility] (Lab) [address] [place], [address], 12/23/2024 12:00:18 12/23/1912/23/2024 LIPID PANEL cholesterol 175 mg/dL 140-19 9 [facility] NSUS RECOM MENDA TION FOR RAMA STERO L: ADULT CHILD LOW RISK: <200 <170 BORDE RLINE : <200- 239 ----- HIGH RISK: >240 >200 Not Available [facility] (Lab) [address] [place], [address], 12/23/2024 12:00:22 12/23/1912/23/2024 LIPID PANEL triglyceride s 130 mg/dL 0-150 [facility] NSUS REPOR T RECOM MENDA TION FOR TRIGL YCERI RAVEN: ADULT CHILD LOW RISK: <150 ----- BODER LINE: 150-1 99 ----- HIGH RISK: >200 ----- Not Available [facility] (Lab) [address] [place], [address], 12/23/2024 12:00:22 12/23/1912/23/2024 LIPID PANEL HDL cholesterol 58 mg/dL 40- Not Available [facility] (Lab) [address] [place], [address], 12/23/2024 12:00:22 12/23/1912/23/2024 LIPID PANEL LDL cholesterol, calculated 91 mg/dL 0-130 [facility] NSUS REPOR T RECOM MENDA TIONS FOR LDL: ADULT CHILD LOW RISK <130 <110 (OPTI MAL LDL) <100 ----- BORDE RLINE : 130-1 59 ----- HIGH RISK: >160 >130 A TRIGL YCERI DE RESUL T >400 INVAL IDATE S THE CALCU LATIO N FOR LDL FRACT IONAT ION - THE LDL RESUL T WILL NOT BE REPOR LILIAM. Not Available [facility] (Lab) [address] [place], [address], 12/23/2024 12:00:22 12/23/19 25 12/23/2024 MAGNE SIUM magnesium 2.1 mg/dL 1.6-2. 3 Not Available [facility] (Lab) [address] [place], [address], 12/23/2024 12:00:27 12/23/19 25 12/23/2024 T4 FREE free T4 1.37 NG/dL 0.78-2 .19 Not Available [facility] (Lab) [address] [place], [address], 12/23/2024 12:30:34 12/23/19 25 12/23/2024 TSH thyroid-stim ulating hormone 2.310 uIU/m L 0.465- 4.680 Not Available [facility] (Lab) [address] [place], [address], 12/23/2024 12:43:51 12/23/19 25 12/23/2024 PSA, TOTAL PSA, total 1.99 NG/mL 0.00-4 .00 Not Available [facility] (Lab) [address] [place], [address], 12/23/2024 12:43:56 12/23/1912/23/2024 VITAM IN B12 (PASTOR CHRISTINA ) vb12 490 pg/mL 239-93 1 Not Available [facility] (Lab) [address] [place], [address], 12/23/2024 12:44:31 07/04/20 23 07/04/2023 US, breas t, unila teral [facility] [address] [place], [place] [id number] [phone] Patien t Name: TERRY CHERRY Access ion #: [id number] Sex: M : 1950 9 Dictat ed By: Herb Cabrera Attend ing Physic shy: ELIZABETH JOY CE Orderi ng Physic shy: ELIZABETH JOY CE Exam Date: 2022 08:21 AM Exam Name: US BREAST LIMITE D LT Admitt ing Diagno sis(es ): Histor y: Left-s ided breast mass. Techni que: Bilate ral CC and MLO views with spot compre ssion views of the left breast . COMPAR SAVANNA: No priors FINDIN GS Mammog raphic findin gs: Fatty breast tissue s are seen within area of persis tent densit y, adjace nt to the nipple . No abnorm al findin gs are seen within the right breast . Ultras ound shows irregu lar mass adjace nt to the nipple 1.4 x 1.1 cm with calcif icatio ns. No signif icant vascul arity. Impres jordan: 1. Suspic ious mass adjace nt to the left nipple . Biopsy is recomm ended. BI-RAD S 5 suspic ious Electr onical ly Signed by: Herb Cabrera at 2022 15:09: 53 PM Page 1 [email or web address] [facility] (Imaging) [address] [place], [address], 07/04/2023 16:15:16 07/04/20 23 07/04/2023 MAMMO , diagn ostic , tomos ynthe sis, bilat eral [facility] [address] [id number] [phone] Patiyuki t Name: TERRY CHERRY Access ion #: [id number] Sex: M : 1950 7 Dictat ed By: Herb Cabrera Attend ing Physic shy: ELIZABETH JOY CE Orderi ng Physic shy: ELIZABETH JOY CE Exam Date: 09/07/ 2023 07:53 AM Exam Name: MG MOREIRA BREAST ISADORA BILAT Admitt ing Diagno sis(es ): Histor y: Left-s ided breast mass. Techni que: Bilate ral CC and MLO views with spot compre ssion views of the left breast . COMPAR SAVANNA: No priors FINDIN GS Mammog raphic findin gs: Fatty breast tissue s are seen within area of persis tent densit y, adjace nt to the nipple . No abnorm al findin gs are seen within the right breast . Ultras ound shows irregu lar mass adjace nt to the nipple 1.4 x 1.1 cm with calcif icatio ns. No signif icant vascul arity. Impres jordan: 1. Suspic ious mass adjace nt to the left nipple . Biopsy is recomm ended. BI-RAD S 5 suspic ious Electr onical ly Signed by: Herb Cabrera at 2022 15:09: 53 PM Page 1 [email or web address] [facility] (Imaging) [address] [place], [address], 07/04/2023 16:15:42 02/10/20 24 02/10/2024 LDCT, chest , for lung cance r scree beatriz [facility] [address] [address] Patien t Name: TERRY CHERRY Access ion #: [id number] Sex: M : 1950 3 Dictat ed By: Sanjay Walsh Attend ing Physic shy: ELIZABETH JOY CE Orderi Physic shy: ELIZABETH JOY CE Exam Date: 2023 08:46 AM Exam Name: CT LOW DOSE CNCR SCREEN ING Admitt ing Diagno sis(es ): CT Chest withou t intrav enous contra st INDICA TION: tobbac o use TECHNI QUE: Multid etecto r spiral CT of the chest was perfor med from the lung apices to the upper abdome n. Axial, reaves l and sagitt al multip lanar reform ats were perfor med. Radiat ion Dose : 1. Chest: CTDI volume is 2.1 mGy. Dose-l ength produc t is 87.9 mGy*cm The dose indica tors for CT are the volume Comput ed Tomogr aphy (CT) Dose Index (CTDIv ol) and the Dose Length Produc t (DLP), and are measur ed in units of mGy and mGy-cm , respec tively . These indica tors are not patien t dose, but values genera liliam from the CT scanne r acquis ition factor s. The report includ es radiat ion exposu re data for exposu res receiv ed during this examin ation. Compar savanna: 022, 021 Findin gs: Lower neck: Normal thyroi d. Lungs: No focal consol idatio n, pleura l effusi on or pneumo thorax . 0.9 cm calcif ied granul adrian in the left upper lobe. 0.5 cm calcif ied granul adrian in the left lower lobe. Unchan ged 0.4 cm nodule in the periph patrick of the right upper lobe. Mild centri lobula r emphys luis fernando. Heart/ Vascul ar Struct ures: Reaves ry artery calcif icatio ns. Vascul ar calcif icatio ns of the aorta. Lymph Nodes: No adenop athy. Calcif ied medias tinal lymph nodes are likely Page 1 [facility] [address] [address] Patien t Name: TERRY CHERRY Access ion #: [id number] Sex: M : 1950 1 Dictat ed By: Sanjay Walsh Attend ing Physic shy: VEGA CARTER [facility]: ELIZABETH JOY Exam Date: 2023 08:46 AM Exam Name: CT LOW DOSE CNCR SCREEN ING Admitt ing Diagno sis(es ): sequel ae of prior granul omatou s infect ion. Pleura : No pleura l effusi on or signif icant pneumo thorax . Muscul oskele tash: No acute osseou s abnorm ality. Soft tissue s: Normal . Upper abdome n: Limite d portio ns of the upper abdome n are unrema rkable . IMPRES JORDAN: No new or suspic ious thorac ic findin g. Radiat ion optimi zation : All CT scans at this facili ty use at least one of these dose optimi zation techni ques: automa liliam exposu re contro l mA and/or kV adjust ment per patien t size (inclu raven target ed exams where dose is matche d to clinic al indica tion) or iterat leonela recons tructi on. Lung-R ADS Catego ry 2: Contin ue annual screen ing with LDCT Electr onical ly Signed by: Sanjay Walsh at 2023 10:26: 42 AM Page [address] (Imaging) [address] [place], [address], 02/10/2024 12:16:43 02/11/20 24 02/10/2024 PFT, compl ete No observ ation record ed. [address] [place], [address], 02/11/2024 17:42:39 02/12/20 24 02/10/2024 PFT, compl ete No observ ation record ed. [facility] (One Call Scheduling) [address] [place], [address], 02/12/2024 14:01:43 02/25/20 24 02/10/2024 PFT, compl ete No observ ation record ed. [email or web address] [id number] Not Available 2023 12:03:34 02/25/20 PFT, compl ete No observ ation record ed. [email or web address] [id number] Not Available 2023 12:03:34 05/01/20 24 05/01/2024 US, zahraa esteves, blanca id arter y No observ ation record ed. [address], [place], [address], 05/01/2024 20:22:34 05/20/20 24 05/01/2024 US, duple x, carot id arter y No observ ation record ed. [address] [facility] [address], [place], [address], 05/20/2024 17:41:53 06/15/20 24 06/15/2024 XR, shoul nano No observ ation record ed. [address] (Admitting) [address], [place], [address], 06/15/2024 13:49:24 08/31/20 24 08/28/2024 US, kurtisle x, carot id arter y No observ ation record ed. [address] [facility] [address], [place], [address], 08/31/2024 10:22:49 08/31/20 24 08/28/2024 US, echoc ardio gram No observ ation record ed. [address] [facility] [address], [place], [address], 08/31/2024 10:26:36 09/22/20 24 09/21/2024 CT, abdom en + pelvi s, w/ contr ast No observ ation record ed. [address], [place], [address], 09/22/2024 08:26:32 Result Notes None recorded. Problems Name Problem SNOMED Code Status Onset Date Resolution Date Notes Provider Name and Address Organization Details Recorded Time Irritable bowel syndrome 34540448 Active Not Available [facility] 3 03:32:48 Testicular hypofuncti on 814751128 Completed 201904/07/2020 Not Available [facility] 3 08:49:02 Prostatism 64650208 Completed Not Available [facility] 3 08:49:03 Gastroesop hageal reflux disease 989475480 Active 2021 Not Available [facility] 3 03:32:49 Osteoarthr itis of hip 657872125 Active Not Available [facility] 3 03:32:49 Benign prostatic hyperplasi a 178919229 Active 2016 Not Available [facility] 3 03:32:49 Pure hyperchole sterolemia 397853095 Active 2019 Not Available [facility] 3 03:32:49 Depressive disorder 41279012 Active Not Available [facility] 3 03:32:49 Chronic pain syndrome 642717966 Active 2017 Not Available [facility] 3 03:32:49 Recurrent hernia of anterior abdominal wall 004472852 Active 2019 Not Available [facility] 3 03:32:49 Anxiety 57211400 Active 2021 Not Available [facility] 3 03:32:49 Male hypogonadi sm 71455773 Active 2021 Not Available [facility] 3 03:32:49 Degenerati on of interverte bral disc 56817710 Active 2021 Not Available [facility] 3 03:32:49 Herniation of nucleus pulposus 04576962 Active 2016 Not Available [facility] 3 03:32:49 Cardiomyop athy 15951809 Active 2022 Not Available [facility] 3 03:32:49 Amaurosis fugax 48190418 Active 2023 Grecia Joy MD [address] [place] [address], [address] , [facility] [employer] [facility] [employer] [facility] 4 12:31:58 Amaurosis fugax 98396168 Active 2023 Araseli Peters null, [employer] [facility] [employer] [facility] 4 12:42:33 Essential hypertensi on 31835371 Active 2023 Marnie Goss null, [employer] [facility] [employer] [facility] 4 17:02:50 Cardiac arrhythmia 186101030 Active 2023 Aleshia Joiner CMA null, [facility] 4 10:34:26 Abdominal pain 65564663 Active 2023 Grecia Joy MD [address], [place], [address] , [facility] 4 11:52:45 Chronic abdominal pain 710853574 Active 2023 Aleshia Rhys, [employer]ANK [employer] null, [facility] 4 15:18:56 Disorder of prostate 17474105 Active 2024 Grecia Joy MD [address], [place], [address] , [facility] 5 10:39:32 Notes:PFT 02/10/24 nl FEV1/F VC, FEV1 2.94 L (113%), TLC 5.79 L (101%), RV 1.68 L (70%), DLCO 84%, DLCO/VA 87% Problem Notes None recorded. Procedures Surgical History Date Name Laterality Status Provider Name and Address Organization Details Recorded Time 07/15/2023 other completed Jo-Ann Prado MA [facility] 07/24/2023 15:20:47 Imaging Results Imaging Date Name Status LastModified by Organization Details LastModified Time 07/04/2023 US, breast, unilateral completed [address] (Imaging) [address] [place], [address], 07/04/2023 16:15:16 07/04/2023 MAMMO, diagnostic, tomosynthesis, bilateral completed [address] (Imaging) [address] [place], [address], 07/04/2023 16:15:42 02/10/2024 LDCT, chest, for lung cancer screening completed [address] (Imaging) [address] [place], [address], 02/10/2024 12:16:43 02/10/2024 PFT, complete completed [address] [place], [address], 02/11/2024 17:42:39 02/10/2024 PFT, complete completed [facility] (One Call Scheduling) [address] [place], [address], 02/12/2024 14:01:43 02/10/2024 PFT, complete completed [email or web address] Information not available 02/25/2024 12:03:34 02/25/2024 PFT, complete completed [email or web address] Information not available 02/25/2024 12:03:34 05/01/2024 US, duplex, carotid artery completed [address], [place], [address], 05/01/2024 20:22:34 05/01/2024 US, duplex, carotid artery completed [address] [facility] [address], [place], [address], 05/20/2024 17:41:53 06/15/2024 XR, shoulder completed [address] (Admitting) [address], [place], [address], 06/15/2024 13:49:24 08/28/2024 US, duplex, carotid artery completed [address] [facility] [address], [place], [address], 08/31/2024 10:22:49 08/28/2024 US, echocardiogram completed [address] [facility] [address], [place], [address], 08/31/2024 10:26:36 09/21/2024 CT, abdomen + pelvis, w/ contrast completed [address], [place], [address], 09/22/2024 08:26:32 Procedure Notes None recorded. Medical Equipment None Reported. Allergies No known drug allergies Medications Name Sig Start Date Stop Date Status Note LastModified by Organization Details LastModified Time celecoxib 200 mg capsule Take 1 capsule every day by oral route for 30 days. active Not Available Not Available No t Available cyclobenz aprine 10 mg tablet active Not Available Not Available No t Available amoxicill in 500 mg capsule Take 1 capsule 3 times a day by oral route for 5 days. 04/29 completed Not Available Not Available Not Available atorvasta tin 40 mg tablet PLEASE CHECK WE DID THIS ON 07-27-24 #90 1 REFILL SHOULD NOT NEED A NEW RX 2024 active Not Available Not Available Not Avai lable buspirone 5 mg tablet active Not Available Not Available Not Available atorvasta tin 20 mg tablet TAKE 1 TABLET BY MOUTH EVERY DAY 2024 active Not Available Not Available Not Avai lable trazodone 50 mg tablet TAKE 1 TABLET BY MOUTH EVERYDAY AT BEDTIME active Not Available Not Available No t Available oxybutyni n chloride ER 10 mg tablet,ex tended release 24 hr TAKE 1 TABLET BY MOUTH EVERY DAY active Not Available Not Available No t Available azithromy aravind 250 mg tablet TK 2 TS PO AT ONCE TODAY THEN TK 1 T PO ONCE D FOR 4 DAYS active Not Available Not Available No t Available alprazola m 1 mg tablet TAKE 1 TABLET BY MOUTH THREE TIMES A DAY FOR ANXIETY (F41.9) active Not Available Not Available No t Available tizanidin e 4 mg tablet TAKE 1 TABLET BY MOUTH EVERY DAY AT BEDTIME 12/04 completed Not Available Not Available Not Available tolterodi ne ER 4 mg capsule,e xtended release 24 hr TAKE 1 CAPSULE BY MOUTH ONCE DAILY 12/23 completed Not Available Not Available Not Available hydrocodo ne 5 mg-acetam inophen 325 mg tablet active Not Available Not Available Not Available meloxicam 15 mg tablet TAKE 1 TABLET BY MOUTH EVERY DAY 04/07 completed Not Available Not Available Not Available Pyridium 200 mg tablet Take 1 tablet 3 times a day by oral route. 06/04 completed Not Available Not Available Not Available acyclovir 400 mg tablet active Not Available Not Available Not Available ciproflox acin 500 mg tablet Take 1 tablet every 12 hours by oral route for 2 days. 03/04 completed Not Available Not Available Not Available sulfameth oxazole 800 mg-trimet hoprim 160 mg tablet TAKE 1 TABLET BY MOUTH EVERY 12 HOURS 02/01 completed Not Available Not Available Not Available hydrocodo ne 10 mg-acetam inophen 325 mg tablet TAKE 1 TABLET BY MOUTH 4 TIMES A DAY NEEDED FOR HERNIATE D PULPOSUS active DILIP BEYER 9 10/30/2019 HYDROCOD ONE BITARTRA TE-ACETA MINOPHEN 325 MG-10 MG 120 30 [facility] GRECIA [place] DILIP BEYER 9 10/30/2019 XANAX 1MG 90 30 Ins[facility] e [facility] GRECIA [place] MD [place] DILIP [place] 9 10/29/2019 TESTOSTE TANK 30 MG/1.5 ML 90 30 Ins[facility]anc e [facility] J[facility] GRECIA R[place] MD [place] DILIP [place] 9 9 HYDROCOD ONE BITARTRA TE-ACETA MINOPHEN 325 MG-10 MG 120 30 Ins[facility]anc e [facility] JERSEYVI GRECIA RANDALL MD [place] DILIP [place]YER 9 9 XANAX 1MG 90 30 [facility] e [facility] GRECIA R[place]ALL MD [place] DILIP [place]YER 9 9 TESTOSTE TANK 30 MG/1.5 ML 90 30 Ins[facility]anc e [facility] GRECIA R[place]ALL MD [place] DILIP [place]YER 9 9 TESTOSTE TANK 30 MG/1.5 ML 90 30 [facility]anc e [facility] J[facility] GRECIA R[place]ALL MD [place] DILIP [place]YER 9 9 HYDROCOD ONE BITARTRA TE-ACETA MINOPHEN 325 MG-10 MG 120 30 Ins[facility]anc e [facility] J[facility] GRECIA RANDALL MD [place] DILIP BEYER 9 9 XANAX 1MG 90 30 [facility] e [facility] JERSE[facility] GRECIA R[place]ALL MD [place] DILIP [place]YER 9 9 HYDROCOD ONE BITARTRA TE-ACETA MINOPHEN 325 MG-10 MG 120 30 Ins[facility]anc e [facility] J[facility]SEY[facility] GRECIA RANDALL MD [place] DILIP TERRY 9 9 TESTOSTE TANK 30 MG/1.5 ML 90 30 Insuranc e [facility] NESTOR FOWLER Not Available Not Available Not Available amitripty line 50 mg tablet active Not Available Not Available No t Available sildenafi l 100 mg tablet TAKE 1 TABLET BY MOUTH ONCE DAILY NEEDED active Not Available Not Available No t Available spironola ctone 25 mg tablet TAKE 1/2 TABLET BY MOUTH DAILY active Not Available Not Available No t Available carvedilo l 3.125 mg tablet TAKE 1 TABLET BY MOUTH TWICE A DAY active Not Available Not Available No t Available oxycodone -acetamin ophen 5 mg-325 mg tablet TK 1 T PO TID active Not Available Not Available No t Available alprazola m 0.5 mg tablet TAKE 1 TABLET BY MOUTH 3 TIMES DAILY FOR ANXIETY 2024 active Not Available Not Available Not Avai lable oxycodone -acetamin ophen 10 mg-325 mg tablet active Not Available Not Available Not Available tamsulosi n 0.4 mg capsule TAKE 1 CAPSULE BY MOUTH EVERY DAY 12/05 completed Not Available Not Available Not Available doxycycli ne monohydra te 100 mg capsule TAKE 2 CAPSULES BY MOUTH ON DAY 1 THEN TAKE 1 CAPSULE DAILY ON DAYS 2-10 08/03 completed Not Available Not Available Not Available hydrocodo ne 7.5 mg-acetam inophen 325 mg tablet ONE FOUR TIMES A DAY FOR dx: m51.9 2024 active Not Available Not Available Not Avai lable cephalexi n 500 mg capsule TAKE 1 CAPSULE BY MOUTH EVERY 6 HOURS 12/04 completed Not Available Not Available Not Available pantopraz ole 40 mg tablet,de layed release TAKE 1 TABLET BY MOUTH TWICE DAILY active Not Available Not Available No t Available nitroglyc edgardo 0.4 mg sublingua l tablet PLEASE SEE ATTACHED FOR DETAILED DIRECTIO NS active Not Available Not Available No t Available docusate sodium 100 mg capsule TAKE 1 CAPSULE BY MOUTH EVERY DAY active Not Available Not Available No t Available omeprazol e 20 mg capsule,d elayed release TAKE 1 CAPSULE BY MOUTH EVERY DAY 12/05 completed Not Available Not Available Not Available diclofena c sodium 75 mg tablet,de layed release TAKE 1 TABLET BY MOUTH TWICE A DAY 2024 active Not Available Not Available Not Avai lable Levaquin 500 mg tablet Take 1 tablet every 24 hours by oral route. 06/04 completed Not Available Not Available Not Available methylpre dnisolone 4 mg tablets in a dose pack 06/26 completed Not Available Not Available Not Available hydrocodo ne 10 mg-acetam inophen 650 mg tablet 01/29 completed Not Available Not Available Not Available fluoxetin e 20 mg capsule TAKE ONE CAPSULE BY MOUTH EVERY DAY active Not Available Not Available No t Available Ambien 10 mg tablet Take 1 tablet as needed by oral route at bedtime for 30 days. 02/05 completed Not Available Not Available Not Available finasteri de 5 mg tablet TAKE 1 TABLET(S ) EVERY DAY BY ORAL ROUTE. 12/04 completed Not Available Not Available Not Available amoxicill in 875 mg-potass ium clavulana te 125 mg tablet 04/07 completed Not Available Not Available Not Available testoster one 1 % (50 mg/5 gram) transderm al gel packet 1 tube daily active Not Available Not Available No t Available Cialis 5 mg tablet Take 1 tablet every day by oral route for 30 days. 05/16 completed Not Available Not Available Not Available Cialis 20 mg tablet TAKE 1 TABLET(S ) EVERY DAY BY ORAL ROUTE. 05/16 completed Not Available Not Available Not Available AndroGel 1 % 12.5 mg/1.25 gram per pump actuation transderm al gel 3 pumps daily active Not Available Not Available No t Available lactulose 10 gram/15 mL oral solution 12/23 completed Not Available Not Available Not Available Vesicare 5 mg tablet Take 1 tablet every day by oral route. active Not Available Not Available No t Available Chantix 1 mg tablet TAKE 1 TABLET(S ) TWICE A DAY BY ORAL ROUTE. 11/12 completed Not Available Not Available Not Available Toviaz 8 mg tablet,ex tended release Take 1 tablet every day by oral route for 90 days. active Not Available Not Available No t Available GaviLyte- N 420 gram oral solution active Not Available Not Available Not Available azelastin e 205.5 mcg (0.15 %) nasal spray SPRAY 1 SPRAY IN EACH NOSTRIL BID active Not Available Not Available No t Available Suprep Bowel Prep Kit 17.5 gram-3.13 gram-1.6 gram oral solution 06/26 completed Not Available Not Available Not Available testoster one 30 mg/actuat ion (1.5 mL) transderm solution metered pump APPLY 2 PUMPS DAILY active Not Available Not Available No t Available AndroGel 20.25 mg/1.25 gram per pump act. (1.62 %) transderm al gel APPLY 3 PUMPS TOPICALL Y DAILY DIRECTED active Not Available Not Available No t Available Xarelto 10 mg tablet active Not Available Not Available Not Available Androderm 4 mg/24 hr transderm al 24 hour patch APPLY 1 PATCH TO SKIN EVERY DAY 06/20 completed Not Available Not Available Not Available Chantix Starting Month Box 0.5 mg (11)-1 mg (42) tablets in dose pack TAKE 0.5MG TAB EVERY MORNING DAY 1-3 THEN TWICE A DAY DAYS 4-7 THEN 1MG TABLET TWICE A DAY active Not Available Not Available No t Available Myrbetriq 50 mg tablet,ex tended release Take 1 tablet every day by oral route. 12/27 completed Not Available Not Available Not Available AndroGel 1.62 % (40.5 mg/2.5 gram) transderm al gel packet Apply 3 pumps daily active faxed Not Available Not Available No t Available Entresto 24 mg-26 mg tablet TAKE 1 TABLET BY MOUTH TWICE A DAY active Not Available Not Available No t Available Shingrix (PF) 50 mcg/0.5 mL intramusc ular suspensio n, kit 06/04 completed Not Available Not Available Not Available Vitals Date Recorded Body height Body mass index (BMI) Body weight Heart rate Body temperature Oxygen saturation Oxygen saturation in Arterial blood by Pulse oximetry Systolic blood pressure Diastolic blood pressure Provider Name and Address Organization Details Last Updated DateTime 3 171.45 cm 29.8 kg/m2 96075.3 3 g 51 /min 97 [degF] 96 % 96 % 120 mm[Hg] 72 mm[Hg] Marnie Ly Lili [facility] 3 11:17:12 Date Recorded Body height Body mass index (BMI) Body weight Heart rate Body temperature Oxygen saturation Oxygen saturation in Arterial blood by Pulse oximetry Systolic blood pressure Diastolic blood pressure Provider Name and Address Organization Details Last Updated DateTime 4 171.45 cm 29.8 kg/m2 38763.3 3 g 81 /min 97 [degF] 95 % 95 % 138 mm[Hg] 74 mm[Hg] Marnie Goss [employer] [facility] [employer] [facility] 4 12:04:08 Date Recorded Body height Body mass index (BMI) Body weight Heart rate Body temperature Oxygen saturation Oxygen saturation in Arterial blood by Pulse oximetry Systolic blood pressure Diastolic blood pressure Provider Name and Address Organization Details Last Updated DateTime 4 171.45 cm 29.6 kg/m2 86059.7 4 g 69 /min 97.9 [degF] 95 % 95 % 118 mm[Hg] 86 mm[Hg] Janelle Denton YOLANDARj [employer] [facility] [employer] [facility] 4 12:08:11 Date Recorded Body height Body mass index (BMI) Body weight Heart rate Body temperature Oxygen saturation Oxygen saturation in Arterial blood by Pulse oximetry Systolic blood pressure Diastolic blood pressure Provider Name and Address Organization Details Last Updated DateTime 4 171.45 cm 30.1 kg/m2 38139.5 1 g 60 /min 97 [degF] 97 % 97 % 120 mm[Hg] 86 mm[Hg] Janelle Denton YOLANDARj [facility] [employer] [facility] 4 11:28:38 Date Recorded Body height Body mass index (BMI) Body weight Heart rate Body temperature Oxygen saturation Oxygen saturation in Arterial blood by Pulse oximetry Systolic blood pressure Diastolic blood pressure Provider Name and Address Organization Details Last Updated DateTime 5 172.72 cm 30.1 kg/m2 25537.2 9 g 56 /min 97 [degF] 95 % 95 % 118 mm[Hg] 70 mm[Hg] Marnie Goss [employer] [facility] [employer] [facility] 5 10:33:03 Social History Question Answer Notes LastModified by Organizat ion Details LastModified Time Are You Blind Or Do You Have Difficulty Seeing? No [id number] Information not available 12/26/2022 In The 14 Days Before Symptom Onset, Have You Had Close Contact With A Laboratory-confirme d COVID-19 While That Case Was Ill? No [id number] Information not available 12/26/2022 In The 14 Days Before Symptom Onset, Have You Had Close Contact With A Person Who Is Under Investigation For COVID-19 While That Person Was Ill? No [id number] Information not available 12/26/2022 Are You Deaf Or Do You Have Serious Difficulty Hearing? No [id number] Information not available 12/26/2022 Have You Recently Traveled Abroad? No [id number] Information not available 12/26/2022 Sex: Unknown Functional Status Question Answer Note LastModified by Organizat ion Details LastModified Time Do you have difficulty walking or climbing stairs? No [id number] Information not available 12/26/2022 Do you have transportation difficulties? No [id number] Information not available 12/26/2022 Are you able to walk? YESWOREST [id number] Information not available 12/26/2022 Do you have difficulty doing errands alone? No [id number] Information not available 12/26/2022 Are you able to care for yourself? Yes [id number] Information not available 12/26/2022 Do you have difficulty dressing or bathing? No [id number] Information not available 12/26/2022 Mental Status Question Answer Note LastModified by Organizat ion Details LastModified Time Do you have difficulty concentrating, remembering or making decisions? No [id number] Information not available 12/26/2022 Family History Relationship Description Onset Age of this Age Resolved Age Notes LastModified by Organization Details LastModified Time Father No current problems or disability [id number] Not available 12/26/2022 08:44:45 Mother No current problems or disability [id number] Not available 12/26/2022 08:44:45 Notes:Mother 94 from [place] Father 64 from [place] Two brothers living One sister living in good health Medical History Condition Response NERVE DISEASE N BLINDNESS N RHEUMATIC FEVER N KIDNEY STONES N BLADDER PROBLEMS N MRSA N OTHER # 1 N POLIO N LUNG DISEASE/DISORDER N HISTORY OF DRUG ABUSE N COPD Y RADIATION / CHEMOTHERAPY N Other # 2 N BLOOD DISEASES N EAR OR HEARING PROBLEMS N MUMPS N SHINGLES N BOWEL PROBLEMS N DEPRESSION (INCLUDING POST ) N STROKE/TIA N ULCERS N BENIGN PROSTATIC HYPERPLASIA Y MEASLES N HYPOTENSION N MYOCARDIAL INFARCTION N OBESITY N GERD/NAUSEA N ANEURYSM N URINARY/BLADDER/KIDNEY PROBLEMS N CORONARY ARTERY DISEASE (CAD) N ADDICTION CONCERNS N ENDOMETRIOSIS N Impotence N USE OF BLOOD THINNERS N SKIN PROBLEMS N GASTROINTESTINAL DISORDER N PERIPHERAL VASCULAR DISEASE N MUSCLE,JOINT OR BONE PROBLEMS N GASTROINTESTINAL BLEEDING N BLOOD CLOTS N ASTHMA N CATARACTS N ERECTILE DYSFUNCTION N VARICOSITIES N GI PROBLEMS N Low Testosterone N INFERTILITY N AIDS/HIV N CHEMOTHERAPY / RADIATION N LIVER DISEASE N MALE HYPOGONADISM N HYPERTENSION N Deficiency N TOURETTE'S N ANXIETY DISORDER Y BLOOD TRANSFUSION N ANEMIA/BLOOD DISORDER N CHRONIC EAR INFECTIONS N BRONCHITIS N TUBERCULOSIS N GLAUCOMA N FOOT PROBLEM N DIVERTICULITIS N CHICKENPOX N SLEEP APNEA N INFECTIOUS DISEASE N HEART ARRHYTHMIA N PROSTATE N INSOMNIA N HIGH CHOLESTEROL / HYPERLIPIDEMIA N HYPERTHYROIDISM N EYE PROBLEMS N EDEMA N CHRONIC PAIN SYNDROME N HYPOTHYROIDISM N CAROTID BLOCKAGE N CONSTIPATION N BACK / NECK PROBLEMS N HAVE YOU BEEN HOSPITALIZED OR SEEN IN [facility] IN THE PAST YEAR ? N ATHEROSCLEROSIS N BREAST PROBLEMS N DIALYSIS N ECZEMA N OSTEOPOROSIS N ARTHRITIS N NO SIGNIFICANT PAST MEDICAL HISTORY N APPENDICITIS N DIABETES, TYPE N BAD TEETH N ENT N HEARTBURN / REFLUX N AUTISM SPECTRUM DISORDER (ASD) N HEPATITIS / LIVER DISEASE N GOUT N SLEEP DISORDER N ALZHEIMER'S DISEASE N Brain Problems N HERPES N DEMENTIA N HEADACHES/MIGRAINES N SEIZURES/EPILEPSY N VASCULAR DISEASE N PACEMAKER N Blood Disorder N DIZZINESS N HEART DISEASE/HEART PROBLEMS N KIDNEY DISEASE N MULTIPLE SCLEROSIS N CARDIAC ARRHYTHMIA N CANCER: SPECIFY N ATRIAL FIBRILLATION N Gall Stones N PULMONARY EMBOLISM N AUTOIMMUNE DISEASE N Immunizations Vaccine Type Date Status Note Provider Nam e and Address Organization Details Recorded Time Influenza, high-dose, quadrivalent, PF 3 completed HENRRY Tuttle Lili [employer] 08/01/2023 17:45:18 SARS-COV-2 (COVID-19) vaccine, UNSPECIFIED 1 completed Not Available [facility] 07/18/2023 03:32:53 SARS-COV-2 (COVID-19) vaccine, UNSPECIFIED 1 completed Not Available [facility] 07/18/2023 03:32:53 Influenza, high-dose, quadrivalent, PF 1 completed Not Available [facility] 07/18/2023 03:32:53 Pneumococcal conjugate PCV 13 7 completed Not Available [facility] 07/18/2023 03:32:53 Influenza, high-dose, quadrivalent, PF 2 completed Not Available [facility] 07/18/2023 03:32:53 pneumococcal polysaccharide PPV23 1 completed Not Available [facility] 07/18/2023 03:32:53 Influenza, split virus, quadrivalent, PF 6 completed Not Available [facility] 07/18/2023 03:32:53 Influenza, split virus, trivalent, preservative 4 completed Not Available [facility] 07/18/2023 03:32:53 Influenza, split virus, trivalent, preservative 3 completed Not Available [facility] 07/18/2023 03:32:53 Influenza, high-dose, trivalent, PF 4 completed Grecia Joy MD [address] [facility] [address], [place], [address], [facility] 08/24/2024 11:59:24 Past Encounters Encounter ID Performer Location Encounter Start Date Encounter Closed Date Diagnosis/Indication Diagnosis SNOMED-CT Code Diagnosis ICD10 Code Diagnosis Note [id number] [email or web address] [address] [place] [phone] 04/06/2021 00:00:00 04/06/2021 12:51:39 [id number] [email or web address] Internal Med [facility] [address] [place] [address] [address] 08/03/2021 00:00:00 08/03/2021 14:40:52 [id number] [facility] Internal Med [facility] [address] [place] [address] [address] 02/01/2022 00:00:00 02/01/2022 12:13:28 [id number] [facility] Internal Med [facility] [address] [place] [address] 0 05/14/2022 00:00:00 05/14/2022 17:45:49 [id number] [facility] Internal Med [facility] [address] [place] [address] [address] 08/09/2022 00:00:00 08/09/2022 11:42:46 [id number] [facility] Internal Med [facility] [address] [address] 0 12/19/2022 00:00:00 12/19/2022 15:24:47 [id number] Grecia Joy MD [facility] Internal Med [facility] [address] [address] 0 02/14/2023 11:18:06 02/14/2023 12:19:11 Chest pain 13658677 R07.9 Gastroesop hageal reflux disease 421131025 K21.9 Pure hypercholesterolemia 236084279 E78.00 Recurrent hernia of anterior abdominal wall 491683772 K43.9 [id number] Grecia Joy MD [facility] Internal Med [facility] [address] [address] 0 03/28/2023 11:42:06 03/28/2023 12:23:06 Cardiomyopathy 37649178 I42.9 Pure hypercholesterolemia 443578131 E78.00 Gastroesop hageal reflux disease 305363358 K21.9 Chronic pain syndrome 37 5342163 G89.4 [id number] Grecia Joy MD [facility] Internal Med [facility] [address] [address] 0 06/24/2023 11:53:23 06/24/2023 14:21:53 Mass of left breast [id number] N63.20 [id number] Jordan mckeon MD [facility] General Surgery [address] [address] 1 07/09/2023 11:09:50 07/09/2023 15:54:15 Mass of left breast 3838604274 [id number] N63.20 [id number] Jordan mckeon MD [facility] General Surgery [address] [place] [address] 1 07/23/2023 11:29:51 07/23/2023 13:41:44 [id number] Grecia Joy MD [facility] Internal Med [facility] [address] [address] 08/01/2023 11:11:48 08/01/2023 11:45:15 Cardiomyopathy 32986786 I42.9 Pure hypercholesterolemia 058231170 E78.00 Gastroesop hageal reflux disease 681424790 K21.9 Chronic ob structive pulmonary disease 21268896 J44.9 [id number] Grecia Joy MD [facility] Internal Med [facility] [address] [address] 12/05/2023 11:08:09 12/05/2023 12:26:00 Cardiomyopathy 80861129 I42.9 Pure hypercholesterolemia 658414712 E78.00 Male hypogonadism 083701 06 E29.1 Gastroesop hageal reflux disease 893331471 K21.9 Chronic pain syndrome 37 4534640 G89.4 Disorder of prostate 302 [address] N42.9 [id number] Grecia Joy MD [facility] Internal Med [facility] [address] [address] 04/20/2024 11:43:28 04/20/2024 12:38:22 Cardiomyopathy 37702223 I42.9 Pure hypercholesterolemia 205027257 E78.00 Gastroesop hageal reflux disease 535311256 K21.9 Chronic pain syndrome 37 4574116 G89.4 Amaurosis fugax 18930078 G45.3 [id number] Grecia Joy MD [facility] Internal Med [facility] [address] [address] 08/24/2024 11:18:40 08/24/2024 11:59:07 Administration of influenza vaccine [id number] Z23 Adult [facility] th examination 505987431 Z00.00 Depression screening 171 391989 Z13.31 Cardiomyopathy 27231030 I42.9 Essential hypertension 89928635 I10 Gastroesop hageal reflux disease 415595061 K21.9 Pure hypercholesterolemia 985812911 E78.00 Abdominal pain 37203002 R10.9 [id number] Grecia Joy MD [facility] Internal Med [facility] [address] [address] 12/23/2024 10:32:31 12/23/2024 10:45:10 Cardiomyopathy 26204286 I42.9 Essential hypertension 28935396 I10 Gastroesop hageal reflux disease 283728464 K21.9 Pure hypercholesterolemia 199924921 E78.00 Disorder of prostate 302 40192 N42.9 Health Concerns Section Related Observation LastModified by Organization Detai ls LastModified Time None Recorded Concern Status LastModified by Organization Details LastModified Time None Recorded Advance Directives Directive None Recorded Payers Encounter Date Sequence Insurance Name Policy Number Policy Alejandre Covered Member ID Alejandre Member ID Guarantor Name 08/01/2023 1 [facility] BENEF[facility] (PPO) [id number] Leela E Dilip [id number] OI Terry E Dilip 12/05/2023 1 [facility] BENEFITS PL[facility] (PPO) [id number] Leela E Dilip [id number] OI Terry E Dilip 04/20/2024 1 [facility] BENEFITS PL[facility] (PPO) [id number] Leela E Dilip [id number] OI Terry E Dilip 08/24/2024 1 [facility] BENEFITS PL[facility] (PPO) [id number] Leela E Dilip [id number] OI Terry E Dilip 12/23/2024 1 [facility] [employer]EF[employer] (PPO) [id number] Leela E Dilip [id number] OI Terry E Dilip Notes Date Note Type Note Provider Name and Address Organization Details Recorded Time 3 text/html Patient Name: Terry CherryDate Of Service: July ( 08.01.2023 ): 1950 Age: 72 There has been approximately a 10 lb weight gain since 08/03/2021. This represents approximately a 5.5% change in weight. Weight change attributable to lifestyle changes. Vital Signs:Blood Pressure: Sitting Rt. Arm 120/72Pulse: Sitting 51 /min and RegularRespiratory Rate: 12Height 67.5 in or 1.7 mWeight 193 lb or 87.5 kgBMI 29.8Temperature: 97 F or 36.1 CPulse Oximetry: 96 % at rest on no oxygen Chief Complaint: Addressed in HPI Problems or conditions discussed in the HPI were the only ones reviewed during the encounter.Only social and family history addressed in the HPI were reviewed during this encounter. Attendant(s): NoneConstitutional and Systemic Symptoms:none Medication Reconciliation: from medication list. Utmmknlusjs74/01/2023: CT scan of the abdomen and pelvis demonstrates mild interstitial infiltrates in the lung bases with some coronary artery calcification. Diffuse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
--- OUTSIDE RECORDS SUMMARY | 2025-02-04 10:37 | XMS_ITS | Clinical Summary ---
Author Organization [facility] Address [address] [place] [address] Phone Care Team Providers Care Flight Surgeon Name Role Phone REMA FERRARI Primary Care Provider Reason for Visit and Chief Complaint The Chief Complaint is: Ingrown F/U Plan of Treatment Healing well. No further care needed RTC PRN - Last Documented On 07/24/2022 1:33PM ; [facility] Instructions to patient Intervention and counseling on cessation of tobacco use Last Documented On 2 1:00PM ; [facility] Assessments Includes: Assessments from this encounter Findings - [L60.0 - Ingrowing nail] Ingrowing nail - Last Documented On 07/24/2022 1:33PM ; [facility] - [M79.674 - Pain in right toe(s)] Pain in right toe - Last Documented On 07/24/2022 1:33PM ; [facility] Instructions Includes: Instructions from this encounter Instructions to patient Intervention and counseling on cessation of tobacco use Last Documented On 2 1:00PM ; [facility] Medical Equipment - Implanted Devices Includes: Current Devices No Medical Equipment Recorded Medications Includes: Medications discussed during this encounter and other current Medications Current Medications (continue as prescribed) Testosterone 30 MG/ACT Transdermal Solution 11/12/2022 Provider: GRECIA FERRARI Diagnosis: Last Documented On 3 11:13AM By Zahida RUIZ ; [facility] Atorvastatin Calcium 20 MG Oral Tablet 11/11/2022 Pr ovider: GRECIA FERRARI Diagnosis: Last Documented On 3 11:13AM By Zahida RUIZ ; [facility] Oxybutynin Chloride ER 10 MG Oral Tablet Extended Release 24 Hour 11/04/2022 Provider: Diagnosis: Last Documented On 1:43PM By Zahida RUIZ ; [facility] ALPRAZolam 0.5 MG Oral Tablet 07/13/2022 Provider: GRECIA FERRARI Diagnosis: Last Documented On 07/24/2022 12:59PM By Johnny RUIZ ; [facility] HYDROcodone-Acetaminophen 7.5-325 MG Oral Tablet 07/13 Provider: GRECIA FERRARI Diagnosis: Last Documented On 07/24/2022 12:59PM By Johnny RUIZ ; [facility] Testosterone 30 MG/ACT Transdermal Solution 07/12/2022 Provider: GRECIA FERRARI Diagnosis: Last Documented On 07/24/2022 12:59PM By Johnny RUIZ ; [facility] Diclofenac Sodium 75 MG Oral Tablet Delayed Release 07/09/2022 Provider: GRECIA FERRARI Diagnosis: Last Documented On 07/24/2022 12:59PM By Johnny RUIZ ; [facility] traZODone HCl 50 MG Oral Tablet 06/29/2022 Provider: GRECIA FERRARI Diagnosis: Last Documented On 07/24/2022 12:59PM By Johnny RUIZ ; [facility] Medications Administered Includes: Administered Medications from this encounter No Administered Medications Recorded Vital Signs Includes: Vital Signs from this encounter Vital Name 07/24/2022 01:00P Blood Pressure Sitting L 126/80 BP Cuff Size Large Pulse Rate-Sitting (bpm) 21 Respiration Rate (breaths/min) 21 Temp-Tympanic (F) 96.4 Oxygen Saturation (%) 97 Last Documented: On 07/24/2022 1:00PM ; [facility] Results Includes: Results discussed during this [...] 07/24/2022 Last Documented On 2 1:33PM ; [facility] Smoking Status Unknown Procedures and Surgical History Includes: Procedures from this encounter Procedures Code Diagnosis Performing Provider Service L ocation Service Date intervention and counseling on cessation of tobacco use 4000F Last Documented On 2 1:00PM ; [facility] use of tobacco assessment performed 1000F Last Documented On 2 1:00PM ; [facility] patient screened for future fall risk: documentation of any fall with injury in past year 1100F Last Documented On 2 1:00PM ; [facility] review of medications documented 1160F Last Documented On 2 1:32PM ; [facility] encouragement to exercise Last Documented On 2 1:32PM ; [facility] Clinical summary provided to patient Last Documented On 2 1:32PM ; [facility] Medical History Includes: Medical History addressed during this encounter Description Last Updated Pain/condition occurs when weight-bearin g 07/10/2022 Last Documented On 2 12:59PM ; [facility] Family History Includes: Family History addressed [...] Diagnosis CHECK UP ALEXEI DA SILVA DPM [facility] 2 12:46PM 12:59PM Ingrowing Nail,Limb Pain Right Toe Insurance Includes: Active Insurance Policies Plan Name Member ID Group # Subscriber Relationship Effect elia Dates 1 - [employer] [id number] PEPITO MONGE Self Clinical Notes Includes: Clinical Notes from this encounter No Clinical Notes Recorded
--- OUTSIDE RECORDS SUMMARY | 2025-02-04 10:37 | XMS_ITS | CONTINUITY OF CARE DOCUMENT ---
Author Name marcelokashkarina Address Unknown Organization [facility] Address [address] [place] [address] Phone [phone] Care Team Providers Care Price Analyst Name Role Phone Gabriela WHEELER, Beni Unavailable [phone] GRECIA FERRARI MD Unavailable GRECIA FERRARI MD Unavailable [phone] PROBLEMS Condition Status Date Provider Notes Hyperlipidemia active Beni Ochoa MD COPD active Beni Ochoa MD Chest pain active Beni Ochoa MD Fatigue active Beni Ochoa MD Dyspnea on exertion active Beni lacey MD Former smoker active Beni Ochoa MD Elevated blood pressure active Beni mahoney MD Hypertension active eBni Ochoa MD Hyperglycemia active Beni Ochoa MD Abnormal nuclear stress test active Go lyons CAD active [facility] Cardiomyopathy active [facility] ENCOUNTERS Date Type Provider Location Encounter Diag nosis 6 - 6 In-person encounter Office Visit Beni Ochoa MD [facility] 8 - 1 In-person encounter Office Visit Beni Ochoa MD [facility] 9 - 9 In-person encounter Office Visit Beni Ochoa MD [facility] Abnormal nuclear stress testCADCardiomyopathy 1 - 2 In-person encounter Office Visit Beni Ochoa MD [facility] HyperlipidemiaCOPDChest painFatigueDyspnea on exertionFormer smokerElevated blood [...] Moreira NP cigarette use yes Jo-Ann phillip [employer]PER[employer] smoking status Former smoker Jo-Ann gates NP [...] (inactive) Management Plan continue current therapy Jo-Ann Moreira NP HRA, CV Assess/Plan, Angina (inactive) Management Plan continue current therapy Goodalys Medinabrenda HRA, CV Assess/Plan, Angina (inactive) Management Plan continue current therapy [facility] INSURANCE PROVIDERS Payer name Policy type / Coverage type [place] red green party ID [employer] Other [id number] ADVANCE DIRECTIVES Name Date DISCUSSED - NO DECISION MADE TREATMENT PLAN Date Name Performer [id number],C, R educed EF 30-35% by cath on 02/2023, he has been started on Entresto and is tolerating. [facility] Go Carolbrenda [id number],C, n o chest pain n on obstructive CAD Go Carolbrenda [id number],C,m ultifactorial, likely due to cardiomypathy, CHF, his EF is 30-35, will [facility] therapy [facility] Carolbrenda [id number],C, B P today: 122/72 P rior BP: 122/80 (03/15/2023) Go Carolbrenda [id number],C, M ild to moderate three vessel CAD with no significant obstructive disease by cath 02/2023 I reviewed the importance of lifestyle and dietary modification with the patient. o ptimize medical therapy [facility] [id number],C,R educed EF 30-35% by cath on 02/2023, he has been started on Entresto and is tolerating. [facility] W ill start Carvedilol 3.125 mg BID S tart Spironolactone 12.5 mg [facility] [id number],C,l ikley multifactorial, most likely due to cardiomypathy, possible CHF, his EF is 30-35, will optimize medical therapy [facility] [id number],S,non obstructi ve CAD [facility] [id number],C,B P is satisfactory. BP today: 122/80 P rior BP: 164/76 (02/15/2023) [facility] [id number],C,M ild to moderate three vessel CAD with no significant obstructive disease by cath 02/2023 I reviewed the importance of lifestyle and dietary modification with the patient. o ptimize medical therapy [facility] [id number],C, Beni mahoney MD [id number],C, Beni mahoney MD [id number],C, H is updated medication list for this problem includes: Atorvastatin 20 Mg Tablet (Atorvastatin) [facility] [id number],W, will check echo and stress nuclear to rule out ischemia. 62919 HIGH 60-74 min (CPT-31123) [facility] [id number],W, will check echo and stress nuclear to rule out ischemia. Take Nitro as needed for your chest pain O rders: C omplete Echo (CPT-61586) S tress Regadenoson (CPT-61607) C OMPREHENSIVE METABOLIC PANEL, W/EGFR (89853) L IPID PANEL (7350) H EMOGLOBIN A1c (496) C BC (INCLUDES DIFF/PLT) (6399) T SH, free T4, total T3 (7444) 9 9205 HIGH 60-74 min (CPT-73897) Go jakeyi [id number],N,c omplains of exertional chest pain, increased fatigue and exertional SOB, he has noticed a decrease in his exertional capapcity, will check echo and stress nuclear to rule out ischemia. Take Nitro as needed for your chest pain O rders: C omplete Echo (CPT-91038) S tress Regadenoson (CPT-58074) C OMPREHENSIVE METABOLIC PANEL, W/EGFR (14908) L IPID PANEL (7600) H EMOGLOBIN A1c (496) C BC (INCLUDES DIFF/PLT) (6399) T SH, free T4, total T3 (7444) 9 9205 HIGH 60-74 min (CPT-66891) Go tobias [id number],C,B P is elevated today but better at home, will have him monitor for now. [facility]: n o chest pain n on obstructive CAD [facility] Telehealth: H is updated medication list for this problem includes: Carvedilol 3.125 Mg Tablet (Carvedilol) ..... Take 1 tablet by mouth twice a day Spironolactone 25 Mg Tablet (Spironolactone) ..... Take 1/2 tablet by mouth every day [facility] Telehealth: R educed EF 30-35% by cath on 02/2023, he has been started on Entresto and is tolerating. [facility] ECHO: 08/28/24 impaired LV relaxation, EF 45%, mild-mod MR, mild TR [facility] Telehealth: M ild to moderate three vessel [...] Entresto and is tolerating. [facility] Electrophysiology: n o chest pain n on obstructive CAD [facility] Electrophysiology:mu ltifactorial, likely due to cardiomypathy, CHF, his EF is 30-35, will optimize medical therapy [facility] Electrophysiology: B P today: 122/72 P rior BP: 122/80 (03/15/2023) [facility] Electrophysiology: M ild to moderate three vessel CAD with no significant obstructive disease by cath 02/2023 I reviewed the importance of lifestyle and dietary modification with the patient. o [facility]timize medical therapy [facility] Elect[facility]:Re duced EF 30-35% by cath on 02/2023, he has been started on Entresto and is tolerating. [facility] therapy W ill start Carvedilol 3.125 mg BID S tart Spironolactone 12.5 mg [facility] Electrophysiology:jackie russell multifactorial, most likely due to cardiomypathy, possible CHF, his EF is 30-35, will optimize medical therapy [facility] Electrophysiology:non obstructiv e CAD [facility] Electrophysiology:BP is satisfactory. BP today: 122/80 P rior BP: 164/76 (02/15/2023) [facility] Electrophys[facility]:Mi ld to moderate three vessel CAD [...] and stress nuclear to rule out ischemia. 24680 HIGH 60-74 min (CPT-91442) Beni Ochoa MD Cardiology: will se ck echo and stress nuclear to rule out ischemia. Take Nitro as needed for your chest pain O rders: C omplete Echo (CPT-32640) S tress Regadenoson (CPT-81522) C OMPREHENSIVE METABOLIC PANEL, W/EGFR (78941) L IPID PANEL (7600) H EMOGLOBIN A1c (496) C BC (INCLUDES DIFF/PLT) (6399) T SH, free T4, total T3 (7444) 9 9205 HIGH 60-74 min (CPT-37663) Beni Ochoa MD Cardiology:complains of exertional chest pain, increased fatigue and exertional SOB, he has noticed a decrease in his exertional capapcity, will check echo and stress nuclear to rule out ischemia. T reid Nitro as needed for your chest pain O rders: C omplete Echo (CPT-12309) S tress Regadenoson (CPT-18561) C OMPREHENSIVE METABOLIC PANEL, W/EGFR (42294) L IPID PANEL (7600) HEMOGLOBIN A1c (496) C BC (INCLUDES DIFF/PLT) (6399) T SH, free T4, total T3 (7444) 9 9205 HIGH 60-74 min (CPT-40477) Beni Ochoa MD Cardiology:BP is [place] vated [...]
== END 2025-02-04 09:58 | disposition home or self-care (01) ==
PROVIDERS: PCP Internal Medicine; Visit Provider Internal Medicine Gastroenterology
DX: R14.0 Abdominal distension (gaseous) (principal); R11.0 Nausea
CPT/HCPCS: 78264; A9541

== ENCOUNTER 2025-09-30 13:56 | Outpatient (CLI) | payer OTHER, SELFPAY ==
--- NOTE | ~2025-09-30 | MR_ITS ---
EXAMINATION: MR cervical spine wo con DATE: 09/30/2025 14:57 INDICATION: Cervical disc disorder with myelopathy. TECHNIQUE: Magnetic resonance imaging (MRI) of the cervical spine was performed without intravenous contrast. COMPARISON: None FINDINGS: There is 2 mm retrolisthesis of C5 on C6 and 2 mm anterolisthesis of C7 on T1. Vertebral body heights are normal. There is moderately decreased disc height at C3-C4, severely decreased disc height at C5-C6, and mildly decreased disc height at C6-C7. The spinal cord signal intensity is normal. The following disc levels are specifically discussed: C2-C3: The disc does not extend beyond the endplate margin. There is no uncovertebral joint osteoarthritis. There is mild right and severe left facet joint osteoarthritis. There is moderate left neural foraminal stenosis. There is no central canal stenosis. C3-C4: The disc does not extend beyond the endplate margin. There is ankylosis of the uncovertebral joints with mild hypertrophy. There is moderate right facet joint osteoarthritis. There is ankylosis of left facet joint with severe hypertrophy. There is mild bilateral neural foraminal stenosis. There is no central canal stenosis. C4-C5: There is a central extrusion. There is mild bilateral uncovertebral joint osteoarthritis. There is severe bilateral facet joint osteoarthritis. There is mild bilateral neural foraminal stenosis. There is mild central canal stenosis. C5-C6: The disc is bulging. There is severe bilateral uncovertebral joint osteoarthritis. There is mild bilateral facet joint osteoarthritis. There is moderate right and mild left neural foraminal stenosis. There is mild central canal stenosis with ventral indentation of the spinal cord. C6-C7: The disc is bulging. There is severe bilateral uncovertebral joint osteoarthritis. There is mild right and moderate left facet joint osteoarthritis. There is moderate bilateral neural foraminal stenosis. There is mild central canal stenosis. C7-T1: There is a central protrusion. There is mild bilateral uncovertebral joint osteoarthritis. There is severe bilateral facet joint osteoarthritis. There is mild bilateral neural foraminal stenosis. There is mild central canal stenosis. IMPRESSION: 1. Severe cervical spondylosis. Reviewed, dictated and finalized at location E. TER CASTINGS
--- NOTE | ~2025-09-30 | XR_ITS ---
XR hip LT 2V w AP pelvis 09/30/2025 14:30 Indication: MRI clearance Procedure: 2 views left hip Comparison: No prior studies for comparison. Findings: There is a left total hip arthroplasty. There are multiple small metallic densities surrounding the hip of uncertain origin. No fracture or traumatic malalignment. There is lower lumbar spondylosis. Impression: 1: Multiple metallic densities are identified surrounding the left hip of uncertain origin. Reviewed, dictated and finalized at location I. [employer]ATION SOFTWARE DEVELOPER Impression: 1: Multiple metallic densities are identified surrounding the left hip of uncer tain origin.
== END 2025-09-30 13:57 | disposition home or self-care (01) ==
PROVIDERS: PCP Internal Medicine; Visit Provider Internal Medicine
DX: M43.02 Spondylolysis, cervical region (principal); M85.88 Other specified disorders of bone density and structure, other site
CPT/HCPCS: 72141; 73502